=== PATIENT | female | born 1990 | race Caucasian/White ===

== ENCOUNTER 2020-06-21 16:45 | Outpatient (REF) | payer OTHER, SELFPAY ==
[2020-06-22 09:09] LABS: CT PCR NOT DETECTED (Not Detect.); NG PCR NOT DETECTED (Not Detect.)
[2020-06-22 10:30] LABS: BV Int Neg Control Negative (Negative); BV Int Pos Control Positive (Positive)
== END 2020-06-21 16:46 | disposition home or self-care (01) ==
LOC: HO.LNP 16:45
PROVIDERS: Visit Provider Nurse Practitioner Family
DX: Z20.2 Contact with and (suspected) exposure to infections with a predominantly sexual mode of transmission (principal)
CPT/HCPCS: 87480; 87491; 87510; 87591; 87660

== ENCOUNTER 2021-05-06 19:49 | Emergency (ER) | payer OTHER, SELFPAY ==
--- NOTE | ~2021-05-06 | CT_ITS ---
EXAMINATION: CT ABDOMEN AND PELVIS WITHOUT CONTRAST CLINICAL INFORMATION: Right-sided pain COMPARISON: None TECHNIQUE: Multidetector volumetric imaging was performed from the superior aspect of the liver through the pubic symphysis. Sagittal and coronal reformatted images were obtained on the technologist's workstation. This CT examination was performed using dose optimization techniques as appropriate, variously including the following: *Automated exposure control *Adjustment of mA and/or kV according to patient size (this includes techniques or standardized protocols for targeted exams where dose is matched to indication/reason for exam; i.e. extremities or head) *Use of iterative reconstruction technique DLP: 941 mGy-cm FINDINGS: LUNG BASES: The visualized lung bases are unremarkable. LIVER, GALLBLADDER, AND BILIARY TREE: The liver is normal in size, shape, and attenuation. No focal hepatic lesion or biliary ductal dilatation is present. Punctate calcification present in the gallbladder may represent a calculus (4:227) The gallbladder is otherwise unremarkable with no evidence of additional radiopaque gallstones, gallbladder wall thickening, or obvious pericholecystic inflammatory changes. PANCREAS: Unremarkable. SPLEEN: Unremarkable. ADRENAL GLANDS: Unremarkable. KIDNEYS AND URETERS: Right: There is fullness in the right renal collecting system and dilatation of the proximal right ureter with surrounding stranding. However, no stone or obstructing lesion is seen within the right ureter. No right renal masses are seen. Perhaps findings could be due to a recently passed calculus which is no longer in the bladder. Left: The left kidney and ureter appear normal. BLADDER: Unremarkable. GASTROINTESTINAL TRACT: The small and large bowel are unremarkable. The appendix is unremarkable. ABDOMINAL WALL: No significant hernia is appreciated. LYMPH NODES: Normal. VASCULAR: Unremarkable. PELVIC VISCERA: Unremarkable. OSSEOUS STRUCTURES: Unremarkable. CT/CT abdomen pelvis wo con IMPRESSION: 1. There is fullness in the right renal collecting system with some mild stranding around the ureter. No stones are seen. Perhaps the patient had a recently passed tiny stone. 2. Cholelithiasis without cholecystitis
[2021-05-06 20:15] VITALS: BP 180/110; PULSE 102; RESP 18; TEMP 36.7; O2SAT 99; BMI 38.9
--- NOTE | 2021-05-06 21:21 | ED_ITS ---
HPI - Abdominal Pain General Chief Complaint: Abdominal Pain Stated Complaint: Abd pain Time Seen by Provider: 05/06/21 21:21 Source: patient Mode of arrival: ambulatory Limitations: no limitations History of Present Illness HPI narrative: Patient history of hypertension no significant abdominal problems in the past comes here for sudden onset of pain in the right upper side started yesterday at 15:00 sharp in onset off and on getting the pain no nausea no vomiting no relation with food appetite normal no urinary complaints patient never had similar pain in the past. No family history of kidney stone no incre ase in pain on ambulation Related Data Home Medications Medication Instructions Recorded Confirmed levonorgestrel 0.15 mg-ethinyl tab PO 06/21/20 04/14/21 estradiol 0.03 mg tablet Previous Rx's Medication Instructions Recorded amlodipine 5 mg tablet 5 mg PO DAILY #90 tab 06/08/20 hydrochlorothiazide 25 mg tablet 25 mg PO DAILY #90 tab 07/05/20 ciprofloxacin HCl 500 mg tablet 500 mg PO BID #20 tab 05/06/21 (Cipro) Allergies Allergy/AdvReac Type Severity Reaction Status Date / Time No Known Allergies Allergy Verified 04/14/21 13:55 [No Known Allergies*] Review of Systems Review of Systems Yes all other systems are reviewed and are negative Physical Exam Vital Signs: Vital Signs: Last Vital Signs Temp 98.5 F 05/06/21 23:20 Pulse 84 05/06/21 23:20 Resp 15 05/06/21 23:20 BP 117/79 05/06/21 23:20 Pulse Ox 99 05/06/21 23:20 Body Mass Index 38.9 Appearance: Alert. Oriented X3. No acute distress. Eyes: No pallor or icterus ENT: Pharynx normal. Oral Mucosa moist Neck: Normal inspection. Neck supple. CVS: Normal heart rate and rhythm. Pulses normal. Respiratory: No respiratory distress. Equal air entry bilateral, no wheezing/rales/rhonchi Abdomen: Soft and mild tenderness right mid abdomen, Prater sign negative, no significant tenderness right lower quadrant Bowel sounds are present, no mass palpable, slight right CVA tenderness Skin: Skin warm and dry. Normal skin color. Normal skin turgor. Extremities: No lower extremity edema. No calf tenderness Neuro: Oriented X 3. MDM - Abdominal Pain MDM Narrative Medical decision making narrative: Patient's CT scan showed gallstones without any inflammatory changes fullness of the right pelvic kidney pelvis likely patient passed on lab workup shows WBC in the urine patient was given IV Rocephin discharge patient home on [facility] Lab Data Attestation: I reviewed the patient's lab results. Result diagrams: 05/06/21 21:13 05/06/21 21:13 Labs: Lab Results 05/06/21 05/06/21 05/06/21 Range/Units 21:13 21:13 21:13 WBC 15.0 H (4.8-10.8) X10*3/uL RBC 4.90 (4.20-5.50) X10*6/uL Hgb 14.7 (12.0-16.0) g/dl Hct 42.1 (37-47) % MCV 85.9 (80-98) fL MCH 30.0 (27.0-33.0) pg MCHC 34.9 (31.0-35.0) g/dl RDW 11.6 (11.0-16.0) % Plt Count 440 H (160-400) X10*3/uL MPV 8.6 L (9.4-12.3) fL Immature Gran % (Auto) 0.3 (0.0-0.4) % Neut % (Auto) 59.6 (45-73) % Lymph % (Auto) 32.1 (20-40) % [place] % (Auto) 5.5 (2-11) % Eos % (Auto) 2.1 (0-4) % Baso % (Auto) 0.4 (0-2) % Lymph # (Auto) 4.8 (1.2-4.9) X10*3/uL [place] # (Auto) 0.8 (0.1-1.2) X10*3/uL Eos # (Auto) 0.3 (0.0-0.4) X10*3/uL Baso # (Auto) 0.1 (0.0-0.2) X10*3/uL Abs Immat Gran (auto) 0.05 H (0.00-0.03) X10*3/uL Absolute Neuts (auto) 8.9 H (2.0-8.3) X10*3/uL Absolute Nucleated RBC 0.000 (0.0-0.012) X10*3/uL Nucleated RBC % (auto) 0.0 (0.0-0.2) /100WBC Sodium 139 (135-145) mmol/L Potassium 3.9 (3.3-5.1) mmol/L Chloride 103 (96-108) mmol/L Carbon Dioxide 24 (22-29) mmol/L Anion Gap 16 (12-20) BUN 17 H (9-16) mg/dL Creatinine 1.03 (0.5-1.4) mg/dL Estim Creat Clear Calc 88.3 Estimated GFR > 60 Random Glucose 94 (60-115) mg/dL Calcium 9.5 (8.4-10.2) mg/dL Total Bilirubin 0.3 (0.0-1.0) mg/dL AST 19 (5-31) U/L ALT 21 (0-31) U/L Alkaline Phosphatase 64 (39-117) U/L Total Protein 7.2 (6.5-8.0) g/dL Albumin 4.1 (3.5-5.0) g/dL Urine Color YELLOW Urine Appearance CLOUDY Urine pH 6.0 (5.0-8.0) Ur Specific [place] >= 1.030 H (1.005-1.025) Urine Protein 2+ H (NEG-TRACE) MG/DL Urine Glucose (UA) NEG (NEG) MG/DL Urine Ketones NEG (NEG) MG/DL Urine Blood 3+ H (NEG) Urine Nitrite POS H (NEG) Ur Leukocyte Esterase 1+ H (NEG) Urine RBC 10-14 H (0) /HPF Urine WBC TNTC H (0-4) /HPF Urine WBC Clumps NOTED Ur Squamous Epith Cells TRACE /LPF Urine Bacteria 2+ /LPF Urine Mucus TRACE /LPF Urine Test (NEGATIVE) 05/06/21 Range/Units 21:13 WBC (4.8-10.8) X10*3/uL RBC (4.20-5.50) X10*6/uL Hgb (12.0-16.0) g/dl Hct (37-47) % MCV (80-98) fL MCH (27.0-33.0) pg MCHC (31.0-35.0) g/dl RDW (11.0-16.0) % Plt Count (160-400) X10*3/uL MPV (9.4-12.3) fL Immature Gran % (Auto) (0.0-0.4) % Neut % (Auto) (45-73) % Lymph % (Auto) (20-40) % [place] % (Auto) (2-11) % Eos % (Auto) (0-4) % Baso % (Auto) (0-2) % Lymph # (Auto) (1.2-4.9) X10*3/uL [place] # (Auto) (0.1-1.2) X10*3/uL Eos # (Auto) (0.0-0.4) X10*3/uL Baso # (Auto) (0.0-0.2) X10*3/uL Abs Immat Gran (auto) (0.00-0.03) X10*3/uL Absolute Neuts (auto) (2.0-8.3) X10*3/uL Absolute Nucleated RBC (0.0-0.012) X10*3/uL Nucleated RBC % (auto) (0.0-0.2) /100WBC Sodium (135-145) mmol/L Potassium (3.3-5.1) mmol/L Chloride (96-108) mmol/L Carbon Dioxide (22-29) mmol/L Anion Gap (12-20) BUN (9-16) mg/dL Creatinine (0.5-1.4) mg/dL Estim Creat Clear Calc Estimated GFR Random Glucose (60-115) mg/dL Calcium (8.4-10.2) mg/dL Total Bilirubin (0.0-1.0) mg/dL AST (5-31) U/L ALT (0-31) U/L Alkaline Phosphatase (39-117) U/L Total Protein (6.5-8.0) g/dL Albumin (3.5-5.0) g/dL Urine Color Urine Appearance Urine pH (5.0-8.0) Ur Specific [place] (1.005-1.025) Urine Protein (NEG-TRACE) MG/DL Urine Glucose (UA) (NEG) MG/DL Urine Ketones (NEG) MG/DL Urine Blood (NEG) Urine Nitrite (NEG) Ur Leukocyte Esterase (NEG) Urine RBC (0) /HPF Urine WBC (0-4) /HPF Urine WBC Clumps Ur Squamous Epith Cells /LPF Urine Bacteria /LPF Urine Mucus /LPF Urine Test NEGATIVE (NEGATIVE) Discharge Plan Discharge Clinical Impression: UTI (urinary tract infection) Qualifiers: Urinary tract infection type: acute cystitis Hematuria presence: without hematuria Qualified Code(s): N30.00 - Acute cystitis without hematuria Patient Disposition: Home, Self-Care Instructions: Urinary Tract Infection in Women (ED) Additional Instructions: Drink plenty of fluids Take antibiotic as prescribed Report to the ER if increased pain/fever/vomiting Prescriptions: New ciprofloxacin HCl [Cipro] 500 mg tablet 500 mg PO BID Qty: 20 RF: 0 No Action amlodipine 5 mg tablet 5 mg PO DAILY Qty: 90 RF: 8 hydrochlorothiazide 25 mg tablet 25 mg PO DAILY Qty: 90 RF: 8 levonorgestrel-ethinyl estrad 0.15-0.03 mg tablet PO RF: 0 PMFSH Past Medical History Medical History Depression HTN (hypertension) Surgical History No pertinent past surgical history Family History Family History Mother Mental health disorder Father No problems noted. Social History Social History Housing: Apartment Patient Tobacco Use Status: Current everyday Tobacco user Tobacco use type: Cigarette Cigarettes Per Day: 6 e-Cigarette/Vaping Use: Never Used Second Hand Smoke Exposure: No Advance Directives: No Patient : No service: No Current occupational status: employed
[2021-05-06 21:22] LABS: MANUAL DIFF FLAG NO
[2021-05-06 21:23] LABS: Basophils Absolute Auto 0.1 X10*3/uL (0.0-0.2); Basophils Percent Auto 0.4 % (0-2); Eosinophils Absolute Auto 0.3 X10*3/uL (0.0-0.4); Eosinophils Percent Auto 2.1 % (0-4); Hematocrit 42.1 % (37-47); Hemoglobin 14.7 g/dl (12.0-16.0); Imm Gran Abs Auto 0.05 X10*3/uL (0.00-0.03); Imm Gran Pct Auto 0.3 % (0.0-0.4); Lymphocytes Absolute Auto 4.8 X10*3/uL (1.2-4.9); Lymphocytes Percent Auto 32.1 % (20-40); Mean Corpuscular HGB Conc 34.9 g/dl (31.0-35.0); Mean Corpuscular Volume 85.9 fL (80-98); Mean Platelet Volume 8.6 fL (9.4-12.3); Monocytes Absolute Auto 0.8 X10*3/uL (0.1-1.2); Monocytes Percent Auto 5.5 % (2-11); Neutrophils Absolute Auto 8.9 X10*3/uL (2.0-8.3); Neutrophils Percent Auto 59.6 % (45-73); Platelet Count 440 X10*3/uL (160-400); Red Cell Distribution Width 11.6 % (11.0-16.0)
[2021-05-06 21:32] LABS: Appearance Urine CLOUDY; Color Urine YELLOW; Glucose Urine UA NEG (NEG); Leukocyte Esterase Urine 1+ (NEG); Nitrite Urine POS (NEG); Specific Gravity - Urine >= 1.030 (1.005-1.025); UACC Culture Trigger YES; Urine Blood 3+ (NEG); Urine Ketones NEG (NEG); Urine Protein 2+ MG/DL (NEG-TRACE)
[2021-05-06] MEDS: Morphine Sulfate 4 MG/ML CARTRIDGE IVPUSH (21:34)
[2021-05-06] MEDS: 0.9 % Sodium Chloride 1,000 ML 999 ML IVCONT (21:34)
[2021-05-06] MEDS: ondansetron HCL 4 MG/2 ML VIAL IVPUSH (21:34)
[2021-05-06 21:38] LABS: Alanine Aminotransferase 21 U/L (0-31); Albumin Level 4.1 g/dL (3.5-5.0); Alkaline Phosphatase 64 U/L (39-117); Anion Gap 16 (12-20); Aspartate Amino Transferase 19 U/L (5-31); Bilirubin Total 0.3 mg/dL (0.0-1.0); Blood Urea Nitrogen 17 mg/dL (9-16); Calcium 9.5 mg/dL (8.4-10.2); Carbon Dioxide 24 mmol/L (22-29); Chloride 103 mmol/L (96-108); Creatinine Clr Calc Pharmacy 88.3; Estimated Glomerular Filt Rate > 60; Glucose Random 94 mg/dL (60-115); Potassium 3.9 mmol/L (3.3-5.1); Sodium 139 mmol/L (135-145); Total Protein 7.2 g/dL (6.5-8.0)
[2021-05-06 21:43] LABS: UPreg QC Valid YES; Urine Pregnancy NEGATIVE (NEGATIVE)
[2021-05-06 21:54] LABS: WBC Clumps Urine NOTED; WBC Urine TNTC /HPF (0-4)
[2021-05-06 21:56] LABS: Bacteria Urine 2+ /LPF; Mucus Urine TRACE /LPF; Squamous Epithelial Cell Urine TRACE /LPF
[2021-05-06 23:20] VITALS: BP 117/79; PULSE 84; RESP 15; TEMP 36.9; O2SAT 99
[2021-05-06] MEDS: cefTRIAXone sodium 1 GM in 0.9 % Sodium Chloride 50 ML IV (23:24)
== END 2021-05-07 00:20 | disposition home or self-care (01) ==
PROVIDERS: Emergency Provider Internal Medicine; PCP Internal Medicine
DX: N30.00 Acute cystitis without hematuria (principal); R10.11 Right upper quadrant pain; F17.210 Nicotine dependence, cigarettes, uncomplicated; I10 Essential (primary) hypertension; Z79.899 Other long term (current) drug therapy; Z71.6 Tobacco abuse counseling
CPT/HCPCS: 36415; 74176; 80053; 81001; 81025; 85025; 87086; 87088; 87186; 96361; 96365; 96375; 99284; J0696; J2270; J2405

== ENCOUNTER 2021-07-07 07:03 | Emergency (ER) | payer OTHER, SELFPAY ==
[2021-07-07 07:25] VITALS: BP 140/91; PULSE 123; RESP 18; TEMP 36.6; O2SAT 98; BMI 40.2
--- NOTE | 2021-07-07 08:11 | ED.SKABFB ---
HPI - Skin/Abscess/Foreign Bdy General Chief complaint: Skin/Abscess/Foreign Body Stated complaint: boil r leg Time Seen by Provider: 07/07/21 07:52 Source: patient Mode of arrival: ambulatory Limitations: no limitations History of Present Illness HPI narrative: 30-year-old female who presents emergency department for evaluation of skin infection to the right thigh. Patient states that approximately 2 weeks prior she had infection to her right knee, she states that it started out as a pimple and then she popped the pimple. She states that she squeezed pus out of the knee abscess for several days and eventually this healed. She states that on Sunday, 5 days prior to evaluation she noticed redness and pain to her right inner thigh. She states that the redness and pain got worse and so she called her doctor on Sunday (2 days prior to evaluation) and was started on cephalexin 250 mg 4 times a day. She states she has also been applying heat to the area using a heating pad. She has been taking ibuprofen for pain as well. Despite this treatment, she states that the redness has not gotten better and the pain has gotten worse. She states the pain is a constant, burning sensation which is severe. The patient denied fever, chills, nausea, vomiting, weakness or fatigue. Related Data Home Medications Medication Instructions Recorded Confirmed levonorgestrel 0.15 mg-ethinyl tab PO 06/21/20 07/05/21 estradiol 0.03 mg tablet Previous Rx's Medication Instructions Recorded amlodipine 5 mg tablet 5 mg PO DAILY #90 tab 06/08/20 hydrochlorothiazide 25 mg tablet 25 mg PO DAILY #90 tab 07/05/20 cephalexin 250 mg capsule 250 mg PO Q6H #20 cap 07/05/21 cephalexin 250 mg capsule 250 mg PO QID 7 Days #28 cap 07/07/21 doxycycline hyclate 100 mg tablet 100 mg PO Q12H 7 Days #14 tab 07/07/21 morphine 15 mg immediate release 15 mg PO Q4-6H PRN #10 tab 07/07/21 tablet Allergies Allergy/AdvReac Type Severity Reaction Status Date / Time No Known Allergies Allergy Verified 07/05/21 13:29 [No Known Allergies*] Review of Systems Review of Systems: Yes all other systems are reviewed and are negative [facility] Past Medical History [facility] Narrative: Social history: She does smoke cigarettes, she occasionally drinks alcohol, she denies drug use. Medical History Depression HTN (hypertension) Morbid obesity Surgical History No pertinent past surgical history Family History Family History Mother Mental health disorder Father No problems noted. Social History Social History Housing: Apartment Patient Tobacco Use Status: Current everyday Tobacco user Tobacco use type: Cigarette Cigarettes Per Day: 6 e-Cigarette/Vaping Use: Never Used Second Hand Smoke Exposure: No Advance Directives: No Advance Directives Information Provided: No service: No Current occupational status: employed Physical Exam Vital Signs: Vital Signs: Last Vital Signs Temp 97.8 F 07/07/21 07:25 Pulse 123 H 07/07/21 07:25 Resp 18 07/07/21 07:25 BP 140/91 H 07/07/21 07:25 Pulse Ox 98 07/07/21 07:25 Body Mass Index 40.2 Const: General: cooperative, healthy appearing and no acute distress Orientation/consciousness: oriented to person and oriented to place Limitations: no limitations HENMT: Head: Yes normocephalic and Yes atraumatic Eyes: General: appearance normal, both eyes and all related structures Resp: Effort & Inspection: normal respiratory effort Skin: Other: 6 x 4 cm oval shaped erythema to the right medial thigh, the erythema is warm to the touch and does not ekaterina, the skin is indurated with no areas of flocculence, the erythema is tender to palpation Neuro: General: oriented to person and oriented to place Cognition (Neuro): normal cognition Extrem: Other: Extremities neurovascular intact, erythema to the right medial thighs discussed above Psych: Appearance: grossly normal Mental Status: mental status grossly normal Speech and movement: Normal speech and movement present Affect: normal affect Attitude: cooperative Course Course Course Narrative: 30-year-old female who presents emergency department for evaluation of 5 days of painful erythema to the right medial thigh, on cephalexin 250 mg 4 times a day for 2 days with no improvement of her erythema. Vital signs revealed an elevated blood pressure of 140/91 and elevated pulse of 123 otherwise were unremarkable. Physical examination did reveal a 6 x 4 cm oval area of erythema to the right medial thigh, the erythema is warm to the touch and is tender to palpation. The erythema is indurated but there was no clear flocculent area on my examination. Patient's presentation is consistent with a cellulitis versus early abscess. I will increase the patient's cephalexin to 500 mg 4 times a day for 1 week and also start the patient on doxycycline 100 mg twice a day for 7 days to give her MRSA coverage. The patient is having severe pain which is not relieved by ibuprofen or Tylenol therefore I will give her a limited prescription for morphine 15 mg every 4 hours as needed for pain (dispense 10). The patient was given verbal and printed instructions and discharged home. Discharge Plan Discharge Clinical Impression: Cellulitis Qualifiers: Site of cellulitis: extremity Site of cellulitis of extremity: lower extremity Laterality: right Qualified Code(s): L03.115 - Cellulitis of right lower limb Patient Disposition: Home, Self-Care Instructions: Cellulitis (ED) Additional Instructions: Early abscess verses indurated cellulitis Discharge Instructions Your exam is consistent with an infection of your skin (cellulitis). On my examination your skin is hard (indurated) and not soft and squishy (flocculent). Usually an abscess that needs to be drained is soft and squishy. I do not think that you have a drainable abscess at this time therefore I want to continue to treat you with antibiotics and heat. I am increasing your dose of Keflex (cephalexin). Take Keflex (cephalexin) 250 mg, pills, 2 pill 4 times a day for 7 days. This is an antibiotic that will help fight the non MRSA type infection. Also take doxycycline 100 mg pills, 1 pill twice a day for 7 days. This is an antibiotic that will fight MRSA type infections Take ibuprofen 200mg pills, 3 pills every 6 hours as needed for pain, Also take Tylenol(acetaminophen) 500 mg pills, 2 pills every 6 hours as needed for pain. For pain not relieved by ibuprofen or Tylenol take morphine 15 mg pills, 1 pill every 4 hours as needed for pain. Do not drive or work while taking this medication since they can cause sleepiness. Oxycodone is a narcotic medication that can be addicting. If you are concerned about addiction you can ask the pharmacist for less pills or do not get this prescription filled. Apply warm compresses or a heating pad on low for 15 minutes 4-6 times a day. This increases the blood flow to the area and helps the healing process. Stay off your feet and keep your leg elevated this will also help the healing process. Watch for signs of worsening infection or abscess formation which include fever, increased pain, increased redness or increased swelling, red lines traveling away from the cellulitis or if the red area turned soft and squishy. IF you think the infection is getting worse or if you develop any new symptoms that are concerning you, then return to the Emergency Department or follow up with your doctor for a recheck. Please follow up with your doctor in 2 days for a recheck. Please see the work note Prescriptions: New cephalexin 250 mg capsule 250 mg PO QID 7 Days Qty: 28 RF: 0 doxycycline hyclate 100 mg tablet 100 mg PO Q12H 7 Days Qty: 14 RF: 0 morphine 15 mg tablet 15 mg PO Q4-6H PRN (Reason: pain) Qty: 10 RF: 0 No Action amlodipine 5 mg tablet 5 mg PO DAILY Qty: 90 RF: 8 hydrochlorothiazide 25 mg tablet 25 mg PO DAILY Qty: 90 RF: 8 levonorgestrel-ethinyl estrad 0.15-0.03 mg tablet PO RF: 0 cephalexin 250 mg capsule 250 mg PO Q6H Qty: 20 RF: 0 Stand Alone Forms: Work/School Release
== END 2021-07-07 08:36 | disposition home or self-care (01) ==
PROVIDERS: Emergency Provider Emergency Medicine Emergency Medical Services; PCP Internal Medicine
DX: L03.115 Cellulitis of right lower limb (principal); M79.651 Pain in right thigh; I10 Essential (primary) hypertension; E66.01 Morbid (severe) obesity due to excess calories
CPT/HCPCS: 99282; 99283

== ENCOUNTER 2021-07-09 11:16 | Emergency (ER) | payer OTHER, SELFPAY ==
--- NOTE | ~2021-07-09 | US_ITS ---
EXAMINATION: US VENOUS WITH DOPPLER LOWER EXTREMITY, RIGHT CLINICAL INFORMATION: Right lower extremity swelling. COMPARISON: None TECHNIQUE: Ultrasound of the deep veins is performed from the hip to the calf with compression sonography and color and pulse Doppler assessment. Spectral analysis with color-flow imaging is performed. FINDINGS: There is normal venous compression and respiratory variation and augmented flow. The visualized common femoral vein, femoral vein, profunda femoral vein, popliteal vein, and the trifurcation region shows no evidence of deep venous thrombosis. There is no significant popliteal fossa cyst. It was difficult to compress the mid segment of the femoral vein due to pain; however, normal color flow is noted in this segment. If the patient's symptoms persist, followup ultrasound in 5 days 7 days might be of value to exclude proximal propagation from a non-visualized calf vein. In the area of redness and hard lump in the right mid thigh, there is evidence of subcutaneous soft tissue edema noted in the mid right thigh with an ill-defined hypoechoic area with increased peripheral vascularity measuring 2.2 x 1.8 x 2.4 cm. US/US venous duplex LE RT IMPRESSION: Compressibility in the mid segment of the right femoral vein could not be assessed due to pain; however, normal color flow is noted on color Doppler images. No DVT demonstrated in the right lower extremity. Soft tissue edema in the right mid thigh in the region of reddish skin discoloration and hard lump; ill-defined hypoechoic area in the region may represent focal fluid/abscess collection. Recommend clinical correlation. As clinically deemed necessary consider further evaluation with contrast-enhanced CT or MRI.
--- NOTE | ~2021-07-09 | CT_ITS ---
EXAMINATION: CT FEMUR WITH CONTRAST, RIGHT CLINICAL INFORMATION: Right inner thigh edema, induration, pain COMPARISON: None TECHNIQUE: Axial imaging. Sagittal and coronal reconstructions. 85 mL Omnipaque [address] examination was performed using dose optimization techniques as appropriate, variously including the following: *Automated exposure control *Adjustment of mA and/or kV according to patient size (this includes techniques or standardized protocols for targeted exams where dose is matched to indication/reason for exam; i.e. extremities or head) *Use of iterative reconstruction technique DLP: 297 mGy-cm FINDINGS: There were opacities in the medial subcutaneous tissues of the upper/mid thigh. The more prominent confluent changes extend a distance approximately 7 cm craniocaudal. No peripherally enhancing organized fluid collections identified by CT . The findings extend to the underlying fascial plane. There is skin thickening along the medial aspect of the thigh as well. Differential consideration include infectious, inflammatory etiologies.. No evidence of significant inflammatory changes or fluid deep to the fascial plane, the muscles or intramuscular fascial planes.. Subcentimeter right groin lymph nodes. No evidence of acute osseous abnormality. Articulation at the right hip joint is maintained. Mild right hip arthritis. CT/CT femur RT w con IMPRESSION: Findings in the medial subcutaneous tissues of the upper/mid thigh, including an area of more confluent changes. No peripherally enhancing organized fluid collection identified by CT . Differential consideration include infectious, inflammatory etiologies. Recommend clinical correlation, management and follow-up. Follow-up ultrasound or cross-sectional imaging could be considered if there is clinical concern for a worsening symptoms/developing abscess.
[2021-07-09 11:39] VITALS: BP 137/100; PULSE 102; RESP 18; TEMP 36.6; O2SAT 98; BMI 40.2
--- NOTE | 2021-07-09 12:06 | ED.GENADULT ---
HPI - General Adult General Chief complaint: General Medical <VITALIY Wan - Last Filed: 07/09/21 16:32> Stated complaint: ?rt leg cellulitis <VITALIY Wan - Last Filed: 07/09/21 16:32> Time Seen by Provider: 07/09/21 11:50 <VITALIY Wan - Last Filed: 07/09/21 16:32> Source: patient <VITALIY Wan - Last Filed: 07/09/21 16:32> Mode of arrival: ambulatory <VITALIY Wan Last Filed: 07/09/21 16:32> Limitations: no limitations <VITALIY Wan Last Filed: 07/09/21 16:32> History of Present Illness HPI narrative: 31-year-old female with no known medical history presents to the emergency department with concerns of right inner thigh pain, fevers and chills X6 days progressively worsening. Patient states she was seen here three days ago and was told she had right inner thigh cellulitis. Patient states she is on two different antibiotics. Which were prescribed to her three days ago, she states that the redness has not improved and the area has become tense, hard and much more painful. Patient has been applying heat to the area with little to no relief. She was prescribed morphine, however, she states the pain is so severe it isn't helping so she hasn't been taking it. She also reports subjective fevers and chills over the past few days. Denies SOB, nausea, vomiting, abdominal pain, headache, chest pain, weakness. <VITALIY Wan - Last Filed: 07/09/21 16:32> Onset (ago): day(s) (6) <VITALIY Wan Last Filed: 07/09/21 16:32> Location: right (right inner thigh ) <VITALIY Wan Last Filed: 07/09/21 16:32> Radiation: non-radiation <VITALIY Wan Last Filed: 07/09/21 16:32> Severity: severe <VITALIY Wan Last Filed: 07/09/21 16:32> Severity scale (1-10): 10 <VITALIY Wan - Last Filed: 07/09/21 16:32> Quality: burning and constant <VITALIY Wan - Last Filed: 07/09/21 16:32> Pain Consistency: constant <VITALIY Wan Last Filed: 07/09/21 16:32> Relieving factors: none <VITALIY Wan - Last Filed: 07/09/21 16:32> Exacerbating factors: none <VITALIY Wan - Last Filed: 07/09/21 16:32> Associated symptoms: fever/chills <VITALIY Wan - Last Filed: 07/09/21 16:32> Treatments prior to arrival: NSAID <VITALIY Wan Last Filed: 07/09/21 16:32> Related Data Home medications: Home Medications Medication Instructions Recorded Confirmed levonorgestrel 0.15 mg-ethinyl tab PO 06/21/20 07/05/21 estradiol 0.03 mg tablet Previous Rx's Medication Instructions Recorded hydrochlorothiazide 25 mg tablet 25 mg PO DAILY #90 tab 07/05/20 cephalexin 250 mg capsule 250 mg PO Q6H #20 cap 07/05/21 amlodipine 5 mg tablet 5 mg PO DAILY #90 tab 07/07/21 cephalexin 250 mg capsule 250 mg PO QID 7 Days #28 cap 07/07/21 doxycycline hyclate 100 mg tablet 100 mg PO Q12H 7 Days #14 tab 07/07/21 morphine 15 mg immediate release 15 mg PO Q4-6H PRN #10 tab 07/07/21 tablet oxycodone 5 mg tablet 5 mg PO BID PRN #6 tab 07/09/21 <VITALIY Wan - Last Filed: 07/09/21 16:32> Allergies/adverse reactions: Allergies Allergy/AdvReac Type Severity Reaction Status Date / Time No Known Allergies Allergy Verified 07/05/21 13:29 [No Known Allergies*] <VITALIY Wan Last Filed: 07/09/21 16:32> Review of Systems Review of Systems: Constitutional : No Weight loss, No Fever, No Chills, No Fatigue, No Malaise Eyes: No Eye Pain, No Swelling, No Redness Cardiovascular : No Chest Pain, No SOB, No Dyspnea on Exertion, No Orthopnea, No Edema, No Palpitations Respiratory : No Cough, No Sputum, No Wheezing Gastrointestinal : No Nausea, No Vomiting, No Diarrhea, No Constipation, No abdominal Pain, No Hematochezia, No Melena Genitourinary : No Dysuria, No Urinary Frequency, No Hematuria, Musculoskeletal : No joint pain, No Myalgias, No Joint Swelling Skin : No Skin Lesions, No rash, +cellulitis Neuro : No Weakness, No Numbness, No Dizziness, No Headache All other systems reviewed and are negative <VITALIY Wan - Last Filed: 07/09/21 16:32> [facility] Past Medical History Attestation statement: The following information was validated with the patient. <VITALIY Wan - Last Filed: 07/09/21 16:32> Source: old records reviewed and nursing notes reviewed <VITALIY Wan - Last Filed: 07/09/21 16:32> Medical History: Medical History Depression HTN (hypertension) Morbid obesity <VITALIY Wan - Last Filed: 07/09/21 16:32> Surgical History: Surgical History No pertinent past surgical history <VITALIY Wan - Last Filed: 07/09/21 16:32> Family History Family History: Family History Mother Mental health disorder Father No problems noted. <VITALIY Wan - Last Filed: 07/09/21 16:32> Social History Social History: Social History Housing: Apartment Patient Tobacco Use Status: Current everyday Tobacco user Tobacco use type: Cigarette Cigarettes Per Day: 6 e-Cigarette/Vaping Use: Never Used Second Hand Smoke Exposure: No Advance Directives: No Patient : No service: No Current occupational status: employed <VITALIY Wan - Last Filed: 07/09/21 16:32> Physical Exam Vital Signs: Vital Signs: Last Vital Signs Temp 98.1 F 07/09/21 14:39 Pulse 80 07/09/21 14:39 Resp 18 07/09/21 14:39 BP 98/60 07/09/21 14:39 Pulse Ox 99 07/09/21 14:39 Body Mass Index 40.2 <VITALIY Wan - Last Filed: 07/09/21 16:32> Vital Signs: Last Vital Signs Temp 98.1 F 07/09/21 14:39 Pulse 80 07/09/21 14:39 Resp 18 07/09/21 14:39 BP 98/60 07/09/21 14:39 Pulse Ox 99 07/09/21 14:39 Body Mass Index 40.2 <VITALIY Corcoran - Last Filed: 07/09/21 21:05> Appearance: Alert.? Oriented X3.? No acute distress.? Head: Normocephalic, atraumatic, no step-offs or deformities Eyes: Pupils equal, round and reactive to light.? ENT: Pharynx normal.? Neck: Normal inspection.? Neck supple.? CVS: Normal heart rate and rhythm.? Pulses normal.? Respiratory: No respiratory distress.? Breath sounds normal.? Abdomen: Soft and nontender.? Skin: Skin warm and dry.? Normal skin color.? Normal skin turgor.?+ area of erythema to right medial thigh with induration and pain to palpation. Extremities: No lower extremity edema.? No calf ttp. Negative sivakumar 5/5 strength to bilateral upper and lower extremities Back: No midline tenderness, no C-spine tenderness, full range of motion, no CVA tenderness bilaterally Neuro: Oriented X 3.? No motor deficit.? No sensory deficit. <VITALIY Wan - Last Filed: 07/09/21 16:32> Course Course Course Narrative: patient seen and examined agree with assessment and plan <VITALIY Corcoran Last Filed: 07/09/21 21:05> Reevaluation(s) Reevaluation #1: Patient is extremely nervous, and she is a tough stick. I was able to put in an 18 gauge IV in the left AC. She will be given 0.5 of Ativan. And Motrin for pain. <VITALIY Wan - Last Filed: 07/09/21 16:32> Time: 13:10 <VITALIY Wan - Last Filed: 07/09/21 16:32> Reevaluation #2: US- No DVT in the RLE. Soft tissue edema is noted in the right mid thigh. Ill defined hypoechoic area was noted that could represent focal fluid/abscess collection will do a CT with contrast to further evaluate this finding. <VITALIY Wan - Last Filed: 07/09/21 16:32> Time: 13:31 <VITALIY Wan - Last Filed: 07/09/21 16:32> Reevaluation #3: Slight leukocytosis noted, platelets are noted to be elevated, however it appears this is not new, she had elevated platelets on 05/06/21. Lactic 0.6. CK normal. No electrolyte abnormalities. CT of right lower extremity pending. The patient's vital signs have been repeated, patient's vital signs are now within normal limits, I suspect that patient's vitals were initially elevated secondary to anxiety, and severe pain. <VITALIY Wan - Last Filed: 07/09/21 16:32> Time: 14:57 <VITALIY Wan - Last Filed: 07/09/21 16:32> Additional Reevaluation(s): 1538 CT shows findings in subcutaneous tissues of the upper/mid thigh,including an area of more confluent changes. No peripherally enhancing organized fluid collection identified by CT. Patient will finish doses of IV antibiotics here and should continue her home PO antibiotics. I have advised her to continue applying heat to the area. This is likley an abcess forming, she should follow up with her PCP and may require a f/u ultrasound. I will also provide her with general surgeons information incase she would like a second opinion, this is not something that can be drained at the bedside here today. Patient has been given strict return precautions and has been told to return with fevers, chills, nausea, vomiting, abdominal pain, weakness, headache, chest pain, shortness of breath and/or worsening symptoms. <VITALIY Wan - Last Filed: 07/09/21 16:32> Medical Decision Making [facility] Narrative Medical decision making narrative: 1204 31-year-old female past medical history significant for depression, HTN presents to the emergency department with concerns of pain and swelling to the right inner thigh X 6 days and subjective fevers and chills X2 days progressively worsening. Patient states that she was seen here in the emergency department 3 days ago where she was told she had cellulitis, she was put on Keflex and doxycycline. She mentions that before the emergency department put her on medication her primary care provider had also put her on an antibiotic with no relief. She has been applying heat to the area. Upon physical examination patient appears uncomfortable but in no acute distress. Lungs are clear to auscultation bilaterally. S1 and S2 are appreciated free of murmurs. Abdomen is soft nontender nondistended. There is an area of erythema to right medial thigh with induration and pain to palpation. Area of induration measures around 12cm X 7 cm. Negative homans sign. No calf tenderness to palpation b/l. No focal neuro deficits. Patient is noted to be hypertensive and tachycardic. Patient reports severe pain at this time which could be contributing to these abnormal vital signs, and she has a history of hypertension, vitals will be checked again when patient appear s more comfortable. A sepsis focus exam was done. At this time infection is suspected (1204) basic labs will be obtained, blood cultures, lactic, CK, covid, mag, and venous duplex right lower exremitiy and extremity US. Will also give fluids, vanco and zosyn Will rule out abcess, DVT, cellulitis <VITALIY Wan - Last Filed: 07/09/21 16:32> Lab Data Result diagrams: : 07/09/21 13:06 07/09/21 13:05 <VITALIY Wan - Last Filed: 07/09/21 16:32> Labs: Lab Results 07/09/21 07/09/21 07/09/21 Range/Units 13:04 13:05 13:06 WBC 11.7 H (4.8-10.8) X10*3/uL RBC 4.65 (4.20-5.50) X10*6/uL Hgb 13.9 (12.0-16.0) g/dl Hct 40.9 (37.0-47.0) % MCV 88.0 (80.0-98.0) fL MCH 29.9 (27.0-33.0) pg MCHC 34.0 (31.0-35.0) g/dl RDW 11.6 (11.0-16.0) % Plt Count 416 H (160-400) X10*3/uL MPV 8.5 L (9.4-12.3) fL Immature Gran % (Auto) 0.3 (0.0-0.4) % Neut % (Auto) 63.4 (45-73) % Lymph % (Auto) 28.3 (20-40) % Smyth % (Auto) 5.6 (2-11) % Eos % (Auto) 2.1 (0-4) % Baso % (Auto) 0.3 (0-2) % Lymph # (Auto) 3.3 (1.2-4.9) X10*3/uL Smyth # (Auto) 0.7 (0.1-1.2) X10*3/uL Eos # (Auto) 0.2 (0.0-0.4) X10*3/uL Baso # (Auto) 0.0 (0.0-0.2) X10*3/uL Abs Immat Gran (auto) 0.03 (0.00-0.03) X10*3/uL Absolute Neuts (auto) 7.4 (2.0-8.3) x10*3/uL Absolute Nucleated RBC 0.000 (0.0-0.012) X10*3/uL Nucleated RBC % (auto) 0.0 (0.0-0.2) /100WBC Sodium 138 (135-145) mmol/L Potassium 4.2 (3.3-5.1) mmol/L Chloride 104 (96-108) mmol/L Carbon Dioxide 25 (22-29) mmol/L Anion Gap 13 (12-20) BUN 10 (9-16) mg/dL Creatinine 0.84 (0.5-1.4) mg/dL Estim Creat Clear Calc 105.2 Estimated GFR > 60 Random Glucose 91 (60-115) mg/dL Lactic Acid 0.6 (0.5-2.0) mmol/L Calcium 9.1 (8.4-10.2) mg/dL Magnesium 1.9 (1.6-2.6) mg/dL Total Bilirubin 0.4 (0.0-1.0) mg/dL AST 13 (5-31) U/L ALT 14 (0-31) U/L Alkaline Phosphatase 64 (39-117) U/L Total Creatine Kinase 84 (26-140) U/L Total Protein 6.8 (6.5-8.0) g/dL Albumin 3.8 (3.5-5.0) g/dL Urine Test (NEGATIVE) COVID-19 (SP) (Negative) COVID-19 Clin Com 07/09/21 07/09/21 Range/Units 13:07 13:51 WBC (4.8-10.8) X10*3/uL RBC (4.20-5.50) X10*6/uL Hgb (12.0-16.0) g/dl Hct (37.0-47.0) % MCV (80.0-98.0) fL MCH (27.0-33.0) pg MCHC (31.0-35.0) g/dl RDW (11.0-16.0) % Plt Count (160-400) X10*3/uL MPV (9.4-12.3) fL Immature Gran % (Auto) (0.0-0.4) % Neut % (Auto) (45-73) % Lymph % (Auto) (20-40) % Smyth % (Auto) (2-11) % Eos % (Auto) (0-4) % Baso % (Auto) (0-2) % Lymph # (Auto) (1.2-4.9) X10*3/uL Smyth # (Auto) (0.1-1.2) X10*3/uL Eos # (Auto) (0.0-0.4) X10*3/uL Baso # (Auto) (0.0-0.2) X10*3/uL Abs Immat Gran (auto) (0.00-0.03) X10*3/uL Absolute Neuts (auto) (2.0-8.3) x10*3/uL Absolute Nucleated RBC (0.0-0.012) X10*3/uL Nucleated RBC % (auto) (0.0-0.2) /100WBC Sodium (135-145) mmol/L Potassium (3.3-5.1) mmol/L Chloride (96-108) mmol/L Carbon Dioxide (22-29) mmol/L Anion Gap (12-20) BUN (9-16) mg/dL Creatinine (0.5-1.4) mg/dL Estim Creat Clear Calc Estimated GFR Random Glucose (60-115) mg/dL Lactic Acid (0.5-2.0) mmol/L Calcium (8.4-10.2) mg/dL Magnesium (1.6-2.6) mg/dL Total Bilirubin (0.0-1.0) mg/dL AST (5-31) U/L ALT (0-31) U/L Alkaline Phosphatase (39-117) U/L Total Creatine Kinase (26-140) U/L Total Protein (6.5-8.0) g/dL Albumin (3.5-5.0) g/dL Urine Test NEGATIVE (NEGATIVE) COVID-19 (SP) Negative (Negative) COVID-19 Clin Com See Note <VITALIY Wan - Last Filed: 07/09/21 16:32> Lab Results 07/09/21 07/09/21 07/09/21 Range/Units 13:04 13:05 13:06 WBC 11.7 H (4.8-10.8) X10*3/uL RBC 4.65 (4.20-5.50) X10*6/uL Hgb 13.9 (12.0-16.0) g/dl Hct 40.9 (37.0-47.0) % MCV 88.0 (80.0-98.0) fL MCH 29.9 (27.0-33.0) pg MCHC 34.0 (31.0-35.0) g/dl RDW 11.6 (11.0-16.0) % Plt Count 416 H (160-400) X10*3/uL MPV 8.5 L (9.4-12.3) fL Immature Gran % (Auto) 0.3 (0.0-0.4) % Neut % (Auto) 63.4 (45-73) % Lymph % (Auto) 28.3 (20-40) % Smyth % (Auto) 5.6 (2-11) % Eos % (Auto) 2.1 (0-4) % Baso % (Auto) 0.3 (0-2) % Lymph # (Auto) 3.3 (1.2-4.9) X10*3/uL Smyth # (Auto) 0.7 (0.1-1.2) X10*3/uL Eos # (Auto) 0.2 (0.0-0.4) X10*3/uL Baso # (Auto) 0.0 (0.0-0.2) X10*3/uL Abs Immat Gran (auto) 0.03 (0.00-0.03) X10*3/uL Absolute Neuts (auto) 7.4 (2.0-8.3) x10*3/uL Absolute Nucleated RBC 0.000 (0.0-0.012) X10*3/uL Nucleated RBC % (auto) 0.0 (0.0-0.2) /100WBC Sodium 138 (135-145) mmol/L Potassium 4.2 (3.3-5.1) mmol/L Chloride 104 (96-108) mmol/L Carbon Dioxide 25 (22-29) mmol/L Anion Gap 13 (12-20) BUN 10 (9-16) mg/dL Creatinine 0.84 (0.5-1.4) mg/dL Estim Creat Clear Calc 105.2 Estimated GFR > 60 Random Glucose 91 (60-115) mg/dL Lactic Acid 0.6 (0.5-2.0) mmol/L Calcium 9.1 (8.4-10.2) mg/dL Magnesium 1.9 (1.6-2.6) mg/dL Total Bilirubin 0.4 (0.0-1.0) mg/dL AST 13 (5-31) U/L ALT 14 (0-31) U/L Alkaline Phosphatase 64 (39-117) U/L Total Creatine Kinase 84 (26-140) U/L Total Protein 6.8 (6.5-8.0) g/dL Albumin 3.8 (3.5-5.0) g/dL Urine Test (NEGATIVE) COVID-19 (SP) (Negative) COVID-19 [facility] 07/09/21 07/09/21 Range/Units 13:07 13:51 WBC (4.8-10.8) X10*3/uL RBC (4.20-5.50) X10*6/uL Hgb (12.0-16.0) g/dl Hct (37.0-47.0) % MCV (80.0-98.0) fL MCH (27.0-33.0) pg MCHC (31.0-35.0) g/dl RDW (11.0-16.0) % Plt Count (160-400) X10*3/uL MPV (9.4-12.3) fL Immature Gran % (Auto) (0.0-0.4) % Neut % (Auto) (45-73) % Lymph % (Auto) (20-40) % Smyth % (Auto) (2-11) % Eos % (Auto) (0-4) % Baso % (Auto) (0-2) % Lymph # (Auto) (1.2-4.9) X10*3/uL Smyth # (Auto) (0.1-1.2) X10*3/uL Eos # (Auto) (0.0-0.4) X10*3/uL Baso # (Auto) (0.0-0.2) X10*3/uL Abs Immat Gran (auto) (0.00-0.03) X10*3/uL Absolute Neuts (auto) (2.0-8.3) x10*3/uL Absolute Nucleated RBC (0.0-0.012) X10*3/uL Nucleated RBC % (auto) (0.0-0.2) /100WBC Sodium (135-145) mmol/L Potassium (3.3-5.1) mmol/L Chloride (96-108) mmol/L Carbon Dioxide (22-29) mmol/L Anion Gap (12-20) BUN (9-16) mg/dL Creatinine (0.5-1.4) mg/dL Estim Creat Clear Calc Estimated GFR Random Glucose (60-115) mg/dL Lactic Acid (0.5-2.0) mmol/L Calcium (8.4-10.2) mg/dL Magnesium (1.6-2.6) mg/dL Total Bilirubin (0.0-1.0) mg/dL AST (5-31) U/L ALT (0-31) U/L Alkaline Phosphatase (39-117) U/L Total Creatine Kinase (26-140) U/L Total Protein (6.5-8.0) g/dL Albumin (3.5-5.0) g/dL Urine Test NEGATIVE (NEGATIVE) COVID-19 (SP) Negative (Negative) COVID-19 Clin Com See Note <VITALIY Corcoran - Last Filed: 07/09/21 21:05> Imaging Data Ultrasound right lower extremity: Attestation: I personally reviewed and interpreted this imaging study as follows: <VITALIY Wan - Last Filed: 07/09/21 16:32> Radiologist's impression: FINDINGS: There is normal venous compression and respiratory variation and augmented flow. The visualized common femoral vein, femoral vein, profunda femoral vein, popliteal vein, and the trifurcation region shows no evidence of deep venous thrombosis. There is no significant popliteal fossa cyst. It was difficult to compress the mid segment of the femoral vein due to pain; however, normal color flow is noted in this segment. If the patient's symptoms persist, followup ultrasound in 5 days 7 days might be of value to exclude proximal propagation from a non-visualized calf vein. In the area of redness and hard lump in the right mid thigh, there is evidence of subcutaneous soft tissue edema noted in the mid right thigh with an ill-defined hypoechoic area with increased peripheral vascularity measuring 2.2 x 1.8 x 2.4 cm. US/US venous duplex LE RT IMPRESSION: Compressibility in the mid segment of the right femoral vein could not be assessed due to pain; however, normal color flow is noted on color Doppler images. No DVT demonstrated in the right lower extremity. Soft tissue edema in the right mid thigh in the region of reddish skin discoloration and hard lump; ill-defined hypoechoic area in the region may represent focal fluid/abscess collection. Recommend clinical correlation. As clinically deemed necessary consider further evaluation with contrast-enhanced CT or MRI. <VITALIY Wan - Last Filed: 07/09/21 16:32> CT RLE: Attestation: I personally reviewed and interpreted this imaging study as follows: <VITALIY Wan - Last Filed: 07/09/21 16:32> Radiologist's impression: CT/CT femur RT w con IMPRESSION: Findings in the medial subcutaneous tissues of the upper/mid thigh, including an area of more confluent changes. No peripherally enhancing organized fluid collection identified by CT . Differential consideration include infectious, inflammatory etiologies. Recommend clinical correlation, management and follow-up. Follow-up ultrasound or cross-sectional imaging could be considered if there is clinical concern for a worsening symptoms/developing abscess. <VITALIY Wan Last Filed: 07/09/21 16:32> Discharge Plan Discharge Clinical Impression: Abscess, Cellulitis <VITALIY Wan - Last Filed: 07/09/21 16:32> Patient Disposition: Home, Self-Care <VITALIY Wan Last Filed: 07/09/21 16:32> Instructions: Abscess (ED), Abscess Follow-up (ED) <VITALIY Wan - Last Filed: 07/09/21 16:32> Additional Instructions: Take your medications as prescribed. Finish your antibiotics that were prescribed to you. Apply moist heat to the area, or apply a heating pack to the area for up to 15 minutes. Do this a few times a day. Follow-up with your primary care provider this week. I have given you general surgerys contact info, only contact them if no improvement in 2 weeks. Return to the emergency department with new or worsening symptoms. In case of emergency call 911 I attest that I have reviewed patients [employer], and at the time prescribing the patient a controlled substance is appropriate based off of patients diagnosis and treatment plan. <VITALIY Wan Last Filed: 07/09/21 16:32> Prescriptions: New oxycodone 5 mg tablet 5 mg PO BID PRN (Reason: pain) Qty: 6 RF: 0 No Action hydrochlorothiazide 25 mg tablet 25 mg PO DAILY Qty: 90 RF: 8 amlodipine 5 mg tablet 5 mg PO DAILY Qty: 90 RF: 8 cephalexin 250 mg capsule 250 mg PO QID 7 Days Qty: 28 RF: 0 doxycycline hyclate 100 mg tablet 100 mg PO Q12H 7 Days Qty: 14 RF: 0 morphine 15 mg tablet 15 mg PO Q4-6H PRN (Reason: pain) Qty: 10 RF: 0 levonorgestrel-ethinyl estrad 0.15-0.03 mg tablet PO RF: 0 cephalexin 250 mg capsule 250 mg PO Q6H Qty: 20 RF: 0 <VITALIY Wan - Last Filed: 07/09/21 16:32> Referrals: Patrick Mckeon MD [Primary Care Provider] - 2 days Rojelio Marroquin MD [Physician] - 2 weeks <VITALIY Wan - Last Filed: 07/09/21 16:32> Stand Alone Forms: Work/School Release <VITALIY Wan - Last Filed: 07/09/21 16:32> Interventions: ED Discharge Assessment Last Done: 07/09/21 17:08 <VITALIY Wan - Last Filed: 07/09/21 16:32> Discharge Date/Time: 07/09/21 17:09 <VITALIY Wan - Last Filed: 07/09/21 16:32>
[2021-07-09 13:16] LABS: MANUAL DIFF FLAG NO
[2021-07-09 13:20] LABS: Basophils Percent Auto 0.3 % (0-2); Eosinophils Absolute Auto 0.2 X10*3/uL (0.0-0.4); Eosinophils Percent Auto 2.1 % (0-4); Hematocrit 40.9 % (37.0-47.0); Hemoglobin 13.9 g/dl (12.0-16.0); Imm Gran Abs Auto 0.03 X10*3/uL (0.00-0.03); Imm Gran Pct Auto 0.3 % (0.0-0.4); Lymphocytes Absolute Auto 3.3 X10*3/uL (1.2-4.9); Lymphocytes Percent Auto 28.3 % (20-40); Mean Corpuscular Hemoglobin 29.9 pg (27.0-33.0); Mean Platelet Volume 8.5 fL (9.4-12.3); Monocytes Absolute Auto 0.7 X10*3/uL (0.1-1.2); Monocytes Percent Auto 5.6 % (2-11); Neutrophils Absolute Auto 7.4 x10*3/uL (2.0-8.3); Neutrophils Percent Auto 63.4 % (45-73); Platelet Count 416 X10*3/uL (160-400); Red Blood Count 4.65 X10*6/uL (4.20-5.50); Red Cell Distribution Width 11.6 % (11.0-16.0); White Blood Count 11.7 X10*3/uL (4.8-10.8)
[2021-07-09] MEDS: Ibuprofen 600 MG TABLET PO (13:35)
[2021-07-09] MEDS: LORazepam 2 MG/ML VIAL 0.5 MG IVPUSH (13:35)
[2021-07-09 13:39] LABS: COVID-19 Test Negative (Negative); IDNOW Serial# 9DD0AD1C
[2021-07-09] MEDS: Piperacillin Sodium/Tazobactam 3.375 GM in 0.9 % Sodium Chloride 50 ML IV (13:40)
[2021-07-09 13:41] LABS: Lactic Acid 0.6 mmol/L (0.5-2.0)
[2021-07-09] MEDS: 0.9 % Sodium Chloride 1,000 ML 999 ML IV (13:41)
[2021-07-09 13:49] LABS: Alanine Aminotransferase 14 U/L (0-31); Albumin Level 3.8 g/dL (3.5-5.0); Alkaline Phosphatase 64 U/L (39-117); Anion Gap 13 (12-20); Aspartate Amino Transferase 13 U/L (5-31); Bilirubin Total 0.4 mg/dL (0.0-1.0); Blood Urea Nitrogen 10 mg/dL (9-16); Calcium 9.1 mg/dL (8.4-10.2); Carbon Dioxide 25 mmol/L (22-29); Chloride 104 mmol/L (96-108); Creatinine Clr Calc Pharmacy 105.2; Estimated Glomerular Filt Rate > 60; Glucose Random 91 mg/dL (60-115); Magnesium 1.9 mg/dL (1.6-2.6); Potassium 4.2 mmol/L (3.3-5.1); Sodium 138 mmol/L (135-145); Total Protein 6.8 g/dL (6.5-8.0)
[2021-07-09 14:01] LABS: UPreg QC Valid YES; Urine Pregnancy NEGATIVE (NEGATIVE)
[2021-07-09] MEDS: vancomycin HCL 1,250 MG in 0.9 % Sodium Chloride 250 ML 166.67 MG IV (14:17)
[2021-07-09 14:39] VITALS: BP 98/60; PULSE 80; RESP 18; TEMP 36.7; O2SAT 99
[2021-07-09] MEDS: iohexoL 350 MG/ML 100 ML INFUS..BTL 85 ML IV (15:07)
== END 2021-07-09 17:09 | disposition home or self-care (01) ==
PROVIDERS: Physician Assistant; Emergency Provider Emergency Medicine Emergency Medical Services; PCP Internal Medicine
DX: L02.415 Cutaneous abscess of right lower limb (principal); L03.115 Cellulitis of right lower limb; M79.651 Pain in right thigh; Z20.822 Contact with and (suspected) exposure to COVID-19; R68.83 Chills (without fever); I10 Essential (primary) hypertension; E66.01 Morbid (severe) obesity due to excess calories; F17.200 Nicotine dependence, unspecified, uncomplicated
CPT/HCPCS: 36415; 73701; 80053; 81025; 82550; 83605; 83735; 85025; 87040; 87635; 93971; 96365; 96367; 96375; 99284; J2060; J2543; J3370; Q9967

== ENCOUNTER → 2021-07-12 15:47 | Outpatient (BNVA) | payer OTHER, SELFPAY | PROVIDERS: PCP Internal Medicine; Referring Provider Internal Medicine; Visit Provider Surgery | DX: L02.415 Cutaneous abscess of right lower limb (principal) | CPT/HCPCS: 10060; 99202 ==

== ENCOUNTER 2021-07-13 08:21 | Day surgery (SDC) | payer OTHER, SELFPAY ==
--- NOTE | 2021-07-13 08:37 | P.CONAN_ITS ---
[facility] Active Problems Active Problems: All Active Problems (Updated 07/12/21 @ 16:21 by Mike engel MD) Abscess of right thigh (Acute) Morbid obesity (Acute) Abscess of skin (Acute) STD exposure (Acute) Depression (Acute) Past Medical History Medical History (Updated 07/12/21 @ 16:21 by Mike Wolf MD) Abscess of right thigh Depression HTN (hypertension) Morbid obesity Family History Family History Mother Mental health disorder Father No problems noted. Family history of problems with anesthesia: No Surgical History Surgical History No pertinent past surgical history History of Problems with Anesthesia: No Social History Social History Housing: Apartment Patient Tobacco Use Status: Current everyday Tobacco user Tobacco use type: Cigarette Cigarettes Per Day: 6 e-Cigarette/Vaping Use: Never Used Second Hand Smoke Exposure: No Advance Directives: No Advance Directives Information Provided: Yes service: No Current occupational status: employed Meds Allergies Allergy/AdvReac Type Severity Reaction Status Date / Time No Known Allergies Allergy Verified 07/13/21 08:36 [No Known Allergies*] Active Medications: Current Medications Cefazolin Sodium/Dextrose (Ancef) 2 gm in 50 mls @ 100 mls/hr IV PREOP ONE Stop: 07/13/21 08:54 Lactated Ringer's (Lr) 1,000 mls @ 50 mls/hr IVCONT .Q20H MARC Home Medications Medication Instructions Recorded Confirmed Last Taken Type levonorgestrel 0.15 mg-ethinyl tab PO 06/21/20 07/12/21 Unknown History estradiol 0.03 mg tablet Exam Exam Date and Time: July 13, 2021 0837 Airway Mallampati Class: II TM Dist: >3cm Neck ROM: Full Heart: rrr Lungs: cta Assessment and Plan Assessment Anesthesia Assessment: Anesthesia Plan Discussed and Chart Reviewed Final Anesthetic Review Family History of Problems with Anesthesia: No History of Problems with Anesthesia: No NPO: Yes ASA Class: II Final Preanesthetic Review: No Changes in Pt Med Stat, Meds/Allgs Chart Reviewed and Consent Obtained/Reviewed Patient Risk: Intermediate Procedure Risk: Intermediate Anesthetic Plan Anesthetic Plan: MAC: Disposition: Standard PACU
[2021-07-13 08:43] LABS: UPreg QC Valid YES; Urine Pregnancy NEGATIVE (NEGATIVE)
[2021-07-13 08:49] VITALS: BMI 40.2
[2021-07-13 08:51] VITALS: BP 113/82; PULSE 99; RESP 16; TEMP 36.8; O2SAT 97
[2021-07-13] MEDS: Lactated Ringers 1,000 ML 50 ML IVCONT (09:23)
--- NOTE | 2021-07-13 11:07 | W.PM.OPN ---
Operative Note Operative Note Date of Service: 07/13/21 Narrative: Preop diagnosis: Right thigh abscess Postop diagnosis: Right abscess, deep subcutaneous in location Procedure: Incision and drainage of a deep subcutaneous right thigh abscess under anesthesia Surgeon: Mike Wolf MD Software Administrator: VITALIY Gonzalez Patient is the 31-year-old female who had seen last night in the office because of a one-week history of pain, swelling tenderness on right type this appeared to be consistent with an abscess. There was note of a wide induration, about almost 9 cm in size. She had been on oral antibiotics From the ER without any significant improvement. I attempted to do an I and D under local anesthesia yesterday in the office but she was unable to tolerate pain med I therefore scheduled her for I and D under anesthesia today. She was brought to the operating room. She was placed supine position with the right thigh abducted to expose the medial aspect of the thigh with where the abscess was. A surgical time-out was done. The right thigh was prepped and draped in the usual sterile fashion. The patient had received cefazolin 2 g IV prophylactically . I infiltrated the area of the thigh surrounding the induration using lidocaine 1% generously. There was already a small cruciate incision from yesterday. I extended this with the blade 15. I then proceeded to incise through the subcutaneous tissue. I did blunt dissection using fine hemostats through the incision to the deep subcutaneous layer until was able to enter a large abscess cavity. Large amounts of thick yellowish pus was drained. Cultures of this was taken. I probed the abscess cavity with the finger to break down any possible loculations. I irrigated the abscess cavity. Again this was noted to be deep in the subcutaneous layer . I then used 1 corner of a gauze awake through the incision into the cavity. I covered the entire incision with 4 x 4 gauze pads as dressings. I infiltrated the area Marcaine 0.5% for postop for postop analgesia. The procedure was then completed . The patient tolerated the procedure well. Estimated blood loss about 10 cc. Initial and final counts of sponges and instruments were correct. There were no postop complications. The patient was then transferred to the recovery room with stable vital signs.
[2021-07-13 11:10] VITALS: BP 97/58; PULSE 89; RESP 16; TEMP 36.1; O2SAT 99
[2021-07-13 11:15] VITALS: BP 113/66; PULSE 89; RESP 16; O2SAT 94
[2021-07-13 11:30] VITALS: BP 118/72; PULSE 81; RESP 16; O2SAT 96
[2021-07-13 11:45] VITALS: BP 117/74; PULSE 80; RESP 16; O2SAT 96
[2021-07-13 12:00] VITALS: BP 121/73; PULSE 81; RESP 16; TEMP 36.1; O2SAT 97
[2021-07-13] MEDS: oxyCODONE HCl Immed Release 5 MG TABLET PO (12:09)
== END 2021-07-13 12:33 | disposition home or self-care (01) ==
PROVIDERS: PCP Internal Medicine; Visit Provider Surgery
PROC: (CPT 27301; principal; 2021-07-13 09:50)
DX: L02.415 Cutaneous abscess of right lower limb (principal); F32.9 Major depressive disorder, single episode, unspecified; I10 Essential (primary) hypertension; E66.01 Morbid (severe) obesity due to excess calories; Z68.41 Body mass index [BMI] 40.0-44.9, adult; F17.210 Nicotine dependence, cigarettes, uncomplicated
CPT/HCPCS: 27301; 81025; 87071; 87077; 87186; 87205; J0690; J1170; J1885; J2250; J3010

== ENCOUNTER → 2021-07-21 14:34 | Outpatient (BNVA) | payer OTHER, SELFPAY | PROVIDERS: PCP Internal Medicine; Referring Provider Internal Medicine; Visit Provider Surgery | DX: Z48.817 Encounter for surgical aftercare following surgery on the skin and subcutaneous tissue (principal); Z87.2 Personal history of diseases of the skin and subcutaneous tissue | CPT/HCPCS: 99212 ==

== ENCOUNTER 2021-11-01 08:18 | Outpatient (REF) | payer OTHER, SELFPAY ==
[2021-11-01 09:38] LABS: Cholesterol 188 mg/dL; HDL Cholesterol 69 mg/dL; LDL Cholesterol Calculated 97 mg/dl; Triglycerides 111 mg/dL
[2021-11-01 09:59] LABS: TSH reflex Free T4 1.87 uIU/mL (0.32-4.0)
== END 2021-11-01 08:19 | disposition home or self-care (01) ==
LOC: HO.LAB 08:18
PROVIDERS: PCP Nurse Practitioner Family; Visit Provider Nurse Practitioner Family
DX: E78.00 Pure hypercholesterolemia, unspecified (principal); F32.9 Major depressive disorder, single episode, unspecified; Z76.89 Persons encountering health services in other specified circumstances
CPT/HCPCS: 36415; 80061; 84443

== ENCOUNTER 2021-11-24 12:15 | Outpatient (REF) | payer OTHER, SELFPAY ==
[2021-11-25 08:13] LABS: HIV AB/AG Nonreactive (Nonreactive); HIV Num 1 0.06 S/CO (0.00-0.99)
[2021-11-25 08:33] LABS: ~HepC Num1 0.18 S/CO (0.00-0.79); ~Hepatitis C Antibody Nonreactive (Nonreactive)
== END 2021-11-24 12:16 | disposition home or self-care (01) ==
LOC: HO.LAB 12:15
PROVIDERS: PCP Nurse Practitioner Family; Visit Provider Nurse Practitioner Family
DX: Z11.4 Encounter for screening for human immunodeficiency virus [HIV] (principal); Z11.3 Encounter for screening for infections with a predominantly sexual mode of transmission
CPT/HCPCS: 36415; 86803; 87389

== ENCOUNTER 2021-12-05 13:39 | Outpatient (REF) | payer OTHER, SELFPAY ==
[2021-12-05 16:28] LABS: CT PCR NOT DETECTED (Not Detect.); NG PCR NOT DETECTED (Not Detect.)
== END 2021-12-05 13:40 | disposition home or self-care (01) ==
LOC: HO.LAB 13:39
PROVIDERS: PCP Nurse Practitioner Family; Visit Provider Nurse Practitioner Family
DX: Z11.3 Encounter for screening for infections with a predominantly sexual mode of transmission (principal)
CPT/HCPCS: 87491; 87591

== ENCOUNTER 2022-01-09 14:05 | Outpatient (REF) | payer OTHER, SELFPAY ==
[2022-01-10 07:18] LABS: CT PCR NOT DETECTED (Not Detect.); NG PCR NOT DETECTED (Not Detect.)
[2022-01-12 08:21] LABS: HPV mRNA E6/E7 rflx Not Detected (Not Detected)
== END 2022-01-09 14:06 | disposition home or self-care (01) ==
LOC: HO.LAB 14:05
PROVIDERS: Visit Provider Advanced Practice Midwife
DX: Z01.411 Encounter for gynecological examination (general) (routine) with abnormal findings (principal); Z11.51 Encounter for screening for human papillomavirus (HPV); Z20.2 Contact with and (suspected) exposure to infections with a predominantly sexual mode of transmission
CPT/HCPCS: 87491; 87591; 87624; 88142

== ENCOUNTER 2022-04-03 14:17 | Outpatient (REF) | payer OTHER, SELFPAY ==
--- NOTE | ~2022-04-03 | US_ITS ---
EXAMINATION: US SOFT TISSUE HEAD/NECK CLINICAL INFORMATION: Localized swelling, mass and lump, head. COMPARISON: None TECHNIQUE: Linear transducer grayscale and color Doppler examination of the frontal area of scalp. FINDINGS: Curvilinear solid well-defined hypoechoic nodule with no evidence of vascularity in the region of palpable lump measuring 1.8 x 0.2 x 1.7 cm. Nonspecific though may represent a lipoma. US/US soft tiss head and/or neck IMPRESSION: Curvilinear solid well-defined hypoechoic nodule with no evidence of vascularity in the region of palpable lump measuring 1.8 x 0.2 x 1.7 cm. Nonspecific though may represent a lipoma. If clinically warranted can consider further evaluation with MRI.
== END 2022-04-03 14:18 | disposition home or self-care (01) ==
LOC: HO.US 14:17
PROVIDERS: Visit Provider Nurse Practitioner Family
DX: R22.0 Localized swelling, mass and lump, head (principal)
CPT/HCPCS: 76536

== ENCOUNTER → 2022-04-11 14:14 | Outpatient (BNVA) | payer OTHER, SELFPAY | PROVIDERS: PCP Nurse Practitioner Family; Visit Provider Advanced Practice Midwife | DX: Z30.41 Encounter for surveillance of contraceptive pills (principal) | CPT/HCPCS: 99212 ==

== ENCOUNTER 2022-04-12 14:00 | Outpatient (RCR) | payer OTHER, SELFPAY | END 2022-04-17 18:18 | disposition home or self-care (01) | LOC: HO.PT 14:00 | PROVIDERS: Visit Provider Nurse Practitioner Family | DX: M79.18 Myalgia, other site (principal) | CPT/HCPCS: 97110; 97140; 97161 ==

== ENCOUNTER 2022-05-23 14:55 | Outpatient (REF) | payer OTHER, SELFPAY ==
[2022-05-24 07:19] LABS: Syphilis Screen Nonreactive (Nonreactive)
[2022-05-24 08:06] LABS: HBS Num1 171.18 mIU/mL (0-7.99); HBc Num1 0.06 S/CO (0.00-0.79); HBsAGNum1 0.19 S/CO (0.00-0.99); HIV AB/AG Nonreactive (Nonreactive); HIV Num 1 0.12 S/CO (0.00-0.99); Hepatitis B Core Antibody Nonreactive (Nonreactive); Hepatitis B Surface Antigen Negative (Negative); ~HepC Num1 0.23 S/CO (0.00-0.79); ~Hepatitis B Surface Antibody REACTIVE (Nonreactive); ~Hepatitis C Antibody Nonreactive (Nonreactive)
== END 2022-05-23 14:56 | disposition home or self-care (01) ==
LOC: HO.LAB 14:55
PROVIDERS: PCP Nurse Practitioner Family; Visit Provider Nurse Practitioner Family
DX: Z11.3 Encounter for screening for infections with a predominantly sexual mode of transmission (principal)
CPT/HCPCS: 36415; 86704; 86706; 86780; 86803; 87340; 87389

== ENCOUNTER 2022-05-26 14:06 | Outpatient (REF) | payer OTHER, SELFPAY ==
[2022-05-26 17:18] LABS: CT PCR NOT DETECTED (Not Detect.); NG PCR NOT DETECTED (Not Detect.)
[2022-05-29 17:12] LABS: Herpes Simplex Type 1 IgG <0.90 index
[2022-06-02 21:28] LABS: HSV 1 IgM IFA Negative (Negative); HSV 2 IgM IFA Negative (Negative)
== END 2022-05-26 14:07 | disposition home or self-care (01) ==
LOC: HO.LAB 14:06
PROVIDERS: PCP Nurse Practitioner Family; Visit Provider Nurse Practitioner Family
DX: Z11.4 Encounter for screening for human immunodeficiency virus [HIV] (principal); Z11.3 Encounter for screening for infections with a predominantly sexual mode of transmission
CPT/HCPCS: 86695; 86696; 87491; 87591

== ENCOUNTER 2022-08-03 12:00 | Outpatient (RCR) | payer OTHER, SELFPAY ==
--- NOTE | 2022-07-20 12:57 | MHC.PT.EP ---
[facility] [place] Office [place] Office [place] Office [address] Hakeem Bryson [address] [phone] F: [phone] F: [phone] F: [phone] F: [phone] Physical Therapy Plan of Care Date of Evaluation: Date of Surgery: N/A Diagnosis: R shoulder pain (RC) Assessment: pt is a 32 y/o male presenting to physical therapy w/ referring diagnosis of pain in R shoulder. pt's signs and symptoms consistent w/ rotator cuff strain/spasm. Impairments include pain, decreased range of motion, decreased strength, impaired functional mobility, impaired postural awareness, and altered ambulation mechanics. pt is a good candidate for skilled PT due to age, potential remediation of impairments, typical disease/condition progression and prognosis, comorbidities, and motivation. pt would benefit from skilled PT intervention to provide a tailored strengthening and stretching exercise program, functional training, gait training, postural re-training, neuromuscular re-education, modalities as needed for pain, equipment safety demonstration. Frequency and Duration: The patient will be seen 1x/wk for 3 wks Short Term Goals: pt will be I w/ HEP to promote self-management of condition. pt will report <1/10 R shoulder blade pain w/ carrying 15# object in R hand to promote full return to work. Retirement Goals: Treatment Plan: Modalities to reduce pain, spasms and effusion. Manual therapy to restore motion and function. Therapeutic exercise to improve strength and flexibility. Neuromuscular re-education for posture and balance. Therapeutic activities to return to functional activities of daily living. Electronically signed by: Toshai Herman PT, DPT Please sign and return to therapist. Thank you for your referral.
--- NOTE | 2022-08-29 10:49 | MHC.PT.DC ---
[facility] [place] Office [place] Office [place] Office [address] Hakeem Bryson [address] [phone] F: [phone] F: [phone] F: [phone] F: [phone] Physical Therapy Discharge Report Diagnosis: R shoulder pain (RC) Date of Surgery: N/A Date of Evaluation: 07/20/22 Date of Discharge: 08/29/22 Treatments to Date: 2 Cancellations to Date: 2 No Shows to Date: 0 Discharge Status: Visit Non-compliance Discharge Summary: The patient cancelled her last two appointments and has not called to reschedule them in the past two weeks. She is being discharged from this plan of care at this time. She presents with pain similar to the previous PT plan of care she attended back in March 2022. When she is compliant with her home exercise program her pain is minimal to none. If her pain should return the recommendation is to try her home exercise program first and if the pain is not improving a referral to PT may be made should she choose to do so. She is discharged from this PT plan of care at this time. Electronically signed by: Toshia Herman PT, DPT Please sign and return to therapist. Thank you for your referral.
== END 2022-08-29 10:49 | disposition home or self-care (01) ==
LOC: HO.PT 12:00
PROVIDERS: Visit Provider Nurse Practitioner Family
DX: M25.511 Pain in right shoulder (principal)
CPT/HCPCS: 97110; 97140; 97161

== ENCOUNTER 2022-11-07 06:01 | Outpatient (REF) | payer OTHER, SELFPAY ==
[2022-11-07 06:09] LABS: MANUAL DIFF FLAG NO
[2022-11-07 07:36] LABS: Basophils Absolute Auto 0.1 X10*3/uL (0.0-0.2); Basophils Percent Auto 0.8 % (0-2); Eosinophils Absolute Auto 0.6 X10*3/uL (0.0-0.4); Eosinophils Percent Auto 5.2 % (0-4); Hematocrit 47.2 % (37.0-47.0); Hemoglobin 15.9 g/dl (12.0-16.0); Imm Gran Abs Auto 0.02 X10*3/uL (0.00-0.03); Imm Gran Pct Auto 0.2 % (0.0-0.4); Lymphocytes Absolute Auto 4.2 X10*3/uL (1.2-4.9); Lymphocytes Percent Auto 39.1 % (20-40); Mean Corpuscular HGB Conc 33.7 g/dl (31.0-35.0); Mean Corpuscular Hemoglobin 29.9 pg (27.0-33.0); Mean Corpuscular Volume 88.7 fL (80.0-98.0); Mean Platelet Volume 8.8 fL (9.4-12.3); Monocytes Absolute Auto 0.7 X10*3/uL (0.1-1.2); Monocytes Percent Auto 6.3 % (2-11); Neutrophils Absolute Auto 5.1 x10*3/uL (2.0-8.3); Neutrophils Percent Auto 48.4 % (45-73); Platelet Count 464 X10*3/uL (160-400); Red Blood Count 5.32 X10*6/uL (4.20-5.50); White Blood Count 10.6 X10*3/uL (4.8-10.8)
[2022-11-07 08:14] LABS: Alanine Aminotransferase 23 U/L (0-31); Albumin Level 4.2 g/dL (3.5-5.0); Alkaline Phosphatase 94 U/L (39-117); Anion Gap 15 (12-20); Aspartate Amino Transferase 19 U/L (5-31); Bilirubin Total 0.5 mg/dL (0.0-1.0); Blood Urea Nitrogen 23 mg/dL (9-16); Calcium 9.2 mg/dL (8.4-10.2); Carbon Dioxide 26 mmol/L (22-29); Chloride 105 mmol/L (96-108); Cholesterol 152 mg/dL; Estimated Glomerular Filt Rate > 60; Glucose Fasting 95 mg/dL (60-99); HDL Cholesterol 53 mg/dL; LDL Cholesterol Calculated 84 mg/dl; Potassium 3.9 mmol/L (3.3-5.1); Sodium 142 mmol/L (135-145); Total Protein 6.9 g/dL (6.5-8.0); Triglycerides 79 mg/dL
[2022-11-07 08:33] LABS: TSH reflex Free T4 2.07 uIU/mL (0.32-4.0); Vitamin D 25-OH Total 22.4 ng/mL (>30)
== END 2022-11-07 06:02 | disposition home or self-care (01) ==
LOC: HO.LAB 06:01
PROVIDERS: PCP Nurse Practitioner Family; Visit Provider Nurse Practitioner Family
DX: F32.A Depression, unspecified (principal); I10 Essential (primary) hypertension
CPT/HCPCS: 36415; 80053; 80061; 82306; 84443; 85025

== ENCOUNTER → 2022-12-11 14:37 | Outpatient (BNVA) | payer OTHER, SELFPAY | PROVIDERS: PCP Nurse Practitioner Family; Referring Provider Nurse Practitioner Family; Visit Provider Surgery | DX: D17.0 Benign lipomatous neoplasm of skin and subcutaneous tissue of head, face and neck (principal) | CPT/HCPCS: 99212 ==

== ENCOUNTER 2023-01-03 12:52 | Outpatient (REF) | payer OTHER, SELFPAY ==
[2023-01-03 12:55] VITALS: BMI 40.7
[2023-01-03 12:56] VITALS: BP 175/108; PULSE 89; RESP 16; TEMP 36.8
[2023-01-03 13:10] VITALS: BP 100/58; PULSE 58; RESP 12; O2SAT 92
[2023-01-03 13:26] VITALS: BP 138/85; PULSE 86; RESP 16; O2SAT 100
--- NOTE | 2023-01-04 13:09 | P.OP_ITS ---
Operative Note Operative Note Date of Service: 01/03/23 Narrative: Preop diagnosis: Scalp lipoma, frontal area Postop diagnosis: Scalp lipoma , frontal area Procedure: Excision of scalp lipoma under local anesthesia Surgeon: Mike Wolf MD The patient is a 32-year-old female with note of a small, well-defined, lipomatous mass on the frontal area of the scalp measuring about 8 mm in diameter. She understood the technique of excision under local anesthesia. She was aware of the risks, benefits, and alternatives. She was brought to the minor procedure room placed in reclining position. The area of the lipomas prepped and draped. Lidocaine 1% was used for local an esthesia. I made a short incision on the scalp overlying this lipoma using blade 15. This was carried down with sharp dissection through the full-thickness of the skin and subcutaneous layer until the lipomatous tissue was visualized. I sharply dissected the lipomatous tissue off of the rest of the surrounding layers until this was delivered. This was sent as a specimen. I irrigated the area of excision. I closed the incision with full-thickness nylon 3-0 interrupted sutures. Bacitracin was applied. The procedure was completed The patient tolerated procedure well. There were no immediate complications. Estimated blood loss was about less than 10 cc. She was given wound care instructions.
== END 2023-01-03 12:53 | disposition home or self-care (01) ==
LOC: HO.SSS 12:52
PROVIDERS: PCP Nurse Practitioner Family; Visit Provider Surgery
PROC: (CPT 11422; principal; 2023-01-03 13:00)
DX: D17.0 Benign lipomatous neoplasm of skin and subcutaneous tissue of head, face and neck (principal)
CPT/HCPCS: 11422; 88304

== ENCOUNTER → 2023-01-17 14:48 | Outpatient (BNVA) | payer OTHER, SELFPAY | PROVIDERS: PCP Nurse Practitioner Family; Visit Provider Surgery | DX: Z09 Encounter for follow-up examination after completed treatment for conditions other than malignant neoplasm (principal); Z86.018 Personal history of other benign neoplasm | CPT/HCPCS: 99212 ==

== ENCOUNTER 2023-02-06 12:37 | Outpatient (REF) | payer OTHER, SELFPAY ==
[2023-02-06 14:31] LABS: Hematocrit 45.5 % (37.0-47.0); Hemoglobin 15.5 g/dl (12.0-16.0); Mean Corpuscular HGB Conc 34.1 g/dl (31.0-35.0); Mean Platelet Volume 8.9 fL (9.4-12.3); Platelet Count 461 X10*3/uL (160-400); Red Blood Count 5.17 X10*6/uL (4.20-5.50); Red Cell Distribution Width 11.9 % (11.0-16.0); White Blood Count 12.8 X10*3/uL (4.8-10.8)
[2023-02-06 15:47] LABS: Vitamin D 25-OH Total 55.2 ng/mL (>30)
== END 2023-02-06 12:38 | disposition home or self-care (01) ==
LOC: HO.LAB 12:37
PROVIDERS: PCP Nurse Practitioner Family; Visit Provider Nurse Practitioner Family
DX: R79.89 Other specified abnormal findings of blood chemistry (principal)
CPT/HCPCS: 36415; 82306; 85027

== ENCOUNTER 2023-02-07 18:33 | Emergency (ER) | payer OTHER, SELFPAY ==
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
[2023-02-07 18:34] VITALS: BP 170/90; PULSE 60; RESP 18; TEMP 36.3; O2SAT 98; BMI 44.3
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
[2023-02-07 20:16] VITALS: BP 136/96; PULSE 98; RESP 16; O2SAT 96
== END 2023-02-07 20:18 | disposition home or self-care (01) ==
PROVIDERS: Emergency Provider Emergency Medicine Emergency Medical Services; PCP Nurse Practitioner Family
DX: Z04.1 Encounter for examination and observation following transport accident (principal); M25.512 Pain in left shoulder; I10 Essential (primary) hypertension; F17.210 Nicotine dependence, cigarettes, uncomplicated
CPT/HCPCS: 73030; 99283

== ENCOUNTER 2023-03-01 13:14 | Outpatient (REF) | payer OTHER, SELFPAY ==
--- NOTE | ~2023-03-01 | XR_ITS ---
EXAMINATION: XR SCAPULA, RIGHT CLINICAL INFORMATION: Right scapular pain. COMPARISON: None available. TECHNIQUE: AP and scapular Y views of the right scapula. FINDINGS: The bones and soft tissues are normal. No scapular fracture. Glenohumeral and acromioclavicular alignment is normal. The visualized chest and ribs are unremarkable. XR/XR scapula RT IMPRESSION: Normal right scapula.
== END 2023-03-01 13:15 | disposition home or self-care (01) ==
LOC: HO.XRAY 13:14
PROVIDERS: PCP Nurse Practitioner Family; Visit Provider Nurse Practitioner Family
DX: M25.511 Pain in right shoulder (principal)
CPT/HCPCS: 73010

== ENCOUNTER → 2023-03-14 14:52 | Outpatient (BNV) | payer OTHER, SELFPAY | PROVIDERS: PCP Nurse Practitioner Family; Referring Provider Nurse Practitioner Family; Visit Provider Internal Medicine | DX: D72.829 Elevated white blood cell count, unspecified (principal) | CPT/HCPCS: 99203; 99213 ==

== ENCOUNTER 2023-03-21 08:08 | Outpatient (AMB) | payer OTHER, SELFPAY ==
--- NOTE | 2023-03-21 08:09 | MHC.OFFVIS ---
Intake Vital Signs 03/21/23 08:10 Height 5 ft 3 in Weight 252 lb BMI 44.6 BP 132/100 H Intake Visit Reasons: Annual Intake Note: The patient agreed to use of a medical microbiologist during this encounter. Scribed for MICHAEL Kelley by Maggie Anderson medical microbiologist, on 03/21/2023 at 8:33 am EST. Director Of Religious Activities: Director Of Religious Activities Present (Emily) Allergies No Known Allergies [No Known Allergies*] Allergy (Verified 03/21/23 08:10) Is last menstrual period known: Yes Last menstrual period: 02/24/23 HPI HPI Comments History of Present Illness Details She is a premenopausal woman presenting for annual exam with complaints of weight gain. Consulted with PCP regarding weight gain and referred to with utilization management manager. She admits to eating healthy and tries to stay active with exercise. Currently sexually active. Uses Chiquita for control and is doing well, other than occasional cycle bleeding being off. She has done home tests and denies missing her pills. She is not interested in future pregnancies. Denies vaginal itching and irritation. STD screening offered; she accepts. STD blood work offered, she declines. Denies family hx of breast and ovarian cancer. Last pap smear 01/09/22. She denies any contraindications to control such as: migraines with aura, history of DVT or pulmonary emboli, liver disease, thrombolic disorders, Lupus, or +PAO. Admits HTN and to smoking; not ready to quit. Reviewed use, side effects and warnings including ACHES. [facility] Medical History Abscess of right thigh Anxiety and depression Body mass index (BMI) of 39.0-39.9 in adult Depression Elevated platelet count HTN (hypertension) Lipoma of scalp Morbid obesity Surgical History History of incision and drainage (~06/2021) Status post excision of lipoma (~01/04/23) Family History Mother Mental health disorder Hypertension Father Hypertension Paternal Grandfather Colon cancer, Onset Age: 64 Social History Household Members: None Housing: Apartment Alcohol intake: current Alcohol intake frequency: a few times a month Alcohol type: wine and hard liquor Patient Tobacco Use Status: Current everyday Tobacco user Tobacco use type: Cigarette Years Smoked: 15 e-Cigarette/Vaping Use: Never Used Second Hand Smoke Exposure: Yes service: No Current occupational status: employed 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/[employer] Current occupational exposures/hazards: No Sexual orientation: Straight/Heterosexual Gender identity: Female Cognitive needs: No Hearing needs: No Vision needs: Yes (Contact lenses.) Female Reproductive History Menstrual Age of Menarche: 10 Duration of menses: 3-5 days Date of last menstrual period: 02/24/23 control method: pills Total pregnancies: 1 Number of Living Children: 0 Ab induced: 1 Date of last pap smear: 01/09/22 (neg pap and hpv) Physical Exam Vital Signs: Last Vital Signs BP 132/100 H 03/21/23 08:10 BMI result Body Mass Index 44.6 Const General: cooperative, healthy appearing, no acute distress, well developed and alert Orientation/consciousness: patient oriented x3 HEENT Head: Yes normal to inspection Eyes General: appearance normal, both eyes and all related structures Neck Neck: Yes normal visual inspection Thyroid: Thyroid normal Chest Chest palpation & inspection: normal inspection of the chest Breast/axilla inspection: normal inspection of the breasts (no puckering, dimpling, peau de orange, retraction, discharge, masses) Breast/axilla palpation: normal palpation of the breasts Resp Effort & Inspection: normal respiratory effort GI Inspection: Yes normal to inspection Palpation (GI): Soft to palpation (to palpation) Rectal Exam - Female: deferred General: Yes bladder normal to inspection External Female Exam: normal external appearance and normal appearance of the urethra Speculum Exam - Vagina: normal appearance of the vagina, normal palpation and normal vaginal discharge Speculum Exam - Cervix: normal appearance of the cervix and normal palpation Bimanual exam- vagina & uterus: normal palpation and normal palpation Bimanual Exam- Adnexa, other: normal adnexae and no masses Skin General skin exam: no rashes or lesions noted Neuro General: patient oriented x3 Cognition (Neuro): normal cognition Extrem General: Yes normal to inspection Psych Attitude: cooperative Thought process: Normal thought process present Assessment & Plan Assessment & Plan (1) Encounter for well woman exam: Code(s): Z01.419 - Encounter for gynecological examination (general) (routine) without abnormal findings Plan: Discussed: Current recommendations for pap smears per ASCCP guidelines Breast awareness and periodic self breast exams. Maintaining a healthy lifestyle including a well balanced diet and routine exercise. Reviewed use, side effects and warnings of different BC options incl: Kyleena and Mirena-she declines a booklet and opts to research online. She opts to continue Chiquita. Monitor her bleeding and contact the office with any concerns. She was instructed to go to ER if she develops loss of vision, severe headache that does not resolve, chest pain, difficulty breathing, abdominal pain, or severe pain or tenderness in extremity. She will call the office with any concerns. She was also counseled on smoking and risks with OCP?s. Rx for Chiquita sent to pharmacy. GC/CT panel done today. Await results and treat accordingly. Encourage to lower tobacco intake, then quit. Follow up with PCP for HTN. All of her questions and concerns were addressed to the best of my ability. RTO in one year for AG. (2) control counseling: Code(s): Z30.09 - Encounter for other general counseling and advice on contraception (3) HTN (hypertension): Code(s): I10 - Essential (primary) hypertension (4) Surveillance for control, oral contraceptives: Code(s): Z30.41 - Encounter for surveillance of contraceptive pills (5) Potential exposure to STD: Code(s): Z20.2 - Contact with and (suspected) exposure to infections with a predominantly sexual mode of transmission Orders: Orders CT NG by PCR Today Z20.2 - Contact with and (suspected) exposure to infections with a predominantly sexual mode of transmission Medications: New norethindrone (contraceptive) (Chiquita) 0.35 mg PO DAILY 90 days 90 tabs 4RF Discontinued norethindrone (contraceptive) (Chiquita) Discontinued Reason: Duplicate 0.35 mg PO DAILY PRN 28 tabs 3RF OCP Coding Level of Care Code Est Pt Prev Care 18-39y(54199) Diagnoses Encounter for well woman exam Z01.419 control counseling Z30.09 HTN (hypertension) I10 Surveillance for control, oral contraceptives Z30.41 Potential exposure to STD Z20.2
[2023-03-21 08:10] VITALS: BP 132/100; BMI 44.6
== END 2023-03-21 09:06 | disposition home or self-care (01) ==
PROVIDERS: PCP Nurse Practitioner Family; Visit Provider Advanced Practice Midwife
DX: Z01.419 Encounter for gynecological examination (general) (routine) without abnormal findings (principal); Z20.2 Contact with and (suspected) exposure to infections with a predominantly sexual mode of transmission
CPT/HCPCS: 99395

== ENCOUNTER 2023-03-21 08:08 | Outpatient (REF) | payer OTHER, SELFPAY ==
[2023-03-22 14:21] LABS: CT PCR NOT DETECTED (Not Detect.); NG PCR NOT DETECTED (Not Detect.)
== END 2023-03-21 08:09 | disposition home or self-care (01) ==
LOC: HO.LNP 08:08
PROVIDERS: PCP Nurse Practitioner Family; Visit Provider Advanced Practice Midwife
DX: Z20.2 Contact with and (suspected) exposure to infections with a predominantly sexual mode of transmission (principal)
CPT/HCPCS: 0353U

== ENCOUNTER 2023-03-22 13:27 | Outpatient (AMB) | payer OTHER, SELFPAY ==
--- NOTE | 2023-03-22 13:37 | A.OFFVIS_ITS ---
Intake Vital Signs 03/22/23 13:39 Height 5 ft 3 in Weight 249 lb 6 oz BMI 44.2 BP 140/100 H Blood Pressure Location Lt brachial Position Sitting Respiration 18 Pulse 95 Pulse Source Pulse Oximeter Pulse Oximetry (%) 97 Oxygen Delivery Method Room Air Intake Visit Reasons: LOW BACK PAIN AND RT SHOULDER PAIN Allergies No Known Allergies [No Known Allergies*] Allergy (Verified 03/22/23 13:32) HPI HPI Comments History of Present Illness Details Tori is a very pleasant 32 year old female who presents to the office today for evaluation and management of her right posterior shoulder pain. She reports waking up one day with the pain. Pain is just medial to her right scapula and is tender to palpation. She does report some radiation of the pain upwards. Pain is unchanged with movement and she is not able to reproduce the pain with any specific movement. 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 Pain today is reported as 7/10 but can get to 10/10. Physical therapy was completed several months ago without effect. She is currently taking cyclobenzaprine with minimal effect, she has tried NSAIDs without relief. She has not tried acupuncture, massage, chiropractor or injections. In terms of muscle damage condition is described as throbbing, aching, flashing, shooting, tingling, stinging, pinching, cramping, dull, sore, hurting, aching, heavy and tiring. Patient reports pain is negatively impacting her sleep. Patient denies implantable devices, pacemaker, defibrillator. [facility] Medical History Abscess of right thigh Anxiety and depression Body mass index (BMI) of 39.0-39.9 in adult Depression Elevated platelet count HTN (hypertension) Lipoma of scalp Morbid obesity Surgical History History of incision and drainage (~06/2021) Status post excision of lipoma (~01/04/23) Family History Mother Mental health disorder Hypertension Father Hypertension Paternal Grandfather Colon cancer, Onset Age: 64 Social History Household Members: None Housing: Apartment Alcohol intake: current Alcohol intake frequency: a few times a month Alcohol type: wine and hard liquor Patient Tobacco Use Status: Current everyday Tobacco user Tobacco use type: Cigarette Years Smoked: 15 e-Cigarette/Vaping Use: Never Used Second Hand Smoke Exposure: Yes service: No Current occupational status: employed 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/[employer] Current occupational exposures/hazards: No Sexual orientation: Straight/Heterosexual Gender identity: Female Cognitive needs: No Hearing needs: No Vision needs: Yes (Contact lenses.) Female Reproductive History Menstrual Age of Menarche: 10 Review of Systems Const All systems reviewed & are unremarkable except as noted in HPI and below Physical Exam Vital Signs: Last Vital Signs Pulse 95 03/22/23 13:39 Resp 18 03/22/23 13:39 BP 140/100 H 03/22/23 13:39 Pulse Ox 97 03/22/23 13:39 Oxygen Delivery Method Room Air 03/22/23 13:39 BMI result Body Mass Index 44.2 General: awake, alert, oriented. Answers questions appropriately. Fully engaged in examination. Skin: warm, dry, intact without visible rashes or lesions. HEENT: Normocephalic. Conjuntivae clear without exudate. Sclera non-icteric. Hearing intact. Cardiac: External chest normal in appearance. Respiratory: No signs of trauma. No signs of respiratory distress. No cough, audible wheezing or stridor. Abdomen: without gross distension. MS: Trigger point tenderness right middle trapezius with palpable taught band medially to scapula. Full active and passive ROM RUE without pain. Full cervical ROM Neurological: Oriented to person, place, time and situation. Thought process intact. No gait abnormalities appreciated. Psychiatric: Appropriate mood and affect. Good judgment and insight. Results Reviewed Results Reviewed: 03/06/2023 EXAMINATION: XR SCAPULA, RIGHT FINDINGS: The bones and soft tissues are normal. No scapular fracture. Glenohumeral and acromioclavicular alignment is normal. The visualized chest and ribs are unremarkable. IMPRESSION: Normal right scapula. Assessment & Plan Assessment & Plan (1) Trapezius muscle strain: Code(s): S46.819A - Strain of other muscles, fascia and tendons at shoulder and upper arm level, unspecified arm, initial encounter Plan History, physical exam and provocative testing consistent with right middle trapezius muscle strain with palpable trigger point tenderness. Patient with limited benefit from cyclobenzaprine, will trial Tizanidine 2mg po bid as needed for muscle spasm. Lidocaine patches ordered, apply to most painful area as needed for pain. on for 12 hours, off for 12 hours. Zynex tens ordered, patient provided instructions for use. Patient will follow up here in 1 month, if pain unchanged with Tens, lidocaine pathces and Tizanidine will plan for in office Right Trapezius Trigger Point Injections. All questions and concerns have been answered and patient agrees with the plan. 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
[2023-03-22 13:39] VITALS: BP 140/100; PULSE 95; RESP 18; O2SAT 97; BMI 44.2
== END 2023-03-22 13:59 | disposition home or self-care (01) ==
PROVIDERS: PCP Nurse Practitioner Family; Visit Provider Registered Nurse Emergency
DX: S46.819A Strain of other muscles, fascia and tendons at shoulder and upper arm level, unspecified arm, initial encounter (principal)
CPT/HCPCS: 99204

== ENCOUNTER → 2023-03-22 13:27 | Outpatient (BNVA) | payer OTHER, SELFPAY | PROVIDERS: PCP Nurse Practitioner Family; Visit Provider Registered Nurse Emergency ==

== ENCOUNTER 2023-04-11 19:20 | Emergency (ER) | payer OTHER, SELFPAY ==
[2023-04-11 19:48] VITALS: BP 119/75; PULSE 95; RESP 16; TEMP 36.6; O2SAT 98; BMI 45.7
[2023-04-11 20:42] LABS: Hematocrit 43.2 % (37.0-47.0); Hemoglobin 14.8 g/dl (12.0-16.0); Mean Corpuscular HGB Conc 34.3 g/dl (31.0-35.0); Mean Corpuscular Volume 87.4 fL (80.0-98.0); Mean Platelet Volume 8.6 fL (9.4-12.3); Platelet Count 383 X10*3/uL (160-400); Red Blood Count 4.94 X10*6/uL (4.20-5.50); Red Cell Distribution Width 11.9 % (11.0-16.0); White Blood Count 13.2 X10*3/uL (4.8-10.8)
[2023-04-11 20:47] LABS: Alanine Aminotransferase 17 U/L (0-31); Alkaline Phosphatase 91 U/L (39-117); Anion Gap 12 (12-20); Aspartate Amino Transferase 20 U/L (5-31); Bilirubin Total 0.2 mg/dL (0.0-1.0); Blood Urea Nitrogen 26 mg/dL (9-16); Calcium 9.1 mg/dL (8.4-10.2); Carbon Dioxide 25 mmol/L (22-29); Chloride 106 mmol/L (96-108); Creatinine Clr Calc Pharmacy 102.5; Estimated Glomerular Filt Rate > 60; Glucose Random 93 mg/dL (60-115); Sodium 139 mmol/L (135-145); Total Protein 7.1 g/dL (6.5-8.0)
--- NOTE | 2023-04-11 21:29 | ED.BACK ---
HPI - Back Pain/Injury General Chief Complaint: Back Pain/Injury Stated Complaint: Lower left side hip/spine pain Time Seen by Provider: 04/11/23 21:26 Source: patient Mode of arrival: ambulatory Limitations: no limitations Related Data Home Medications Medication Instructions Recorded Confirmed d-mannose 500 mg capsule 2,000 mg PO DAILY 03/14/23 03/14/23 Previous Rx's Medication Instructions Recorded amlodipine 5 mg tablet 5 mg PO DAILY #90 tabs 09/11/22 sertraline 100 mg tablet 100 mg PO DAILY #90 tabs 10/13/22 meloxicam 15 mg tablet 15 mg PO DAILY #14 tabs 10/24/22 hydrochlorothiazide 25 mg tablet 25 mg PO DAILY #90 tabs 10/29/22 nicotine 14 mg/24 hr daily 1 patch transdermal DAILY #28 ea 11/14/22 transdermal patch cyclobenzaprine 5 mg tablet 5 mg PO BEDTIME PRN muscle spasm 03/20/23 #30 tabs ibuprofen 600 mg tablet 600 mg PO Q8H PRN pain #30 tabs 03/20/23 norethindrone (contraceptive) 0.35 0.35 mg PO DAILY 90 days #90 tabs 03/21/23 mg tablet (Chiquita) lidocaine 5 % topical patch 1 patch topical DAILY #30 ea 03/22/23 tizanidine 2 mg tablet 2 mg PO BID PRN muscle spasticity 03/22/23 #60 tabs hydroxyzine HCl 25 mg tablet 25 mg PO BEDTIME PRN insomnia #30 03/28/23 tabs Allergies Allergy/AdvReac Type Severity Reaction Status Date / Time No Known Allergies Allergy Verified 03/22/23 13:32 [No Known Allergies*] [facility] Past Medical History Medical History Abscess of right thigh Anxiety and depression Body mass index (BMI) of 39.0-39.9 in adult Depression Elevated platelet count HTN (hypertension) Lipoma of scalp Morbid obesity Surgical History History of incision and drainage (~06/2021) Status post excision of lipoma (~01/04/23) Family History Family History Mother Mental health disorder Hypertension Father Hypertension Paternal Grandfather Colon cancer, Onset Age: 64 Social History Social History Household Members: None Housing: Apartment Alcohol intake: current Alcohol intake frequency: a few times a month Alcohol type: wine and hard liquor Patient Tobacco Use Status: Current everyday Tobacco user Tobacco use type: Cigarette Years Smoked: 15 e-Cigarette/Vaping Use: Never Used Second Hand Smoke Exposure: Yes service: No Current occupational status: employed 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94 (4.20-5.50) X10*6/uL Hgb 14.8 (12.0-16.0) g/dl Hct 43.2 (37.0-47.0) % MCV 87.4 (80.0-98.0) fL MCH 30.0 (27.0-33.0) pg MCHC 34.3 (31.0-35.0) g/dl RDW 11.9 (11.0-16.0) % Plt Count 383 (160-400) X10*3/uL MPV 8.6 L (9.4-12.3) fL Absolute Nucleated RBC 0.000 (0.0-0.012) X10*3/uL Nucleated RBC % (auto) 0.0 (0.0-0.2) /100WBC Sodium 139 (135-145) mmol/L Potassium 4.0 (3.3-5.1) mmol/L Chloride 106 (96-108) mmol/L Carbon Dioxide 25 (22-29) mmol/L Anion Gap 12 (12-20) BUN 26 H (9-16) mg/dL Creatinine 0.92 (0.5-1.4) mg/dL Estim Creat Clear Calc 102.5 Estimated GFR > 60 Random Glucose 93 (60-115) mg/dL Calcium 9.1 (8.4-10.2) mg/dL Total Bilirubin 0.2 (0.0-1.0) mg/dL AST 20 (5-31) U/L ALT 17 (0-31) U/L Alkaline Phosphatase 91 (39-117) U/L Total Protein 7.1 (6.5-8.0) g/dL Albumin 4.0 (3.5-5.0) g/dL Discharge Plan Discharge Prescriptions: No Action amlodipine 5 mg tablet 5 mg PO DAILY Qty: 90 8RF sertraline 100 mg tablet 100 mg PO DAILY Qty: 90 1RF hydrochlorothiazide 25 mg tablet 25 mg PO DAILY Qty: 90 8RF ibuprofen 600 mg tablet 600 mg PO Q8H PRN (Reason: pain) Qty: 30 0RF cyclobenzaprine 5 mg tablet 5 mg PO BEDTIME PRN (Reason: muscle spasm) Qty: 30 0RF hydroxyzine HCl 25 mg tablet 25 mg PO BEDTIME PRN (Reason: insomnia) Qty: 30 0RF d-mannose 500 mg Capsule 2,000 mg PO DAILY nicotine 14 mg/24 hr patch 24 hour 1 patch transdermal DAILY Qty: 28 0RF meloxicam 15 mg tablet 15 mg PO DAILY Qty: 14 0RF norethindrone (contraceptive) [Chiquita] 0.35 mg tablet 0.35 mg PO DAILY 90 Days Qty: 90 4RF tizanidine 2 mg tablet 2 mg PO BID PRN (Reason: muscle spasticity) Qty: 60 0RF Rx Instructions: do 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
== END 2023-04-11 21:44 | disposition left against medical advice (07) ==
PROVIDERS: Internal Medicine; Emergency Provider Emergency Medicine; PCP Nurse Practitioner Family
DX: M25.552 Pain in left hip (principal); Z79.899 Other long term (current) drug therapy
CPT/HCPCS: 36415; 80053; 85027; 99281; 99283

== ENCOUNTER 2023-04-13 14:38 | Outpatient (REF) | payer OTHER, SELFPAY ==
--- NOTE | ~2023-04-13 | XR_ITS ---
EXAMINATION: XR LUMBOSACRAL SPINE WITH OBLIQUES CLINICAL INFORMATION: Low back pain COMPARISON: CT 05/06/2021 TECHNIQUE: AP, both oblique, and lateral views of the lumbar spine. Lateral view of the lumbosacral junction. FINDINGS: The vertebral bodies and posterior elements are normal. The disc spaces are preserved and the vertebral alignment is normal. The paraspinal soft tissues are normal. XR/XR lumbar spine 4V min IMPRESSION: Unremarkable examination.
== END 2023-04-13 14:39 | disposition home or self-care (01) ==
LOC: HO.XRAY 14:38
PROVIDERS: Visit Provider Nurse Practitioner Family
DX: M54.50 Low back pain, unspecified (principal)
CPT/HCPCS: 72110

== ENCOUNTER 2023-05-15 14:21 | Outpatient (AMB) | payer OTHER, SELFPAY ==
[2023-05-15 14:24] VITALS: BP 150/98; PULSE 100; O2SAT 97; BMI 47.4
--- NOTE | 2023-05-15 14:24 | A.OFFPC_ITS ---
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 Allergies No Known Allergies [No Known Allergies*] Allergy (Verified 05/15/23 14:41) Medication List - Last Reconciled 05/15/23 by ROBYN Yang amlodipine 5 mg PO DAILY cyclobenzaprine 5 mg PO BEDTIME PRN d-mannose 2,000 mg PO DAILY hydrochlorothiazide 25 mg PO DAILY hydroxyzine HCl 25 mg PO BEDTIME PRN ibuprofen 600 mg PO Q8H PRN lidocaine 5% 1 patch topical DAILY meloxicam 15 mg PO DAILY nicotine 1 patch transdermal DAILY norethindrone (contraceptive) (Chiquita) 0.35 mg PO DAILY 90 days sertraline 100 mg PO DAILY tizanidine 2 mg PO BID PRN Tobacco use date assessed: 05/15/23 Dental Screening Dental Screen Date: 05/15/23 Did you have a dental visit in the last 12 months?: Yes Did you have a dental problem in the last 6 months where you did not have access to dental care?: No Was dental information given to patient?: Patient has dentist HPI F/U on HTN, depression HPI Details Patient is a 32-year-old female presents today for a routine follow- up.? Medical history significant for right shoulder pain-follows by pain management, insomnia, anxiety, depression, current smoker and hypertension among others.? Patient reports that she is compliant with medications and denies side effects. Patient reports that she had cold 2 weeks ago and she improving now. She denies shortness of breath or chest pain. [facility] Medical History Lipoma of scalp Elevated platelet count Anxiety and depression Body mass index (BMI) of 39.0-39.9 in adult Abscess of right thigh Morbid obesity HTN (hypertension) Depression Surgical History Status post excision of lipoma (~01/04/23) History of incision and drainage (~06/2021) Family History Mother Mental health disorder Hypertension Father Hypertension Paternal Grandfather Colon cancer, Onset Age: 64 Social History Household Members: None Housing: Apartment Alcohol intake: current Alcohol intake frequency: a few times a month Alcohol type: wine and hard liquor Patient Tobacco Use Status: Current everyday Tobacco user Tobacco use type: Cigarette Years Smoked: 15 e-Cigarette/Vaping Use: Never Used Second Hand Smoke Exposure: Yes service: No Current occupational status: employed 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 1. Little interest or pleasure in doing things: not at all 2. Feeling down, depressed, or hopeless: not at all (once a month.) 3. Trouble falling or staying asleep, or sleeping too much: not at all 4. Feeling tired or having little energy: not at all 5. Poor appetite or overeating: not at all 6. Feeling bad about yourself - or that you are a failure or have let yourself or your family down: not at all 7. Trouble concentrating on things, such as reading the newspaper or watching television: not at all 8. Moving or speaking so slowly that other people could have noticed. Or the opposite - being so fidgety or restless that you have been moving around a lot more than usual: not at all 9. Thoughts that you would be better off or of hurting yourself in some way: not at all Total score: 0 Depression Screening Interpretation: Negative 06697 - PHQ-9 Billing: Yes Source: Developed by Drs. Samuel Dasilva, Noni Espinoza, Sal Bunch and colleagues, with an educational sarah from [employer]. Thrive Questionnaire Date Thrive assessed: 11/14/22 AUDIT C Alcohol Use Questionnaire (AUDIT-C) 1. How often do you have a drink containing alcohol?: 2-4 times a month 2. How many drinks containing alcohol do you have on a typical day when you are drinking?: 1 or 2 Total Score: 2 Score Reviewed/Action Taken: No DONALDO-7 AMB Questionnaire DONALDO-7 Date DONALDO - 7 assessed: 05/15/23 Feeling nervous, anxious, or on edge: 0 = Not at all Not being able to stop or control worryin = Not at all Worrying too much about different things: 0 = Not at all Trouble relaxin = Not at all Being so restless that it is hard to sit still: 0 = Not at all Becoming easily annoyed or irritable: 0 = Not at all Feeling afraid as if something awful might happen: 0 = Not at all Total DONALDO-7 score (0-4 normal; 5-9 mild; 10-14 moderate; 15-21 severe): 0 Source: Developed by Drs. Samuel Dasilva, Noni Espinoza, Sal Bunch and colleagues, with an educational sarah from [employer]. DONALDO-7 Assessment Billing DONALDO-7 Assessment Tool: DONALDO-7 Assessment 92796 Review of Systems Const Denies body aches, Denies chills, Denies fever(s) and Denies headache(s) Eyes Denies change in vision ENT Denies dizziness, Denies otalgia, Denies headache(s), Denies nasal discharge, Denies sinus pain and Denies sore throat Card Denies chest pain, Denies edema, Denies lightheadedness and Denies dyspnea Resp Denies chest congestion, Denies cough and Denies dyspnea GI Denies constipation, Denies diarrhea, Denies nausea and Denies vomiting Denies dysuria Musc Denies myalgias Skin/Breast Denies rash Neuro Denies dizziness and Denies headache(s) Physical exam (Primary Care) Vital Signs: Last Vital Signs Pulse 100 05/15/23 14:24 BP 132/84 05/15/23 14:46 Pulse Ox 97 05/15/23 14:24 Oxygen Delivery Method Room Air 05/15/23 14:24 BMI result Body Mass Index 47.4 Tobacco/Smoking Status: Tobacco use Status Tobacco use date assessed 05/15/23 05/15/23 14:26 Patient Tobacco Use Status Current everyday Tobacco 05/15/23 14:26 Tobacco use type Cigarette 05/15/23 14:26 e-Cigarette/Vaping Use Never Used 05/15/23 14:26 PHQ-9: PHQ-9 Score PHQ-9: Total score 0 05/15/23 14:42 Depression Screening Interpretation: Negative Thrive Assessment: Date of Thrive Assessment Date Thrive assessed 11/14/22 05/15/23 14:26 Const General: cooperative and no acute distress Orientation/consciousness: patient oriented x3 HENMT Head: Yes normocephalic and Yes atraumatic Face and sinus: Yes sinuses nontender Mouth: oropharynx normal and moist mucous membranes Throat: Yes posterior oropharynx normal Eyes General: appearance normal, both eyes and all related structures Pupils: Equal, round and reactive pupils present EOM: EOMs intact bilaterally Neck Neck: Yes normal visual inspection, Yes full ROM and Yes no lymphadenopathy Resp Effort & Inspection: normal respiratory effort and able to speak in complete sentences Auscultation: clear to auscultation bilaterally, no crackles, no rales, no rhonchi and no wheezes Cardio Rate: regular rate Rhythm: regular rhythm Heart sounds: S1 normal heart sound present, S2 normal heart sound present and no murmurs GI Auscultation: normal bowel sounds Skin General skin exam: no rashes or lesions noted Neuro General: patient oriented x3 Cranial nerves: Yes Equal, round and reactive pupils present Gait exam (Neuro): Normal gait present Extrem General: Yes full ROM and No edema Assessment and Plan Assessment & Plan (1) Anxiety and depression: Code(s): F41.9 - Anxiety disorder, unspecified; F32.A - Depression, unspecified Plan: Continue to follow-up with therapist at [facility] Continue sertraline 100 mg daily (2) HTN (hypertension): Code(s): I10 - Essential (primary) hypertension Plan: Continue hydrochlorothiazide 25 mg daily and amlodipine 5 mg daily Low-sodium diet and weight loss BP goal equal or less than 140/90 (3) Morbid obesity with BMI of 45.0-49.9, adult: Code(s): E66.01 - Morbid (severe) obesity due to excess calories; Z68.42 - Body mass index [BMI] 45.0-49.9, adult Plan: Encouraged healthy food choices and exercise as tolerated Will follow-up on weight management referral Coding Level of Care Code Est Pt Level 4 (33577) Diagnoses Anxiety and depression F41.9; F32.A HTN (hypertension) I10 Morbid obesity with BMI of 45.0-49.9, adult E66.01; Z68.42 Additional Codes DONALDO-7 Assessment Billing - DONALDO-7 Assessment Tool: DONALDO-7 Assessment 33893 ([id number])
[2023-05-15 14:46] VITALS: BP 132/84
== END 2023-05-15 14:50 | disposition home or self-care (01) ==
PROVIDERS: PCP Nurse Practitioner Family; Visit Provider Nurse Practitioner Family
DX: I10 Essential (primary) hypertension (principal); F41.9 Anxiety disorder, unspecified; E66.01 Morbid (severe) obesity due to excess calories; Z68.42 Body mass index [BMI] 45.0-49.9, adult
CPT/HCPCS: 99214

== ENCOUNTER 2023-05-25 09:30 | Outpatient (AMB) | payer OTHER, SELFPAY ==
--- NOTE | 2023-05-25 10:00 | MHC.OFFVIS ---
Intake Intake Visit Reasons: RIGHT TRAPEZIUS TRIGGER POINT INJECTIONS Allergies No Known Allergies [No Known Allergies*] Allergy (Verified 05/25/23 10:04) HPI RIGHT TRAPEZIUS TRIGGER POINT INJECTIONS HPI Details 32-year-old female who presents today to the office for a right trapezius trigger point injection Denies any recent cough, cold, infection, fever, or other significant changes in medical history since the last office visit. She has been experiencing pain and spasms around the neck and right shoulder blade region that started about a year ago. She has completed four sessions of physical therapy. [facility] Medical History Lipoma of scalp Elevated platelet count Anxiety and depression Body mass index (BMI) of 39.0-39.9 in adult Abscess of right thigh Morbid obesity HTN (hypertension) Depression Surgical History Status post excision of lipoma (~01/04/23) History of incision and drainage (~06/2021) Family History Mother Mental health disorder Hypertension Father Hypertension Paternal Grandfather Colon cancer, Onset Age: 64 Social History Household Members: None Housing: Apartment Alcohol intake: current Alcohol intake frequency: a few times a month Alcohol type: wine and hard liquor Patient Tobacco Use Status: Current everyday Tobacco user Tobacco use type: Cigarette Years Smoked: 15 e-Cigarette/Vaping Use: Never Used Second Hand Smoke Exposure: Yes service: No Current occupational status: employed 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 Alert and oriented. Mood and affect appropriate. Follows and participates in conversation appropriately. Respiratory effort is unlabored. Able to transition from sit to stand unassisted. Ambulates with bilaterally normal heel strike and toe off. Office Procedures Injection-Therapetic Trigger Single Point: 18094-Josdodb point injection, 1 or 2 Left trapezius trigger point injection Pre-procedure diagnosis: Myofascial pain Post-procedure diagnosis: Myofascial pain Site and number of trigger points: Left Trapezius Solution: Total volume administered 3 ml (lidocaine 1% + bupivacaine 0.25%). The procedure, its benefits, and its risks were explained to the patient and all questions were answered. A pulse oximeter monitor was attached and the patient was monitored throughout the procedure. Prior to the start of the procedure, a ?time out? was performed to confirm correct patient, procedure, and laterality. Trigger points were identified by manual palpation and marked. The skin was cleaned with Chloraprep. A 1.5 inch 25 G needle was used. Each of the trigger points were approximated and elevated in the direction away from the body. Dry needling then took place for five seconds. Approximately 0.5 ml to 1 ml of injectate was delivered to the trigger point followed by dry needling for five seconds. This process was repeated at each trigger point site. The patient tolerated the procedure well. Post-procedure, breath sounds were equal at both sides of the chest. The patient tolerated the procedure well, without complication. The patient denied any numbness, paresthesias, or weakness. Post-procedure vitals were recorded as part of the nursing discharge note in electronic medical record. Following a period of observation, the patient was discharged in stable condition with written discharge instructions. Results Reviewed Results Reviewed: No imaging is available for review. Assessment & Plan Assessment & Plan (1) Trapezius muscle strain: Code(s): S46.819A - Strain of other muscles, fascia and tendons at shoulder and upper arm level, unspecified arm, initial encounter Qualifiers: Encounter type: subsequent encounter (2) Myofascial pain: Code(s): M79.18 - Myalgia, other site (3) Cervical radicular pain: Code(s): M54.12 - Radiculopathy, cervical region Plan Patient is status post left sided trigger point injection. Patient tolerated procedure well and was discharged home in stable condition with discharge instructions. All questions were answered. A referral was provided to physical therapy for neck pain. The patient will receive a call to schedule an appointment. I also encouraged the patient to perform gentle exercises at home. If pain continues to persist despite PT/HEP, we will order an MRI scan of the neck for further evaluation. Scribed for Dr. Moeller by Levon Amaya, medical care evaluation specialist, on 05/25/2023. I, Dr. Moeller, have personally reviewed and agree with the information entered by the scribe. Orders: Orders PT Evaluation and Treatment 05/25/23 M54.12 - Radiculopathy, cervical region Coding Level of Care Code Est Pt Level 3 (66265) Diagnoses Trapezius muscle strain S46.819A Encounter type: subsequent encounter Myofascial pain M79.18 Cervical radicular pain M54.12 CPT Codes Details - Trigger Single Point: 72202-Iptmvoi point injection, 1 or 2 ([id number])
== END 2023-05-25 10:14 | disposition home or self-care (01) ==
PROVIDERS: PCP Nurse Practitioner Family; Visit Provider Internal Medicine
DX: M79.18 Myalgia, other site (principal)
CPT/HCPCS: 20552

== ENCOUNTER → 2023-05-25 09:30 | Outpatient (BNVA) | payer OTHER, SELFPAY | PROVIDERS: PCP Nurse Practitioner Family; Visit Provider Internal Medicine | DX: M79.18 Myalgia, other site (principal); S46.819A Strain of other muscles, fascia and tendons at shoulder and upper arm level, unspecified arm, initial encounter; M54.12 Radiculopathy, cervical region | CPT/HCPCS: 20552 ==

== ENCOUNTER → 2023-05-31 12:50 | Outpatient (BNVA) | payer OTHER, SELFPAY | PROVIDERS: PCP Nurse Practitioner Family; Visit Provider Physician Assistant Surgical ==

== ENCOUNTER 2023-06-28 12:52 | Outpatient (AMB) | payer OTHER, SELFPAY ==
--- NOTE | 2023-06-28 12:54 | A.OFFVIS_ITS ---
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 Her goal is to feel good about herself. She reports first being concerned about her weight all of her life She has tried multiple methods of weight loss including restrictive diets without permanent results. Present weight is highest weight ever. She lives with alone. 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 Sees a therapist regularly. She wakes at: 6am, bed at 8-9 pm. Breakfast: coffee 1 cup with half and half and 5 sweet n lo 7-9 am - Premier shake, started one giancarlo h ago Lunch: 12 pm - 6 egg whites and gr. water or coffee. Dinner: 6pm -salad with parmesean cheese and lite dressing OR tuna wrap. water After dinner: vegetable chips or more fruit Other snacks: fruit in am, 3 fruit snacks in afternoon Liquids: No soda, rare fruit juice. Alcohol intake: once per week, 3 hard seltzer, tobacco: 5 cigs /day - started nicotine patch earlier this week, marijuana: rarely Exercise: none, has gym membership. Has some equipment at home Last mammogram: too young Last pap smear: up to date control method: progestin only contraceptive pill SANTA:0 ESS:16 GERD:0 QOL:64 PFSH Medical History (Updated 06/28/23 @ 13:57 by Britt Coto PA-C) Lipoma of scalp Elevated platelet count Anxiety and depression Body mass index (BMI) of 39.0-39.9 in adult Abscess of right thigh Morbid obesity HTN (hypertension) Depression Surgical History Hx of wisdom tooth extraction Status post excision of lipoma (~01/04/23) History of incision and drainage (~06/2021) Family History Mother Mental health disorder Hypertension Father Hypertension Paternal Grandfather Colon cancer, Onset Age: 64 Social History Household Members: None Housing: Apartment Alcohol intake: current Alcohol intake frequency: a few times a month Alcohol type: wine and hard liquor Patient Tobacco Use Status: Current everyday Tobacco user Tobacco use type: Cigarette Cigarettes Per Day: 5 Years Smoked: 15 e-Cigarette/Vaping Use: Never Used Second Hand Smoke Exposure: Yes service: No Current occupational status: employed 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/[employer] Current occupational exposures/hazards: No Sexual orientation: Straight/Heterosexual Gender identity: Female Cognitive needs: No Hearing needs: No Vision needs: Yes (Contact lenses.) Female Reproductive History Menstrual Age of Menarche: 10 Physical Exam Const General: cooperative, no acute distress and well developed Nutritional Appearance: obese Orientation/consciousness: patient oriented x3 HEENT Head: Yes normal to inspection Neck Neck: Yes normal visual inspection Thyroid: Thyroid normal Resp Effort & Inspection: normal respiratory effort Auscultation: clear to auscultation bilaterally Cardio Rate: regular rate Rhythm: regular rhythm Heart sounds: S1 normal heart sound present, S2 normal heart sound present and no murmurs GI Inspection: No distended and Yes obesity Palpation (GI): Soft to palpation, nontender and no guarding Skin General skin exam: no rashes or lesions noted and other (warm and dry) Wounds: no wounds Hair: normal Neuro General: patient oriented x3 Extrem General: Yes no pedal edema and Yes no calf tenderness Psych Attitude: cooperative Thought process: Normal thought process present Thought content: Normal thought content present Insight: Good insight present (Psych) Judgement: Good judgement present (Psych) Assessment & Plan Assessment & Plan (1) Morbid obesity with BMI of 40.0-44.9, adult: Code(s): E66.01 - Morbid (severe) obesity due to excess calories; Z68.41 - Body mass index [BMI] 40.0-44.9, adult Plan: This is a 32 yo woman with morbid obesity who will start SWL program to prepare for bariatric surgery. Blood work, h pylori , CXR, ECG, Abd ULS and UGI have been ordered. She is being scheduled for RD and BH initial consultations. She will start SWL classes and watch at 3 classes before her next appt with Felisha. She will continue nicotine lozeengers for smoking cessation. Home SS has been ordered 1. Adequate sleep of 7-8 hours per night discussed 2. Healthy meal plan - stop snacking All meals/MR's need to take 20 minutes to complete coffee with UAM 8am - protein shake with water or UAM 12pm - bar 3 pm - protein shake with water or UAM 6 pm- dinner of 12 forks lean protein, 12 forks vegetable, 1 serving fruit Exercise - Cardio 4 -5 d week = treadmill at speed 3.0, incline 1-7 - to burn 300 calories 3 d/ wk - circuit room 15/15/30 lbs The importance of avoiding and breast feeding for at least 18 months after bariatric surgery was discussed in the information session and was reinforced today. Pt will purchase body composition analyzer (recommended list given to patient) and weight herself weekly. Next appt with me in 3 weeks. Text me with any questions and weekly weights. Patient is morbidly obese and is not considered stable at this time.?I spent a total of 60 minutes reviewing/updating records, examining the patient and counseling the patient on weight management as detailed above. (2) HTN (hypertension): Code(s): I10 - Essential (primary) hypertension (3) Depression: Code(s): F32.9 - Major depressive disorder, single episode, unspecified (4) Morbid obesity with BMI of 45.0-49.9, adult: Code(s): E66.01 - Morbid (severe) obesity due to excess calories; Z68.42 - Body mass index [BMI] 45.0-49.9, adult (5) Anxiety and depression: Code(s): F41.9 - Anxiety disorder, unspecified; F32.A - Depression, unspecified (6) Insomnia: Code(s): G47.00 - Insomnia, unspecified (7) Current smoker: Code(s): F17.200 - Nicotine dependence, unspecified, uncomplicated (8) Daytime somnolence: Code(s): R40.0 - Somnolence Orders: Orders Lipid Panel Today E66.01 - Morbid (severe) obesity due to excess calories, F32.A - Depression, unspecified, F41.9 - Anxiety disorder, unspecified, R40.0 - Somnolence, Z68.41 - Body mass index [BMI] 40.0-44.9, adult, Z68.42 - Body mass index [BMI] 45.0-49.9, adult IRON PROFILE Today E66.01 - Morbid (severe) obesity due to excess calories, F32.A - Depression, unspecified, F41.9 - Anxiety disorder, unspecified, R40.0 - Somnolence, Z68.41 - Body mass index [BMI] 40.0-44.9, adult, Z68.42 - Body mass index [BMI] 45.0-49.9, adult Vitamin B12 and Folate Today E66.01 - Morbid (severe) obesity due to excess calories, F32.A - Depression, unspecified, F41.9 - Anxiety disorder, unspecified, R40.0 - Somnolence, Z68.41 - Body mass index [BMI] 40.0-44.9, adult, Z68.42 - Body mass index [BMI] 45.0-49.9, adult Zinc Today E66.01 - Morbid (severe) obesity due to excess calories, F32.A - Depression, unspecified, F41.9 - Anxiety disorder, unspecified, R40.0 - Somnolence, Z68.41 - Body mass index [BMI] 40.0-44.9, adult, Z68.42 - Body mass index [BMI] 45.0-49.9, adult Comprehensive Met. Panel Today E66.01 - Morbid (severe) obesity due to excess calories, F32.A - Depression, unspecified, F41.9 - Anxiety disorder, unspecified, R40.0 - Somnolence, Z68.41 - Body mass index [BMI] 40.0-44.9, adult, Z68.42 - Body mass index [BMI] 45.0-49.9, adult Vitamin B1 Today E66.01 - Morbid (severe) obesity due to excess calories, F32.A - Depression, unspecified, F41.9 - Anxiety disorder, unspecified, R40.0 - Somnolence, Z68.41 - Body mass index [BMI] 40.0-44.9, adult, Z68.42 - Body mass index [BMI] 45.0-49.9, adult TSH reflex Free T4 Today E66.01 - Morbid (severe) obesity due to excess calories, F32.A - Depression, unspecified, F41.9 - Anxiety disorder, unspecified, R40.0 - Somnolence, Z68.41 - Body mass index [BMI] 40.0-44.9, adult, Z68.42 - Body mass index [BMI] 45.0-49.9, adult H Pylori Breath Test Today E66.01 - Morbid (severe) obesity due to excess calories, F32.A - Depression, unspecified, F41.9 - Anxiety disorder, unspecified, R40.0 - Somnolence, Z68.41 - Body mass index [BMI] 40.0-44.9, adult, Z68.42 - Body mass index [BMI] 45.0-49.9, adult Vitamin D 25-OH Total Today E66.01 - Morbid (severe) obesity due to excess calories, F32.A - Depression, unspecified, F41.9 - Anxiety disorder, unspecified, R40.0 - Somnolence, Z68.41 - Body mass index [BMI] 40.0-44.9, adult, Z68.42 - Body mass index [BMI] 45.0-49.9, adult US abdomen comp w elastography Today E66.01 - Morbid (severe) obesity due to excess calories, F32.A - Depression, unspecified, F41.9 - Anxiety disorder, unspecified, R40.0 - Somnolence, Z68.41 - Body mass index [BMI] 40.0-44.9, adult, Z68.42 - Body mass index [BMI] 45.0-49.9, adult ECG 12 lead EKG Today E66.01 - Morbid (severe) obesity due to excess calories, F32.A - Depression, unspecified, F41.9 - Anxiety disorder, unspecified, R40.0 - Somnolence, Z68.41 - Body mass index [BMI] 40.0-44.9, adult, Z68.42 - Body mass index [BMI] 45.0-49.9, adult Insulin Today E66.01 - Morbid (severe) obesity due to excess calories, F32.A - Depression, unspecified, F41.9 - Anxiety disorder, unspecified, R40.0 - Somnolen ce, Z68.41 - Body mass index [BMI] 40.0-44.9, adult, Z68.42 - Body mass index [BMI] 45.0-49.9, adult Complete Blood Count Auto Diff Today E66.01 - Morbid (severe) obesity due to excess calories, F32.A - Depression, unspecified, F41.9 - Anxiety disorder, unspecified, R40.0 - Somnolence, Z68.41 - Body mass index [BMI] 40.0-44.9, adult, Z68.42 - Body mass index [BMI] 45.0-49.9, adult Vitamin A Today E66.01 - Morbid (severe) obesity due to excess calories, F32.A - Depression, unspecified, F41.9 - Anxiety disorder, unspecified, R40.0 - Somnolence, Z68.41 - Body mass index [BMI] 40.0-44.9, adult, Z68.42 - Body mass index [BMI] 45.0-49.9, adult C Reactive Protein Today E66.01 - Morbid (severe) obesity due to excess c alories, F32.A - Depression, unspecified, F41.9 - Anxiety disorder, unspecified, R40.0 - Somnolence, Z68.41 - Body mass index [BMI] 40.0-44.9, adult, Z68.42 - Body mass index [BMI] 45.0-49.9, adult Ferritin Today E66.01 - Morbid (severe) obesity due to excess calories, F32.A - Depression, unspecified, F41.9 - Anxiety disorder, unspecified, R40.0 - Somnolence, Z68.41 - Body mass index [BMI] 40.0-44.9, adult, Z68.42 - Body mass index [BMI] 45.0-49.9, adult PTHI Today E66.01 - Morbid (severe) obesity due to excess calories, F32.A - Depression, unspecified, F41.9 - Anxiety disorder, unspecified, R40.0 - Somnolence, Z68.41 - Body mass index [BMI] 40.0-44.9, adult, Z68.42 - Body mass index [BMI] 45.0-49.9, adult Hemoglobin A1c Today E66.01 - Morbid (severe) obesity due to excess calories, F32.A - Depression, unspecified, F41.9 - Anxiety disorder, unspecified, R40.0 - Somnolence, Z68.41 - Body mass index [BMI] 40.0-44.9, adult, Z68.42 - Body mass index [BMI] 45.0-49.9, adult XR chest 2V Today E66.01 - Morbid (severe) obesity due to excess calories, F32.A - Depression, unspecified, F41.9 - Anxiety disorder, unspecified, R40.0 - Somnolence, Z68.41 - Body mass index [BMI] 40.0-44.9, adult, Z68.42 - Body mass index [BMI] 45.0-49.9, adult FL upper GI w air Today E66.01 - Morbid (severe) obesity due to excess calories, F32.A - Depression, unspecified, F41.9 - Anxiety disorder, unspecified, R40.0 - Somnolence, Z68.41 - Body mass index [BMI] 40.0-44.9, adult, Z68.42 - Body mass index [BMI] 45.0-49.9, adult RT home sleep study Today E66.01 - Morbid (severe) obesity due to excess calories, R40.0 - Somnolence Referrals Behavioral Health Referral E66.01 - Morbid (severe) obesity due to excess calories, F32.A - Depression, unspecified, F41.9 - Anxiety disorder, unspecifie d, R40.0 - Somnolence, Z68.41 - Body mass index [BMI] 40.0-44.9, adult, Z68.42 - Body mass index [BMI] 45.0-49.9, adult Nutrition/Dietitian Referral E66.01 - Morbid (severe) obesity due to excess calories, F32.A - Depression, unspecified, F41.9 - Anxiety disorder, unspecified, R40.0 - Somnolence, Z68.41 - Body mass index [BMI] 40.0-44.9, adult, Z68.42 - Body mass index [BMI] 45.0-49.9, adult Coding Level of Care Code New Pt Level 5 (79645) Diagnoses Morbid obesity with BMI of 40.0-44.9, adult E66.01; Z68.41 HTN (hypertension) I10 Depression F32.9 Morbid obesity with BMI of 45.0-49.9, adult E66.01; Z68.42 Anxiety and depression F41.9; F32.A Insomnia G47.00 Current smoker F17.200 Daytime somnolence R40.0
[2023-06-28 13:06] VITALS: BP 129/83; PULSE 96; TEMP 36.2; O2SAT 97; BMI 43.9
== END 2023-06-28 14:00 | disposition home or self-care (01) ==
PROVIDERS: PCP Nurse Practitioner Family; Visit Provider Physician Assistant
DX: E66.01 Morbid (severe) obesity due to excess calories (principal); Z68.43 Body mass index [BMI] 50.0-59.9, adult; I10 Essential (primary) hypertension
CPT/HCPCS: 99205

== ENCOUNTER → 2023-06-28 12:52 | Outpatient (BNVA) | payer OTHER, SELFPAY | PROVIDERS: PCP Nurse Practitioner Family; Visit Provider Physician Assistant | DX: Z11.0 Encounter for screening for intestinal infectious diseases (principal); E66.01 Morbid (severe) obesity due to excess calories; I10 Essential (primary) hypertension; F32.9 Major depressive disorder, single episode, unspecified; F41.9 Anxiety disorder, unspecified; F32.A Depression, unspecified; G47.00 Insomnia, unspecified; R40.0 Somnolence; F17.210 Nicotine dependence, cigarettes, uncomplicated; Z68.41 Body mass index [BMI] 40.0-44.9, adult | CPT/HCPCS: 99202; 99211 ==

== ENCOUNTER 2023-06-28 15:24 | Outpatient (REF) | payer OTHER, SELFPAY ==
[2023-06-29 14:37] LABS: H Pylori Breath Test Negative (Negative)
== END 2023-06-28 15:25 | disposition home or self-care (01) ==
LOC: HO.LNP 15:24
PROVIDERS: Visit Provider Physician Assistant
DX: E66.01 Morbid (severe) obesity due to excess calories (principal); Z68.42 Body mass index [BMI] 45.0-49.9, adult; F41.9 Anxiety disorder, unspecified; F32.A Depression, unspecified; R40.0 Somnolence
CPT/HCPCS: 83013

== ENCOUNTER 2023-09-19 08:17 | Outpatient (AMB) | payer OTHER, SELFPAY ==
--- NOTE | 2023-09-19 08:45 | A.OFFPC_ITS ---
Vital Signs 09/19/23 08:46 Height 5 ft 3 in Weight 247 lb 4 oz BMI 43.8 BP 120/74 Blood Pressure Location Lt brachial Position Standing Pulse 94 Pulse Source Pulse Oximeter Pulse Oximetry (%) 97 Oxygen Delivery Method Room Air Intake Visit Reasons: 4 month follow up Intake Note: Patient is here today to follow up on HTN and transfer of care. [facility]eguard Specialist Required: No Supervisor Personnel Clerks: Not Required per policy Accompanied by: Self / Same As Patient Allergies No Known Allergies [No Known Allergies*] Allergy (Verified 09/19/23 09:20) Medication List - Last Reconciled 09/19/23 by Chris Bolaños MD amlodipine 5 mg PO DAILY hydrochlorothiazide 25 mg PO DAILY hydroxyzine HCl 25 mg PO BEDTIME PRN nicotine 1 patch transdermal DAILY norethindrone (contraceptive) (Chiquita) 0.35 mg PO DAILY 90 days sertraline 100 mg PO DAILY Tobacco use date assessed: 05/15/23 Dental Screening Dental Screen Date: 09/19/23 Did you have a dental visit in the last 12 months?: Yes Did you have a dental problem in the last 6 months where you did not have access to dental care?: No Was dental information given to patient?: Patient has dentist HPI 4 month follow up HPI Details 33-year-old female presents to the offic e to discuss her medical condition. Patient is transferring care as her provider has left the practice. She is given up on bariatric surgery as a way to reduce weight. She no longer sees them. She is declined all the investigations and blood work ordered by them. Patient now is working on going to the gym and eating a healthy diet. Her weight has reduced from 259-247 lb. Patient is wondering about her smoking habits. She uses a patch which has not been very helpful. Smokes 10 cigarettes a day. She lives in a condo and has to smoke outside the house. She smokes in the car. Patient continues to have right shoulder pain for the past 2 years. Has seen physical therapy and pain management without much help. Sharp pain in the right shoulder at times. She is also complaining of pain in the right hip. Able to walk and do all activities of daily living. [facility] Medical History (Updated 09/19/23 @ 09:30 by Chris Bolaños MD) Osteoarthritis of right hip Tobacco use disorder Lipoma of scalp Elevated platelet count Anxiety and depression Body mass index (BMI) of 39.0-39.9 in adult Abscess of right thigh Morbid obesity HTN (hypertension) Depression Surgical History Hx of wisdom tooth extraction Status post excision of lipoma (~01/04/23) History of incision and drainage (~06/2021) Family History Mother Mental health disorder Hypertension Father Hypertension Paternal Grandfather Colon cancer, Onset Age: 64 Social History Household Members: None Housing: Apartment Alcohol intake: current Alcohol intake frequency: a few times a month Alcohol type: wine and hard liquor Patient Tobacco Use Status: Current everyday Tobacco user Tobacco use type: Cigarette Cigarettes Per Day: 10 Years Smoked: 15 e-Cigarette/Vaping Use: Never Used Second Hand Smoke Exposure: Yes service: No Current occupational status: employed 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 1. Little interest or pleasure in doing things: not at all 2. Feeling down, depressed, or hopeless: not at all 3. Trouble falling or staying asleep, or sleeping too much: not at all 4. Feeling tired or having little energy: not at all 5. Poor appetite or overeating: not at all 6. Feeling bad about yourself - or that you are a failure or have let yourself or your family down: not at all 7. Trouble concentrating on things, such as reading the newspaper or watching television: not at all 8. Moving or speaking so slowly that other people could have noticed. Or the opposite - being so fidgety or restless that you have been moving around a lot more than usual: not at all 9. Thoughts that you would be better off or of hurting yourself in some way: not at all Total score: 0 Depression Screening Interpretation: Negative Depression Screening Done: Yes Source: Developed by Drs. Samuel Dasilva, Noni Espinoza, Sal Bunch and colleagues, with an educational sarah from [employer]. Thrive Questionnaire Date Thrive assessed: 11/14/22 Currently or been in a relationship where the following occur: no concerns reported THRIVE Score: 0 DONALDO-7 AMB Questionnaire DONALDO-7 Date DONALDO - 7 assessed: 05/15/23 Source: Developed by Drs. Samuel Dasilva, Sal Theodore and colleagues, with an educational sarah from [employer]. Physical exam (Primary Care) Vital Signs: Last Vital Signs Pulse 94 09/19/23 08:46 BP 120/74 09/19/23 08:46 Pulse Ox 97 09/19/23 08:46 Oxygen Delivery Method Room Air 09/19/23 08:46 Care Plan Goal for BP management: Blood pressure is in range. Continue current medications. BMI result Body Mass Index 43.8 BMI Assessment/Plan discussion: High (1 lb per week weight loss suggested.) BMI High, discussed plan: lifestyle, weight reduction and dietary Tobacco/Smoking Status: Tobacco use Status Tobacco use date assessed 05/15/23 09/19/23 08:52 Patient Tobacco Use Status Current everyday Tobacco 09/19/23 08:52 Tobacco use type Cigarette 09/19/23 08:52 e-Cigarette/Vaping Use Never Used 09/19/23 08:52 Are you ready to quit: Yes Tobacco cessation counseling provided: Yes Items discussed: Nicotine replacement Relapse Prevention: discussed the importance of a supportive environment, weight gain after smoking is common and discussed dietary, exercise and/or lifestyle changes Number of minutes spent counselin CPT code: 96827 - 4-10 Minutes PHQ-9: PHQ-9 Score PHQ-9: Total score 0 09/19/23 08:52 Depression Screening Interpretation: Negative Thrive Assessment: Date of Thrive Assessment Date Thrive assessed 11/14/22 09/19/23 08:52 Currently or been in a relationship where the following occur: no concerns reported Const General: cooperative and healthy appearing Nutritional Appearance: well nourished Orientation/consciousness: patient oriented x3 Limitations: no limitations HENMT Head: Yes normal to inspection Eyes General: appearance normal, both eyes and all related structures Neck Neck: Yes normal visual inspection Chest Chest palpation & inspection: normal palpation of entire chest wall Resp Effort & Inspection: normal respiratory effort Neuro General: patient oriented x3 Assessment and Plan Assessment & Plan (1) Osteoarthritis of right hip: Code(s): M16.11 - Unilateral primary osteoarthritis, right hip Plan: X-ray of the hip ordered. Will call with the results. (2) Right shoulder pain: Code(s): M25.511 - Pain in right shoulder Plan: Orthopedic appointment suggested. She has failed physical therapy and NSAIDs. (3) Morbid obesity with BMI of 45.0-49.9, adult: Code(s): E66.01 - Morbid (severe) obesity due to excess calories; Z68.42 - Body mass index [BMI] 45.0-49.9, adult Plan: Importance of diet and exercise explained to the patient. (4) Cervical radicular pain: Code(s): M54.12 - Radiculopathy, cervical region (5) Tobacco use disorder: Code(s): F17.200 - Nicotine dependence, unspecified, uncomplicated Plan: Counseling to quit smoking done. 20 minutes spent explaining various ways to quit. Orders: Orders XR hip RT w PEL1V Today M16.11 - Unilateral primary osteoarthritis, right hip Basic Metabolic Panel Today D75.839 - Thrombocytosis, unspecified, E66.01 - Morbid (severe) obesity due to excess calories, F32.A - Depression, unspecified, F41.9 - Anxiety disorder, unspecified, Z68.42 - Body mass index [BMI] 45.0- 49.9, adult Complete Blood Count no Diff Today D75.839 - Thrombocytosis, unspecified, E66.01 - Morbid (severe) obesity due to excess calories, F32.A - Depression, unspecified, F41.9 - Anxiety disorder, unspecified, Z68.42 - Body mass index [BMI] 45.0-49.9, adult Lipid Panel Today D75.839 - Thrombocytosis, unspecified, E66.01 - Morbid (severe) obesity due to excess calories, F32.A - Depression, unspecified, F41.9 - Anxiety disorder, unspecified, Z68.42 - Body mass index [BMI] 45.0-49.9, adult UA and rflx microscopic Today D75.839 - Thrombocytosis, unspecified, E66.01 - Morbid (severe) obesity due to excess calories, F32.A - Depression, unspecified, F41.9 - Anxiety disorder, unspecified, Z68.42 - Body mass index [BMI] 45.0- 49.9, adult Liver Panel Today D75.839 - Thrombocytosis, unspecified, E66.01 - Morbid (severe) obesity due to excess calories, F32.A - Depression, unspecified, F41.9 - Anxiety disorder, unspecified, Z68.42 - Body mass index [BMI] 45.0-49.9, adult Thyroid Stimulating Hormone Today D75.839 - Thrombocytosis, unspecified, E66.01 - Morbid (severe) obesity due to excess calories, F32.A - Depression, unspecified, F41.9 - Anxiety disorder, unspecified, Z68.42 - Body mass index [BMI] 45.0-49.9, adult Referrals Orthopedics Referral M25.511 - Pain in right shoulder Coding Level of Care Code Est Pt Level 4 (26141) Diagnoses Osteoarthritis of right hip M16.11 Right shoulder pain M25.511 Morbid obesity with BMI of 45.0-49.9, adult E66.01; Z68.42 Cervical radicular pain M54.12 Tobacco use disorder F17.200 Additional Codes Vital Signs *Quality* - CPT code: 38590 - 4-10 Minutes ([id number])
[2023-09-19 08:46] VITALS: BP 120/74; PULSE 94; O2SAT 97; BMI 43.8
== END 2023-09-19 09:16 | disposition home or self-care (01) ==
PROVIDERS: PCP Internal Medicine; Visit Provider Internal Medicine
DX: M16.11 Unilateral primary osteoarthritis, right hip (principal); E66.01 Morbid (severe) obesity due to excess calories; Z68.42 Body mass index [BMI] 45.0-49.9, adult; F17.210 Nicotine dependence, cigarettes, uncomplicated; M25.511 Pain in right shoulder; M54.12 Radiculopathy, cervical region
CPT/HCPCS: 99214; 99406

== ENCOUNTER 2023-09-20 11:44 | Outpatient (REF) | payer OTHER, SELFPAY ==
--- NOTE | ~2023-09-20 | XR_ITS ---
EXAMINATION: XR SHOULDER, RIGHT CLINICAL INFORMATION: Pain. COMPARISON: Radiograph left shoulder 02/07/2023. TECHNIQUE: Three views of the right shoulder. FINDINGS: The bones and soft tissues are normal. No fracture. Glenohumeral and acromioclavicular alignment is anatomic with normal joint space. No abnormal soft tissue calcifications. XR/XR shoulder RT min 2V IMPRESSION: Normal right shoulder.
== END 2023-09-20 11:45 | disposition home or self-care (01) ==
LOC: HO.HOSX 11:44
PROVIDERS: Visit Provider Orthopaedic Surgery
DX: M24.811 Other specific joint derangements of right shoulder, not elsewhere classified (principal)
CPT/HCPCS: 73030; 99202

== ENCOUNTER 2023-09-20 13:45 | Outpatient (AMB) | payer OTHER, SELFPAY ==
[2023-09-20 13:50] VITALS: BMI 43.7
--- NOTE | 2023-09-20 13:50 | MHC.OFFVIS ---
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 She has previously been seen with pain mgmt who diagnosed her with right trapezius strain and administered trigger point injection on 05/25/2023. Hc of PT which was not helpful. Has occasional numbness and tingling radiating down the arm. 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 18 months of pain. Pain is superior shoulder. Pain is constant. Pain at night. Injections were not helpful and PT has not helped either. 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 [facility] Medical History Osteoarthritis of right hip Tobacco use disorder Lipoma of scalp Elevated platelet count Anxiety and depression Body mass index (BMI) of 39.0-39.9 in adult Abscess of right thigh Morbid obesity HTN (hypertension) Depression Surgical History Hx of wisdom tooth extraction Status post excision of lipoma (~01/04/23) History of incision and drainage (~06/2021) Family History Mother Mental health disorder Hypertension Father Hypertension Paternal Grandfather Colon cancer, Onset Age: 64 Social History Household Members: None Housing: Apartment Alcohol intake: current Alcohol intake frequency: a few times a month Alcohol type: wine and hard liquor Patient Tobacco Use Status: Current everyday Tobacco user Tobacco use type: Cigarette Cigarettes Per Day: 10 Years Smoked: 15 e-Cigarette/Vaping Use: Never Used Second Hand Smoke Exposure: Yes service: No Current occupational status: employed 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/[employer] Current occupational exposures/hazards: No Sexual orientation: Straight/Heterosexual Gender identity: Female Cognitive needs: No Hearing needs: No Vision needs: Yes (Contact lenses.) Female Reproductive History Menstrual Age of Menarche: 10 Review of Systems Const All systems reviewed & are unremarkable except as noted in HPI and below Physical Exam Vital Signs: BMI result Body Mass Index 43.7 Const General: no acute distress, alert and awake Orientation/consciousness: patient oriented x3 HEENT Head: Yes normocephalic and Yes atraumatic Eyes EOM: EOMs intact bilaterally Resp Effort & Inspection: normal respiratory effort and able to speak in complete sentences Cardio Jugular venous distension: no JVD Skin General skin exam: turgor normal Rashes: no rashes Neuro General: patient oriented x3 Extrem Other: TTP over AC joint 45/90/130/L5 Pain with XBA Painful Speed's Neg EC Psych Appearance: grossly normal Affect: normal affect Attitude: cooperative Results Reviewed Results Reviewed: I personally reviewed relevant radiographs. nl right shoulder Assessment & Plan Assessment & Plan (1) Internal derangement of right shoulder: Code(s): M24.811 - Other specific joint derangements of right shoulder, not elsewhere classified Plan: Right shoulder is painful with daily activity. She has not improved with PT or injections. MRI to assess. Plan Prepared for Manjinder Ibanez MD by All Murguia, medical office secretary, on 09/20/23 at 2:05 PM, EST. Orders: Orders XR shoulder RT min 2V 09/20/23 M25.519 - Pain in unspecified shoulder MR shoulder RT wo con 09/20/23 M24.811 - Other specific joint derangements of right shoulder, not elsewhere classified Coding Level of Care Code New Pt Level 4 (37746) Diagnoses Internal derangement of right shoulder M24.811
== END 2023-09-20 14:12 | disposition home or self-care (01) ==
PROVIDERS: PCP Internal Medicine; Visit Provider Orthopaedic Surgery
DX: M24.811 Other specific joint derangements of right shoulder, not elsewhere classified (principal)
CPT/HCPCS: 99203

== ENCOUNTER 2023-10-11 10:35 | Outpatient (REF) | payer OTHER, SELFPAY ==
--- NOTE | ~2023-10-11 | XR_ITS ---
EXAMINATION: XR HIP, RIGHT CLINICAL INFORMATION: Unilateral primary osteoarthritis right hip. COMPARISON: Lumbar spine of 04/13/2023. TECHNIQUE: AP view of the pelvis as well as 2 views of the right hip. FINDINGS: The bilateral sacroiliac joints are symmetric. Mild degenerative changes in the right hip with mild hypertrophic change and joint space narrowing. Alignment preserved. Left hip joint alignment preserved on single AP view. XR/XR hip RT w PEL1V IMPRESSION: Mild degenerative changes in the right hip. CT scan should be obtained if there is clinical concern for fracture or other pathology. This study was presented today October 17, 2023 for interpretation. Prompt priority results supplied at this time to the referring provider as requested by the provider.
== END 2023-10-11 10:36 | disposition home or self-care (01) ==
LOC: HO.XRAY 10:35
PROVIDERS: PCP Internal Medicine; Visit Provider Internal Medicine
DX: M16.11 Unilateral primary osteoarthritis, right hip (principal)
CPT/HCPCS: 73502

== ENCOUNTER 2023-11-08 13:02 | Outpatient (REF) | payer OTHER, SELFPAY | END 2023-11-08 13:03 | disposition home or self-care (01) | LOC: HO.MRI 13:02 | PROVIDERS: PCP Internal Medicine; Visit Provider Orthopaedic Surgery | DX: Z13.89 Encounter for screening for other disorder (principal) ==

== ENCOUNTER 2024-02-06 09:37 | Outpatient (AMB) | payer OTHER, SELFPAY ==
[2024-02-06 09:40] VITALS: BP 118/70; PULSE 106; TEMP 36.2; O2SAT 98; BMI 43.4
--- NOTE | 2024-02-06 09:40 | AM.OFFWIN_ITS ---
Intake Vital Signs 3 02/06/24 09:40 Height 5 ft 3 in Weight 245 lb BMI 43.4 BP 118/70 Blood Pressure Location Lt brachial Position Sitting Pulse 106 H Pulse Source Pulse Oximeter Temp 97.1 F Temp Source Temporal Artery Scan Pulse Oximetry (%) 98 Oxygen Delivery Method Room Air Intake Visit Reasons: EP- Conjunctivitis Right Eye/Rash left neck Intake Note: pt is here today for conjunctivitis rt eye started yesterday Patient Tobacco Use Status: Current everyday Tobacco user Allergies No Known Allergies [No Known Allergies*] Allergy (Verified 02/06/24 09:43) Medication List - Last Reconciled 02/06/24 by Elenita Molina MD amlodipine 5 mg PO DAILY clotrimazole-betamethasone 1-0.05 % 1 appl topical ONCE 30 days hydrochlorothiazide 25 mg PO DAILY hydroxyzine HCl 25 mg PO BEDTIME PRN nicotine 1 patch transdermal DAILY norethindrone (contraceptive) (Chiquita) 0.35 mg PO DAILY 90 days sertraline 100 mg PO DAILY Do you need a note to return to daycare/school/sports/work: No HPI EP- Conjunctivitis Right Eye/Rash left neck 2 HPI0 Details Patient is a 33-year-old female came in to be evaluated for pink eye right side Patient says that she woke up with pink eye There is no blurring of vision there is no irritation there is no pain there is no tearing On examination patient has developed a subconjunctival hemorrhage Explained to her that it can happen sometimes even with sneezing. This is a benign condition and will resolve. Unless she starts having discharge or blurring of vision there is no need to worry, but if she does she is to let us know. She also have a rash on left side of her neck which is not getting better with the use of wwbi-hko-iyabsep cortisone Patient is requesting treatment for that I have sent Lotrisone cream to be used once a day for up to a month until rash resolves. [facility] Medical History Osteoarthritis of right hip Tobacco use disorder Lipoma of scalp Elevated platelet count Anxiety and depression Body mass index (BMI) of 39.0-39.9 in adult Abscess of right thigh Morbid obesity HTN (hypertension) Depression Surgical History Hx of wisdom tooth extraction Status post excision of lipoma (~01/04/23) History of incision and drainage (~06/2021) Family History Mother Mental health disorder Hypertension Father Hypertension Paternal Grandfather Colon cancer, Onset Age: 64 Social History Household Members: None Housing: Apartment Alcohol intake: current Alcohol intake frequency: a few times a month Alcohol type: wine and hard liquor Patient Tobacco Use Status: Current everyday Tobacco user Tobacco use type: Cigarette Cigarettes Per Day: 10 Years Smoked: 15 e-Cigarette/Vaping Use: Never Used Second Hand Smoke Exposure: Yes service: No Current occupational status: employed 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/[employer] Current occupational exposures/hazards: No Sexual orientation: Straight/Heterosexual Gender identity: Female Cognitive needs: No Hearing needs: No Vision needs: Yes (Contact lenses.) Female Reproductive History Menstrual Age of Menarche: 10 Review of Systems Const All systems reviewed & are unremarkable except as noted in HPI and below Physical Exam Vital Signs: Last Vital Signs Temp 97.1 F 02/06/24 09:40 Pulse 106 H 02/06/24 09:40 BP 118/70 02/06/24 09:40 Pulse Ox 98 02/06/24 09:40 Oxygen Delivery Method Room Air 02/06/24 09:40 BMI result Body Mass Index 43.4 Const General: no acute distress Orientation/consciousness: patient oriented x3 HEENT Other: Right eye subconjunctival hemorrhage medial aspect, ADRI, EOMI, no pain with palpation no discharge noticed Resp Effort & Inspection: normal respiratory effort and able to speak in complete sentences Skin Full body images: 2 1. Hensley raised rash with marginal scales size 1 in x 2 in Neuro General: patient oriented x3 Psych Mental Status: mental status grossly normal Assessment & Plan Assessment & Plan (1) Rash: Code(s): R21 - Rash and other nonspecific skin eruption (2) Subconjunctival hemorrhage of right eye: Code(s): H11.31 - Conjunctival hemorrhage, right eye Plan Patient is a 33-year-old female came in to be evaluated for pink eye right side Patient says that she woke up with pink eye There is no blurring of vision there is no irritation there is no pain there is no tearing On examination patient has developed a subconjunctival hemorrhage Explained to her that it can happen sometimes even with sneezing. This is a benign condition and will resolve. Unless she starts having discharge or blurring of vision there is no need to worry, but if she does she is to let us know. She also have a rash on left side of her neck which is not getting better with the use of vppd-yzi-dpidqyt cortisone Patient is requesting treatment for that I have sent Lotrisone cream to be used once a day for up to a month until rash resolves. Medications: New 2 clotrimazole-betamethasone 1-0.05 % 1 appl topical ONCE 45 grams 0RF 30 days Coding Level of Care Code Est Pt Level 4 (83878) Diagnoses Rash R21 Subconjunctival hemorrhage of right eye H11.31
== END 2024-02-06 09:57 | disposition home or self-care (01) ==
PROVIDERS: PCP Internal Medicine; Visit Provider Internal Medicine
DX: R21 Rash and other nonspecific skin eruption (principal); H11.31 Conjunctival hemorrhage, right eye
CPT/HCPCS: 99214

== ENCOUNTER 2024-03-31 06:00 | Outpatient (REF) | payer OTHER, SELFPAY ==
[2024-03-31 06:58] LABS: Hematocrit 43.4 % (37.0-47.0); Mean Corpuscular HGB Conc 34.6 g/dl (31.0-35.0); Mean Corpuscular Hemoglobin 30.4 pg (27.0-33.0); Mean Corpuscular Volume 87.9 fL (80.0-98.0); Mean Platelet Volume 9.3 fL (9.4-12.3); Platelet Count 377 X10*3/uL (160-400); Red Blood Count 4.94 X10*6/uL (4.20-5.50); Red Cell Distribution Width 12.5 % (11.0-16.0); White Blood Count 9.3 X10*3/uL (4.8-10.8)
[2024-03-31 07:19] LABS: Alanine Aminotransferase 16 U/L (0-31); Alkaline Phosphatase 76 U/L (39-117); Anion Gap 15 (12-20); Aspartate Amino Transferase 17 U/L (5-31); Bilirubin Direct 0.1 mg/dL (0.0-0.5); Bilirubin Total 0.3 mg/dL (0.0-1.0); Blood Urea Nitrogen 23 mg/dL (9-16); Calcium 9.8 mg/dL (8.4-10.2); Carbon Dioxide 23 mmol/L (22-29); Chloride 107 mmol/L (96-108); Cholesterol 150 mg/dL (<200); Estimated Glomerular Filt Rate 60; Glucose Random 105 mg/dL (60-115); HDL Cholesterol 44 mg/dL (>40); LDL Cholesterol Calculated 81 mg/dL (<100); Potassium 3.3 mmol/L (3.3-5.1); Sodium 142 mmol/L (135-145); Total Protein 6.9 g/dL (6.5-8.0); Triglycerides 128 mg/dL (<150)
[2024-03-31 07:34] LABS: Thyroid Stimulating Hormone 1.96 uIU/mL (0.32-4.0)
[2024-03-31 08:05] LABS: Appearance Urine Cloudy; Color Urine Yellow; Glucose Urine UA Negative (Negative); Leukocyte Esterase Urine Small (1+) (Negative); Nitrite Urine Negative (Negative); PH 5.5 (5.0-9.0); UMIC TRIGGER UA YES; Urine Blood Negative (Negative); Urine Ketones Negative (Negative); Urine Protein Negative (Neg-Trace)
[2024-03-31 08:39] LABS: Bacteria Urine 2+ (None Seen); Hyaline Casts Urine 0-2 /LPF (0-2); RBC Urine 0-2 /HPF (0-2); WBC Urine 0-5 /HPF (0-5)
== END 2024-03-31 06:01 | disposition home or self-care (01) ==
LOC: HO.LAB 06:00
PROVIDERS: PCP Internal Medicine; Visit Provider Internal Medicine
DX: E66.01 Morbid (severe) obesity due to excess calories (principal); Z68.42 Body mass index [BMI] 45.0-49.9, adult; F41.9 Anxiety disorder, unspecified; F32.A Depression, unspecified; D75.839 Thrombocytosis, unspecified
CPT/HCPCS: 36415; 80048; 80061; 80076; 81001; 81003; 84443; 85027

== ENCOUNTER 2024-04-03 13:19 | Outpatient (AMB) | payer OTHER, SELFPAY ==
[2024-04-03 13:19] VITALS: BP 132/86; PULSE 102; O2SAT 98; BMI 41.3
--- NOTE | 2024-04-03 13:19 | A.OFFPC_ITS ---
Vital Signs 04/03/24 13:19 Height 5 ft 3 in Weight 233 lb 0.5 oz BMI 41.3 BP 132/86 Blood Pressure Location Lt brachial Position Sitting Pulse 102 H Pulse Source Pulse Oximeter Pulse Oximetry (%) 98 Oxygen Delivery Method Room Air Intake Visit Reasons: 6m f/u Beer Cooler Required: No Allergies No Known Allergies [No Known Allergies*] Allergy (Verified 04/03/24 14:08) Medication List - Last Reconciled 04/03/24 by Chris Bolaños MD amlodipine 5 mg PO DAILY clotrimazole-betamethasone 1-0.05 % 1 appl topical ONCE 30 days hydrochlorothiazide 25 mg PO DAILY nicotine 1 patch transdermal DAILY norethindrone (contraceptive) (Chiquita) 0.35 mg PO DAILY 90 days sertraline 100 mg PO DAILY trazodone 100 mg PO BEDTIME PRN 30 days Tobacco use date assessed: 04/03/24 Dental Screening Dental Screen Date: 09/19/23 HPI 6m f/u HPI Details 33-year-old presents to the office to chapin tate her medical condition. Patient is not sleeping well. She is very restless at night. Patient has been taking hydroxyzine for many years. She is wondering if an alternative could be prescribed. She also has a rash on the upper side of the neck. Had a similar rash on the left side of the neck and was treated at the urgent care. Patient would like a similar treatment again. Patient has lost 27 lb since last visit. She reports she has been eating healthy. Continues to have pain in the left hip. Has been trying Advil with minimal relief. Patient is also having intermittent cellulitis and discomfort in the perianal area. She does not want the area to be examined but would like a referral to a surgeon. [facility] Medical History Osteoarthritis of right hip Tobacco use disorder Lipoma of scalp Elevated platelet count Anxiety and depression Body mass index (BMI) of 39.0-39.9 in adult Abscess of right thigh Morbid obesity HTN (hypertension) Depression Surgical History Hx of wisdom tooth extraction Status post excision of lipoma (~01/04/23) History of incision and drainage (~06/2021) Family History Mother Mental health disorder Hypertension Father Hypertension Paternal Grandfather Colon cancer, Onset Age: 64 Social History Household Members: None Housing: Apartment Alcohol intake: current Alcohol intake frequency: a few times a month Alcohol type: wine and hard liquor Patient Tobacco Use Status: Current everyday Tobacco user Tobacco use type: Cigarette Cigarettes Per Day: 10 Years Smoked: 15 e-Cigarette/Vaping Use: Never Used Second Hand Smoke Exposure: Yes service: No Current occupational status: employed 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 1. Little interest or pleasure in doing things: not at all 2. Feeling down, depressed, or hopeless: not at all 3. Trouble falling or staying asleep, or sleeping too much: not at all 4. Feeling tired or having little energy: not at all 5. Poor appetite or overeating: not at all 6. Feeling bad about yourself - or that you are a failure or have let yourself or your family down: not at all 7. Trouble concentrating on things, such as reading the newspaper or watching television: not at all 8. Moving or speaking so slowly that other people could have noticed. Or the opposite - being so fidgety or restless that you have been moving around a lot more than usual: not at all 9. Thoughts that you would be better off or of hurting yourself in some way: not at all Total score: 0 Depression Screening Interpretation: Negative Depression Screening Done: Yes Source: Developed by Drs. Samuel Dasilva, Noni Espinoza, Sal Bunch and colleagues, with an educational sarah from [employer]. Thrive Questionnaire Date Thrive assessed: 11/14/22 AUDIT C Alcohol Use Questionnaire (AUDIT-C) 1. How often do you have a drink containing alcohol?: 2-4 times a month 2. How many drinks containing alcohol do you have on a typical day when you are drinking?: 1 or 2 3. How often do you have six or more drinks on one occasion?: Never Total Score: 2 Score Reviewed/Action Taken: No DONALDO-7 AMB Questionnaire DONALDO-7 Date DONALDO - 7 assessed: 04/03/24 Feeling nervous, anxious, or on edge: 0 = Not at all Not being able to stop or control worryin = Not at all Worrying too much about different things: 0 = Not at all Trouble relaxin = Not at all Being so restless that it is hard to sit still: 0 = Not at all Becoming easily annoyed or irritable: 0 = Not at all Feeling afraid as if something awful might happen: 0 = Not at all Total DONALDO-7 score (0-4 normal; 5-9 mild; 10-14 moderate; 15-21 severe): 0 Source: Developed by Drs. Samuel Dasilva, Noni Espinoza, Sal Bunch and colleagues, with an educational sarah from [employer]. DONALDO-7 Assessment Billing DONALDO-7 Assessment Tool: DONALDO-7 Assessment 32219 Physical exam (Primary Care) Vital Signs: Last Vital Signs Pulse 102 H 04/03/24 13:19 BP 132/86 04/03/24 13:19 Pulse Ox 98 04/03/24 13:19 Oxygen Delivery Method Room Air 04/03/24 13:19 BMI result Body Mass Index 41.3 Tobacco/Smoking Status: Tobacco use Status Tobacco use date assessed 04/03/24 04/03/24 13:26 Patient Tobacco Use Status Current everyday Tobacco 04/03/24 13:26 Tobacco use type Cigarette 04/03/24 13:26 e-Cigarette/Vaping Use Never Used 04/03/24 13:26 PHQ-9: PHQ-9 Score PHQ-9: Total score 0 04/03/24 13:26 Depression Screening Interpretation: Negative Thrive Assessment: Date of Thrive Assessment Date Thrive assessed 11/14/22 04/03/24 13:26 Const General: cooperative and healthy appearing Nutritional Appearance: well nourished Orientation/consciousness: patient oriented x3 Limitations: no limitations HENMT Head: Yes normal to inspection Eyes General: appearance normal, both eyes and all related structures Neck Neck: Yes normal visual inspection Chest Chest palpation & inspection: normal palpation of entire chest wall Resp Effort & Inspection: normal respiratory effort Skin Other: Neck: Erythematous rash near the right clavicle no overlying scales, blisters. Neuro General: patient oriented x3 Assessment and Plan Assessment & Plan (1) Insomnia: Code(s): G47.00 - Insomnia, unspecified Plan: Hydroxyzine has been discontinued. Trazodone added in place. (2) Rash: Code(s): R21 - Rash and other nonspecific skin eruption Plan: Nonspecific irritation in the neck. Hydrocortisone cream prescribed. (3) Morbid obesity: Code(s): E66.01 - Morbid (severe) obesity due to excess calories Plan: Counseling on the importance of diet and exercise done. (4) Osteoarthritis of right hip: Code(s): M16.11 - Unilateral primary osteoarthritis, right hip Plan: Patient was advised to take extra-strength Tylenol. Importance of exercise and stretching explained. (5) Perianal cellulitis: Code(s): K61.0 - Anal abscess Plan: Surgical appointment requested. Orders: Referrals General Surgery Referral K61.0 - Anal abscess Medications: New trazodone 100 mg PO BEDTIME PRN 30 tabs 1RF sleep 30 days Refilled clotrimazole-betamethasone 1-0.05 % 1 appl topical ONCE 45 grams 0RF 30 days Discontinued hydroxyzine HCl Discontinued Reason: Doctor's Order 25 mg PO BEDTIME PRN 30 tabs 2RF in somnia G47.00 - Insomnia, unspecified Coding Level of Care Code Est Pt Level 4 (44000) Complex EM visit Add On G2211 Diagnoses Insomnia G47.00 Rash R21 Morbid obesity E66.01 Osteoarthritis of right hip M16.11 Perianal cellulitis K61.0 Additional Codes DONALDO-7 Assessment Billing - DONALDO-7 Assessment Tool: DONALDO-7 Assessment 94752 ([id number])
== END 2024-04-03 13:50 | disposition home or self-care (01) ==
PROVIDERS: PCP Internal Medicine; Visit Provider Internal Medicine
DX: G47.00 Insomnia, unspecified (principal); R21 Rash and other nonspecific skin eruption; E66.01 Morbid (severe) obesity due to excess calories; Z68.41 Body mass index [BMI] 40.0-44.9, adult; M16.11 Unilateral primary osteoarthritis, right hip; K61.0 Anal abscess
CPT/HCPCS: 99214; G2211

== ENCOUNTER 2024-04-09 09:55 | Outpatient (AMB) | payer OTHER, SELFPAY ==
--- NOTE | 2024-04-09 10:25 | A.OFFVIS_ITS ---
Vital Signs 04/09/24 10:29 Height 5 ft 3 in Weight 233 lb 4 oz BMI 41.3 Intake Visit Reasons: Anal abscess Intake Note: This patient presents for Anal abscess. Pt c/o; reports perianal abscess, reports pain, reports drainage per ? rectum, reports was not prescribed abx. Support Services Manager Required: No Dancing Teacher: Dancing Teacher offered & declined Accompanied by: Self / Same As Patient Allergies No Known Allergies [No Known Allergies*] Allergy (Verified 04/09/24 10:31) Medication List - Last Reconciled 04/09/24 by Mike Wolf MD amlodipine 5 mg PO DAILY clotrimazole-betamethasone 1-0.05 % 1 appl topical ONCE 30 days hydrochlorothiazide 25 mg PO DAILY nicotine 1 patch transdermal DAILY norethindrone (contraceptive) (Hciquita) 0.35 mg PO DAILY 90 days sertraline 100 mg PO DAILY trazodone 100 mg PO BEDTIME PRN 30 days HPI HPI Anal abscess: Details: [age] year old female here because of a recurrent perianal swelling. She says that for the past 10-12 years, she has had this area to the left of her anus that swells up and drains. She says that this seems to be draining more frequently now She says she never told anyone in the past because she was ?embarrassed?. She now says that because this has been bothering her more, she is trying to take care of this. She says that often times when she presses on this area, she would notice drain age coming out through her anus. [facility] Medical History (Updated 04/09/24 @ 11:11 by Mike Wolf MD) Anal fistula Osteoarthritis of right hip Tobacco use disorder Lipoma of scalp Elevated platelet count Anxiety and depression Body mass index (BMI) of 39.0-39.9 in adult Abscess of right thigh Morbid obesity HTN (hypertension) Depression Surgical History Hx of wisdom tooth extraction Status post excision of lipoma (~01/04/23) History of incision and drainage (~06/2021) Family History Mother Mental health disorder Hypertension Father Hypertension Paternal Grandfather Colon cancer, Onset Age: 64 Social History Household Members: None Housing: Apartment Alcohol intake: current Alcohol intake frequency: a few times a month Alcohol type: wine and hard liquor Patient Tobacco Use Status: Current everyday Tobacco user Tobacco use type: Cigarette Cigarettes Per Day: 10 Years Smoked: 15 e-Cigarette/Vaping Use: Never Used Second Hand Smoke Exposure: Yes service: No Current occupational status: employed 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[employer] Current occupational exposures/hazards: No Sexual orientation: Straight/Heterosexual Gender identity: Female Cognitive needs: No Hearing needs: No Vision needs: Yes (Contact lenses.) Female Reproductive History Menstrual Age of Menarche: 10 Review of Systems Const Denies chills and Denies fever(s) Card Denies chest pain, Denies dyspnea and Denies dyspnea on exertion Resp Denies cough, Denies dyspnea and Denies dyspnea on exertion GI Denies hematochezia and Denies change in bowel habits Denies hematuria Musc Denies back pain and Denies limited range of motion Neuro Denies focal weakness and Denies convulsions Psych Denies depression and Denies mood swings Physical Exam Vital Signs: BMI result Body Mass Index 41.3 Const General: comfortable and no acute distress Orientation/consciousness: patient oriented x3 Neck Neck: Yes no lymphadenopathy Resp Auscultation: clear to auscultation bilaterally Cardio Rhythm: regular rhythm GI Other: Rectal exam shows a sinus on the left perianal area, about 3 cm from the verge, with a cord-like induration all the way to the inside of the anus radially Palpation (GI): Soft to palpation, nontender and no guarding Neuro General: patient oriented x3 Assessment & Plan Assessment & Plan (1) Anal fistula: Code(s): K60.3 - Anal fistula Category: Medical Plan: Findings are consistent with an anal fistula. I explained to her that it would be best to proceed with a exam under anesthesia and possible seton placement or fistulotomy. I discussed with the technique of this procedure. I reviewed the risks including but not limited to bleeding, infections, postop pain, as well as the benefits and alternatives. I also explained to her what to expect postoperatively. She says she understands and wants to proceed. Coding Level of Care Code Est Pt Level 3 (20665) Diagnoses Anal fistula K60.3
[2024-04-09 10:29] VITALS: BMI 41.3
== END 2024-04-09 11:09 | disposition home or self-care (01) ==
LOC: HO.HGS 09:55
PROVIDERS: PCP Internal Medicine; Visit Provider Surgery
DX: K60.3 Anal fistula (principal)
CPT/HCPCS: 99214

== ENCOUNTER → 2024-04-09 09:55 | Outpatient (BNVA) | payer OTHER, SELFPAY | PROVIDERS: PCP Internal Medicine; Visit Provider Surgery | DX: K60.3 Anal fistula (principal) | CPT/HCPCS: 99212 ==

== ENCOUNTER 2024-04-29 06:04 | Day surgery (SDC) | payer OTHER, SELFPAY ==
[2024-04-25 13:29] VITALS: BMI 41.3
--- NOTE | 2024-04-28 09:46 | HO.ANESPROP2 ---
Documented by User: Bettina Snyder NP 04/28/24 09:47 HPI - Anesthesia Eval Consult details Narrative: 33yo F for EUA, seton placement, possible fistulotomy PMFSH Active Problems Active Problems: All Active Problems Anal fistula (Acute) Subconjunctival hemorrhage of right eye (Acute) Rash (Acute) Internal derangement of right shoulder (Acute) Osteoarthritis of right hip (Acute) Tobacco use disorder (Acute) Daytime somnolence (Acute) Cervical radicular pain (Acute) Myofascial pain (Acute) Morbid obesity with BMI of 45.0-49.9, adult (Acute) Trapezius muscle strain (Acute) Anxiety and depression (Acute) Elevated platelet count (Acute) Thrombocytosis (Chronic) Lipoma of scalp (Acute) Low vitamin D level (Acute) Low back pain (Acute) Morbid obesity with BMI of 40.0-44.9, adult (Acute) Right shoulder pain (Acute) Routine screening for STI (sexually transmitted infection) (Acute) Insomnia (Acute) Surveillance for control, oral contraceptives (Acute) Scalp lump (Acute) Depression (Acute) Current smoker (Acute) Difficulty concentrating (Acute) Encounter to establish care (Acute ~09/19/21) HTN (hypertension) (Acute) Abscess (Acute) Abscess of right thigh (Acute) Morbid obesity (Acute) Abscess of skin (Acute) STD exposure (Acute) Depression (Acute) Past Medical History Medical History (Updated 04/09/24 @ 11:11 by Mike Wolf MD) Anal fistula Osteoarthritis of right hip Tobacco use disorder Lipoma of scalp Elevated platelet count Anxiety and depression Body mass index (BMI) of 39.0-39.9 in adult Abscess of right thigh Morbid obesity HTN (hypertension) Depression Family History Family History Mother Mental health disorder Hypertension Father Hypertension Paternal Grandfather Colon cancer, Onset Age: 64 Family history of problems with anesthesia: No Surgical History Surgical History Hx of wisdom tooth extraction Status post excision of lipoma (~01/04/23) History of incision and drainage (~06/2021) History of Problems with Anesthesia: No Social History Social History Household Members: None Housing: Apartment Alcohol intake: current Alcohol intake frequency: holidays/special occasions only Alcohol type: wine and hard liquor Patient Tobacco Use Status: Current everyday Tobacco user Tobacco use type: Cigarette Cigarettes Per Day: 10 Years Smoked: 15 e-Cigarette/Vaping Use: Never Used Second Hand Smoke Exposure: Yes service: No Current occupational status: employed 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[employer] Current occupational exposures/hazards: No Sexual orientation: Straight/Heterosexual Gender identity: Female Cognitive needs: No Hearing needs: No Vision needs: Yes (Contact lenses.) Meds Allergies Allergy/AdvReac Type Severity Reaction Status Date / Time No Known Allergies Allergy Verified 04/09/24 10:31 [No Known Allergies*] Exam Height,Weight and Vital Signs: Height 5 ft 3 in Weight 105.687 kg Pertinent Lab Results Pertinent Lab Results: Laboratory Tests 03/31/24 06:08 WBC 9.3 Hgb 15.0 Hct 43.4 Plt Count 377 Sodium 142 Potassium 3.3 Chloride 107 Carbon Dioxide 23 BUN 23 H Creatinine 1.05 Assessment and Plan Assessment Anesthesia Assessment: Chart Reviewed Final Anesthetic Review Family History of Problems with Anesthesia: No History of Problems with Anesthesia: No Documented by User: Brandon Qureshi MD 04/29/24 07:24 [facility] Past Medical History Medical History (Updated 04/09/24 @ 11:11 by Mike Wolf MD) Anal fistula Osteoarthritis of right hip Tobacco use disorder Lipoma of scalp Elevated platelet count Anxiety and depression Body mass index (BMI) of 39.0-39.9 in adult Abscess of right thigh Morbid obesity HTN (hypertension) Depression Patient : No Family History Family History Mother Mental health disorder Hypertension Father Hypertension Paternal Grandfather Colon cancer, Onset Age: 64 Surgical History Surgical History Hx of wisdom tooth extraction Status post excision of lipoma (~01/04/23) History of incision and drainage (~06/2021) Social History Social History Household Members: None Housing: Apartment Alcohol intake: current Alcohol intake frequency: holidays/special occasions only Alcohol type: wine and hard liquor Patient Tobacco Use Status: Current everyday Tobacco user Tobacco use type: Cigarette Cigarettes Per Day: 10 Years Smoked: 15 e-Cigarette/Vaping Use: Never Used Second Hand Smoke Exposure: Yes service: No Current occupational status: employed 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[employer] Current occupational exposures/hazards: No Sexual orientation: Straight/Heterosexual Gender identity: Female Cognitive needs: No Hearing needs: No Vision needs: Yes (Contact lenses.) Meds Allergies Allergy/AdvReac Type Severity Reaction Status Date / Time No Known Allergies Allergy Verified 04/09/24 10:31 [No Known Allergies*] Exam Airway Mallampati Class: I TM Dist: <=3cm Neck ROM: Full Loose/Missing/Broken Teeth: No Heart: ok Lungs: ok Assessment and Plan Assessment Anesthesia Assessment: Anesthesia Plan Discussed Final Anesthetic Review NPO: Yes ASA Class: III Final Preanesthetic Review: No Changes in Pt Med Stat, Meds/Allgs Chart Reviewed and Consent Obtained/Reviewed Patient Risk: Intermediate Procedure Risk: Intermediate Anesthetic Plan Anesthetic Plan: GA, Agree w/ Assess. and Plan and Other Disposition: Standard PACU
[2024-04-29 06:14] VITALS: BP 143/80; PULSE 102; RESP 20; TEMP 36.6; O2SAT 97; BMI 41.6
[2024-04-29 06:25] LABS: UPreg QC Valid YES; Urine Pregnancy NEGATIVE (NEGATIVE)
[2024-04-29] MEDS: Lactated Ringers 1,000 ML 100 ML IVCONT (06:40)
--- NOTE | 2024-04-29 07:16 | MHC.SHP ---
Pre-Procedural Eval Section A - 24 Hr Update-Section A only Date of Service: 04/29/24 The patient is an INPATIENT: No Changes since office visit: No Cold of Flu in the past 2 weeks, No New Medical Problems, No Changes in Medication and No Patient answered all questions The patient has been examined within 24 hours of the surgical procedure. The History & Physical has been completed within 30 days and I have reviewed it.: Yes Section B - Complete if H&P > 30 days Chief Complaint: Anal fistula Allergies: Allergies Allergy/AdvReac Type Severity Reaction Status Date / Time No Known Allergies Allergy Verified 04/09/24 10:31 [No Known Allergies*] Plan I have reviewed the history and physical and performed a pertinent physical examination on my patient. No changes have occurred unless specified. Time Spent With Patient Time: Total time managing care of this patient today ____ minutes.
--- NOTE | 2024-04-29 08:08 | W.PM.OPN ---
Operative Note Operative Note Date of Service: 04/29/24 Narrative: Preop diagnosis: Anal fistula Postop diagnosis: The same Procedure: Exam under anesthesia, placement of seton for an anal fistula, partial fistulotomy Surgeon: Mike Wolf MD Asst: VITALIY Bragg Student The patient is a 33 year old female with a long history of recurrent swelling, and drainage from perianal area on the left side. Examination was consistent with a anal fistula She understood the technique of the planned procedure. She was aware of the risks, benefits, and alternatives. She was brought to the operating room. She was placed in prone jacob-knife position under general anesthesia via laryngeal mask airway. The buttocks were retracted with wide tape laterally. The perianal area was prepped and draped in the usual sterile fashion. A surgical time-out was done. The patient received Cefotan 2 g IV preoperatively. I infiltrated the perianal area with lidocaine 1%. Examination of the perianal area revealed an external sinus on the left anterolateral aspect about 3 cm from the verge. I inserted the Tena Patrick retractor. I examined the anal canal circumferentially. There were no lesions in the anal canal. There was note of the internal sinus that was obvious in the anterior aspect long the dentate line. I was able to easily pass probe from the external sinus to the distal sinus. I passed a yellow vessel loop as a seton he has this probe through the fistulous tract. I looped the seton and tied this with silk 3-0 ties. I shortened the fistulous tract by dividing the overlying skin and subcutaneous tissue overlying the tract towards external sinus. I cauterized the tract. I did not do a complete fistulotomy in view of the presence of sphincter fibers towards the internal sinus opening Hemostasis was observed. I then infiltrated the perianal area with Marcaine 0.5% for postop analgesia The procedure was then completed The patient tolerated the procedure well. There were no immediate complications. Initial and final counts of sponges and instruments were correct. Estimated blood loss was less than 5 cc. The patient was extubated without difficulty and transferred to the recovery room with stable vital signs.
[2024-04-29 08:13] VITALS: BP 122/84; PULSE 81; RESP 16; TEMP 36.4; O2SAT 95
[2024-04-29 08:18] VITALS: BP 103/72; PULSE 77; RESP 16; O2SAT 94
[2024-04-29 08:23] VITALS: BP 104/64; PULSE 66; RESP 16; O2SAT 96
[2024-04-29 08:28] VITALS: BP 102/65; PULSE 70; RESP 16; O2SAT 97
[2024-04-29 08:43] VITALS: BP 100/36; PULSE 72; RESP 16; TEMP 36.4; O2SAT 99
== END 2024-04-29 09:07 | disposition home or self-care (01) ==
PROVIDERS: Nurse Practitioner; PCP Internal Medicine; Visit Provider Surgery
PROC: (CPT 46280; principal; 2024-04-29 07:30)
DX: K60.3 Anal fistula (principal); I10 Essential (primary) hypertension; E66.01 Morbid (severe) obesity due to excess calories; Z68.39 Body mass index [BMI] 39.0-39.9, adult; F41.8 Other specified anxiety disorders; Z79.899 Other long term (current) drug therapy; F17.210 Nicotine dependence, cigarettes, uncomplicated
CPT/HCPCS: 46280; 81025; J2250; J2704; J2795; J3010

== ENCOUNTER → 2024-04-29 06:04 | Outpatient (BNV) | payer OTHER, SELFPAY | PROVIDERS: PCP Internal Medicine; Visit Provider Surgery | DX: K60.3 Anal fistula (principal) | CPT/HCPCS: 46280 ==

== ENCOUNTER 2024-05-12 15:46 | Outpatient (AMB) | payer OTHER, SELFPAY ==
--- NOTE | 2024-05-12 15:47 | A.OFFVIS_ITS ---
Intake Visit Reasons: S/P EUA, seton placement, poss fistulotomy Intake Note: This patient presents for post-op assessment status post Exam under anesthesia, placement of seton for an anal fistula, partial fistulotomy. Pt c/o; reports no complaints. 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 She tolerated procedure well. She currently denies significant complaints. She says she actually feels ?great?. She denies significant pain. [facility] Medical History Anal fistula Osteoarthritis of right hip Tobacco use disorder Lipoma of scalp Elevated platelet count Anxiety and depression Body mass index (BMI) of 39.0-39.9 in adult Abscess of right thigh Morbid obesity HTN (hypertension) Depression Surgical History Hx of surgical procedure (~04/29/24) Hx of wisdom tooth extraction Status post excision of lipoma (~01/04/23) History of incision and drainage (~06/2021) Family History Mother Mental health disorder Hypertension Father Hypertension Paternal Grandfather Colon cancer, Onset Age: 64 Social History Household Members: None Housing: Apartment Alcohol intake: current Alcohol intake frequency: holidays/special occasions only Alcohol type: wine and hard liquor Comment: counts correct Patient Tobacco Use Status: Current everyday Tobacco user Tobacco use type: Cigarette Cigarettes Per Day: 10 Years Smoked: 15 e-Cigarette/Vaping Use: Never Used Second Hand Smoke Exposure: Yes service: No Current occupational status: employed 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[employer] Current occupational exposures/hazards: No Sexual orientation: Straight/Heterosexual Gender identity: Female Cognitive needs: No Hearing needs: No Vision needs: Yes (Contact lenses.) Female Reproductive History Menstrual Age of Menarche: 10 Review of Systems Const Denies body aches, Denies chills and Denies fever(s) Card Denies chest pain Resp Denies cough Details: Blood on wiping after BMs Physical Exam Const General: comfortable and no acute distress Resp Effort & Inspection: normal respiratory effort GI Other: Rectal exam shows the seton to be in place on the left, no new induration or sinuses Assessment & Plan Assessment & Plan (1) Anal fistula: Code(s): K60.3 - Anal fistula Category: Medical Plan: Status post seton placement. She is doing well postoperatively. Her seton is in place. There were no new areas of induration I did not tighten the seton today but I will see her in the office in about 1 month and plan on tightening this She understands the plan well. Coding Level of Care Code Global (01950) Diagnoses Anal fistula K60.3
== END 2024-05-12 15:58 | disposition home or self-care (01) ==
PROVIDERS: PCP Internal Medicine; Visit Provider Surgery
DX: K60.3 Anal fistula (principal)
CPT/HCPCS: 99024

== ENCOUNTER → 2024-05-12 15:46 | Outpatient (BNVA) | payer OTHER, SELFPAY | PROVIDERS: PCP Internal Medicine; Visit Provider Surgery | DX: K60.3 Anal fistula (principal) | CPT/HCPCS: 99212 ==

== ENCOUNTER 2024-06-05 13:41 | Outpatient (AMB) | payer OTHER, SELFPAY ==
--- NOTE | 2024-06-05 13:41 | A.OFFVIS_ITS ---
Vital Signs 06/05/24 13:44 Height 5 ft 2 in Intake Visit Reasons: i month follow up s/p EUA seton Intake Note: This patient presents for one month follow-up for seton. Pt c/o; reports drainage. 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 She denies any complaints at this time [facility] Medical History Anal fistula Osteoarthritis of right hip Tobacco use disorder Lipoma of scalp Elevated platelet count Anxiety and depression Body mass index (BMI) of 39.0-39.9 in adult Abscess of right thigh Morbid obesity HTN (hypertension) Depression Surgical History Hx of surgical procedure (~04/29/24) Hx of wisdom tooth extraction Status post excision of lipoma (~01/04/23) History of incision and drainage (~06/2021) Family History Mother Mental health disorder Hypertension Father Hypertension Paternal Grandfather Colon cancer, Onset Age: 64 Social History Household Members: None Housing: Apartment Alcohol intake: current Alcohol intake frequency: holidays/special occasions only Alcohol type: wine and hard liquor Comment: counts correct Patient Tobacco Use Status: Current everyday Tobacco user Tobacco use type: Cigarette Cigarettes Per Day: 10 Years Smoked: 15 e-Cigarette/Vaping Use: Never Used Second Hand Smoke Exposure: Yes service: No Current occupational status: employed 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[employer] Current occupational exposures/hazards: No Sexual orientation: Straight/Heterosexual Gender identity: Female Cognitive needs: No Hearing needs: No Vision needs: Yes (Contact lenses.) Female Reproductive History Menstrual Age of Menarche: 10 Review of Systems Const Denies chills and Denies fever(s) Physical Exam Const General: comfortable and no acute distress GI Other: Rectal exam shows the seton to be in place, seton is loose around the fistula tract, the fistulous tract appears a little shorter Assessment & Plan Assessment & Plan (1) Anal fistula: Code(s): K60.3 - Anal fistula Category: Medical Plan: Status post seton. I tightened the seton using a silk 2-0 tie. This is now snug again around the remaining fistula tract. I will see her again in the office next month. Coding Level of Care Code Global (86589) Diagnoses Anal fistula K60.3
== END 2024-06-05 13:58 | disposition home or self-care (01) ==
PROVIDERS: PCP Internal Medicine; Visit Provider Surgery
DX: K60.30 Anal fistula, unspecified (principal)
CPT/HCPCS: 99024

== ENCOUNTER → 2024-06-05 13:41 | Outpatient (BNVA) | payer OTHER, SELFPAY | PROVIDERS: PCP Internal Medicine; Visit Provider Surgery | DX: K60.30 Anal fistula, unspecified (principal); Z48.815 Encounter for surgical aftercare following surgery on the digestive system; Z97.8 Presence of other specified devices | CPT/HCPCS: 99212 ==

== ENCOUNTER 2024-06-12 12:45 | Outpatient (REF) | payer OTHER, SELFPAY | END 2024-06-12 12:46 | disposition home or self-care (01) | LOC: HO.LAB 12:45 | PROVIDERS: PCP Internal Medicine; Visit Provider Advanced Practice Midwife | DX: Z01.419 Encounter for gynecological examination (general) (routine) without abnormal findings (principal); N89.8 Other specified noninflammatory disorders of vagina; Z79.3 Long term (current) use of hormonal contraceptives | CPT/HCPCS: 81003; 99395 ==

== ENCOUNTER 2024-06-12 12:45 | Outpatient (AMB) | payer OTHER, SELFPAY ==
--- NOTE | 2024-06-12 12:49 | A.OFFVIS_ITS ---
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 Doing well with concerns: She reports a vaginal odor. History of recent anal fissure repair. She tries to eat healthy and stays active with exercise. Doing well on progesterone only pills and needs refills. She denies any risk factors to progesterone only pill use. Currently is sexually active. STI screening offered; she accepts. Denies family history of breast or ovarian. FH colon cancer. Last pap smear 2021, negative. Current tobacco user, not ready to quit. [facility] Medical History Anal fistula Osteoarthritis of right hip Tobacco use disorder Lipoma of scalp Elevated platelet count Anxiety and depression Body mass index (BMI) of 39.0-39.9 in adult Abscess of right thigh Morbid obesity HTN (hypertension) Depression Surgical History Hx of surgical procedure (~04/29/24) Hx of wisdom tooth extraction Status post excision of lipoma (~01/04/23) History of incision and drainage (~06/2021) Family History Mother Mental health disorder Hypertension Father Hypertension Paternal Grandfather Colon cancer, Onset Age: 64 Social History Household Members: None Housing: Apartment Alcohol intake: current Alcohol intake frequency: holidays/special occasions only Alcohol type: wine and hard liquor Comment: counts correct Patient Tobacco Use Status: Current everyday Tobacco user Tobacco use type: Cigarette Cigarettes Per Day: 10 Years Smoked: 15 e-Cigarette/Vaping Use: Never Used Second Hand Smoke Exposure: Yes service: No Current occupational status: employed 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[employer] Current occupational exposures/hazards: No Sexual orientation: Straight/Heterosexual Gender identity: Female Cognitive needs: No Hearing needs: No Vision needs: Yes (Contact lenses.) Female Reproductive History Menstrual Age of Menarche: 10 Duration of menses: 3-5 days Date of last menstrual period: 05/25/24 control method: pills Total pregnancies: 1 Ab induced: 1 Date of last pap smear: 01/09/22 (neg pap and hpv) Review of Systems Const All systems reviewed & are unremarkable except as noted in HPI and below Reports as per HPI Eyes Reports no additional complaints ENT Reports no additional complaints Card Reports no additional complaints Resp Reports no additional complaints GI Reports as per HPI and Reports no additional complaints Reports as per HPI Musc Reports no additional complaints Skin/Breast Reports as per HPI Neuro Reports no additional complaints Psych Reports no additional complaints Endo Reports no additional complaints Jonatan/Lymph Reports no additional complaints Aller/Immun Reports no additional complaints Physical Exam Vital Signs: Last Vital Signs BP 106/64 06/12/24 12:50 BMI result Body Mass Index 42.1 Const General: cooperative, healthy appearing, no acute distress, well developed and alert Orientation/consciousness: patient oriented x3 HEENT Head: Yes normal to inspection Eyes General: appearance normal, both eyes and all related structures Neck Neck: Yes normal visual inspection Thyroid: Thyroid normal Chest Chest palpation & inspection: normal inspection of the chest and other (no puckering, dimpling, peau de orange, retraction, discharge, masses) Breast/axilla inspection: normal inspection of the breasts Breast/axilla palpation: normal palpation of the breasts Resp Effort & Inspection: normal respiratory effort GI Inspection: Yes normal to inspection Palpation (GI): Soft to palpation Rectal Exam - Female: deferred and Fistula present (GI) (Repair site) General: Yes bladder normal to palpation External Female Exam: normal external appearance and normal appearance of the urethra Speculum Exam - Vagina: normal appearance of the vagina, normal palpation and normal vaginal discharge Speculum Exam - Cervix: normal appearance of the cervix and normal palpation Bimanual exam- vagina & uterus: normal bimanual exam, normal palpation, uterine size normal, bladder normal to palpation, normal palpation and non-tender Bimanual Exam- Adnexa, other: no masses Skin General skin exam: no rashes or lesions noted Rashes: no rashes Neuro General: patient oriented x3 Cognition (Neuro): normal cognition Extrem General: Yes normal to inspection Psych Attitude: cooperative Thought process: Normal thought process present Results AMB Urinalysis, Automated UA Leukoctes 0 Vern/uL Last Edit by Martha Diane Ruthie on 06/12/24 13:05 UA Nitrite Negative Last Edit by Martha Diane [facility] on 06/12/24 13:05 UA Urobilinogen 0 mg/dL Last Edit by Martha Diane [facility] on 06/12/24 13:0 5 UA Protein 0 mg/dL Last Edit by Martha Diane [facility] on 06/12/24 13:05 UA pH 6.0 Last Edit by Martha Diane [facility] on 06/12/24 13:05 UA Blood 0 Luis E/uL Last Edit by Martha Diane [facility] on 06/12/24 13:05 UA Specific [place] 1.015 Last Edit by Martha Diane [facility] on 06/12/24 13:05 UA Ketone Negative Last Edit by Martha Diane [facility] on 06/12/24 13:05 UA Bilirubin 0 mg/dL Last Edit by Martha Diane [facility] on 06/12/24 13:05 UA Glucose 0 mg/dL Last Edit by Martha Diane [facility] on 06/12/24 13:05 Results Reviewed Results Reviewed: Laboratory Last Values Urine pH (Auto) 6.0 06/12/24 13:00 Specific [place] (Auto) 1.015 06/12/24 13:00 Urine Protein (Auto) 0 mg/dL 06/12/24 13:00 Glucose (UA)(Auto) 0 mg/dL 06/12/24 13:00 Urine Ketones (Auto) Negative 06/12/24 13:00 Urine Blood (Auto) 0 Luis E/uL 06/12/24 13:00 Urine Nitrite (Auto) Negative 06/12/24 13:00 Urine Bilirubin (Auto) 0 mg/dL 06/12/24 13:00 Urine Urobilinogen (Auto) 0 mg/dL 06/12/24 13:00 Leukocyte Esterase (Auto) 0 Vern/uL 06/12/24 13:00 Assessment & Plan Assessment & Plan (1) Encounter for well woman exam with routine gynecological exam: Code(s): Z01.419 - Encounter for gynecological examination (general) (routine) without abnormal findings Category: Medical Plan Discussed: Current recommendations for pap smears per ASCCP guidelines. Breast awareness and periodic breast exams. Maintain a healthy lifestyle including a well balanced diet and routine exercise. control hormone use warnings: go to ER if and loss of vision, blindness, severe headache, chest pain or difficulty breathing, severe abdominal pain, or any pain or swelling in an extremity. Rx for BC refill. Encouraged tobacco cessation. Patient verbalizes understanding and agrees to the plan of care. She was given opportunity to ask questions and all questions were answered to the best of my ability. 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 This note is constructed using voice recognition software. While every effort has been made to ensure accuracy, combo welder errors may have been included. Orders: Orders AMB Urinalysis Automated Today N89.8 - Other specified noninflammatory disorders of vagina Bacterial Vaginosis Panel Today N89.8 - Other specified noninflammatory disorders of vagina CT NG by PCR Today N89.8 - Other specified noninflammatory disorders of vagina Coding Level of Care Code Est Pt Prev Care 18-39y(98601) Diagnoses Encounter for well woman exam with routine gynecological exam Z01.419
[2024-06-12 12:50] VITALS: BP 106/64; BMI 42.1
== END 2024-06-12 14:30 | disposition home or self-care (01) ==
PROVIDERS: PCP Internal Medicine; Visit Provider Advanced Practice Midwife
DX: Z01.419 Encounter for gynecological examination (general) (routine) without abnormal findings (principal); N89.8 Other specified noninflammatory disorders of vagina
CPT/HCPCS: 99395

== ENCOUNTER 2024-06-12 13:34 | Outpatient (REF) | payer OTHER, SELFPAY ==
[2024-06-12 18:03] LABS: Bacterial Vaginosis PCR POSITIVE (Negative); Candida Group PCR NOT DETECTED (Not Detect); Candida glab krusei PCR DETECTED (Not Detect); Trichomonas vaginalis PCR NOT DETECTED (Not Detect)
[2024-06-12 18:35] LABS: CT PCR NOT DETECTED (Not Detect.); NG PCR NOT DETECTED (Not Detect.)
== END 2024-06-12 13:35 | disposition home or self-care (01) ==
LOC: HO.LNP 13:34
PROVIDERS: Visit Provider Advanced Practice Midwife
DX: N89.8 Other specified noninflammatory disorders of vagina (principal)
CPT/HCPCS: 0352U; 87491; 87591

== ENCOUNTER 2024-08-07 15:26 | Outpatient (AMB) | payer OTHER, SELFPAY ==
--- OUTSIDE RECORDS SUMMARY | 2024-08-07 15:30 | XMS_ITS ---
Author Organization [facility] Address [address] [place] [id number] Care Team Providers Care Pediatrician Active Practice Name Role Phone No, PCP Primary Care Provider UnavailMala Russell Unavailable [phone] Cheryl Bains Unavailable [phone] REASON FOR VISIT recall Medications Medication SIG (Take, Route, Fr equency, Duration) Notes Start Date End Date Status amLODIPine Active Hydrochlorothiazide Active norethindrone Active hydrOXYzine Active sertraline Active Encounters Encounter Location Date Provider Diagnosis [address] [id number] 09/25/2023 Cheryl Bains Plan Of Treatment No Information Progress Notes * Tori AVILA EDOB:[birth year] (34 yo F)Acc No.[id number]:09/25/2023 Dental Notes Patient:?Tori AVILA Provider:?Cheryl Bains :1990???Age:33 Y???Sex:Female D ate:09/25/2023 Address:[address] [place] [address] [address] [id number] Pcp:PCP No Subjective: * Chief Complaints: * ???1. Recall. * Medical History:? * Medications:?Taking sertrali ne , Taking norethindrone , Taking hydrOXYzine , Taking Hydrochlorothiazide , Taking amLODIPine Objective: * Vitals:? Assessment: Plan: * Treatment: * Images: Billing Information: * Visit Code:? * Procedure Codes:? * Electronic signature of Cheryl Bains on 08/07/2024 at 03:30 PM EST Sign off status: Pending * Provider:?Cheryl Bains Date:?09/25/2023 Generated for Girma anna/Madison/Barbara on:?08/07/2024 03:30 PM EST
[2024-08-07 15:32] VITALS: BP 130/77; PULSE 113; BMI 40.8
--- NOTE | 2024-08-07 15:32 | MHC.OFFVIS ---
Vital Signs 08/07/24 15:32 Height 5 ft 2 in Weight 223 lb BMI 40.8 BP 130/77 Blood Pressure Location Rt brachial Position Sitting Pulse 113 H Intake Visit Reasons: one month follow-up seton Intake Note: Patient here for 1m f/u seton. Patient c/o: no concerns. No changes in medical hx since last visit. Level Glass Vial Filler Required: No Accompanied by: Self / Same As Patient Allergies No Known Allergies [No Known Allergies*] Allergy (Verified 08/07/24 15:33) Medication List - Last Reconciled 08/08/24 by Mike Wolf MD amlodipine 5 mg PO DAILY fluconazole 150 mg PO ONCE 1 day hydrochlorothiazide 25 mg PO DAILY ibuprofen 600 mg PO Q6H PRN metronidazole 0.75%(37.5mg/5gram) 1 appful vaginal BEDTIME 5 days norethindrone (contraceptive) (Incassia) 0.35 mg PO DAILY sertraline 100 mg PO DAILY trazodone 100 mg PO BEDTIME PRN HPI HPI one month follow-up seton: Details: She is here for follow-up for anal fistula with a seton in place. She says that she has no significant drainage anymore. She denies any significant pain or any new induration. [facility] Medical History Anal fistula Osteoarthritis of right hip Tobacco use disorder Lipoma of scalp Elevated platelet count Anxiety and depression Body mass index (BMI) of 39.0-39.9 in adult Abscess of right thigh Morbid obesity HTN (hypertension) Depression Surgical History Hx of surgical procedure (~04/29/24) Hx of wisdom tooth extraction Status post excision of lipoma (~01/04/23) History of incision and drainage (~06/2021) Family History Mother Mental health disorder Hypertension Father Hypertension Paternal Grandfather Colon cancer, Onset Age: 64 Social History Household Members: None Housing: Apartment Alcohol intake: current Alcohol intake frequency: holidays/special occasions only Alcohol type: wine and hard liquor Comment: counts correct Patient Tobacco Use Status: Current everyday Tobacco user Tobacco use type: Cigarette Cigarettes Per Day: 10 Years Smoked: 15 e-Cigarette/Vaping Use: Never Used Second Hand Smoke Exposure: Yes service: No Current occupational status: employed 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/[employer] Current occupational exposures/hazards: No Sexual orientation: Straight/Heterosexual Gender identity: Female Cognitive needs: No Hearing needs: No Vision needs: Yes (Contact lenses.) Female Reproductive History Menstrual Age of Menarche: 10 Review of Systems Const Denies chills and Denies fever(s) Card Denies chest pain Resp Denies cough GI Denies abdominal pain Denies difficulty voiding Physical Exam Vital Signs: Last Vital Signs Pulse 113 H 08/07/24 15:32 BP 130/77 08/07/24 15:32 BMI result Body Mass Index 40.8 Const General: comfortable and no acute distress Resp Effort & Inspection: normal respiratory effort Cardio Rate: regular rate GI Other: Rectal exam shows the seton to be in place with the fistula tract much shorter. There were no new areas of induration or sinuses. The seton is loose around the fistula tract Palpation (GI): Soft to palpation and nontender Assessment & Plan Assessment & Plan (1) Anal fistula: Code(s): K60.3 - Anal fistula Category: Medical Plan: Status post seton placement. I tighten the seton using a silk 2-0 tie to make this snug around the remaining fistula tract. The residual fistula tract is much shorter She again sometime next month. Hopefully, the seton we will cut through completely by then. Coding Level of Care Code Est Pt Level 2 (19287) Diagnoses Anal fistula K60.3
--- OUTSIDE RECORDS SUMMARY | 2024-08-07 18:46 | XMS_ITS ---
Author Organization [facility] Address [address] [place] [phone] Care Team Providers Care Control Center Operator Name Role Phone No, PCP Primary Care Provider UnavailMala Russell Unavailable [phone] Cheryl Bains Unavailable [phone] REASON FOR VISIT sensitive teeth Encounters Encounter Location Date Provider Diagnosis [address] [address] 07/16/2023 Cheryl DeFlorio Plan Of Treatment No Information Progress Notes * Tori POOL EDOB:[birth year] (34 yo F)Acc No.[id number]:07/16/2023 Patient:?Tori POOL :1990???Age:33 Y???Sex:Female Address:[address], [place], [address] * * Date:?
--- OUTSIDE RECORDS SUMMARY | 2024-08-07 18:46 | XMS_ITS | Patient Health Record ---
Author Organization [facility] Address [address] [place] [place], [place] [id number] Care Team Providers Care Operations Tech Name Role Phone No, PCP Primary Care Provider Mala Harmon Unavailable [phone] Cheryl Bains Unavailable [phone] Allergies No Known Allergies Reason For Referral No Information Medications Medication SIG (Take, Route, Fr equency, Duration) Notes Start Date End Date Status amLODIPine Active Hydrochlorothiazide Active norethindrone Active hydrOXYzine Active sertraline Active Plan Of Treatment No Information Insurance Providers Payer Name Payer Address Payer Phone Subscriber Number Group Number Insured Name Patient Relationship to Insured Coverage Start Date Coverage End Date [facility] Dental Program [address] [place] [phone] [id number] Tori Pool Self - patient is the insured 1 Medical (General) History Medical History History ICD Code hypertension
== END 2024-08-07 15:44 | disposition home or self-care (01) ==
PROVIDERS: PCP Internal Medicine; Visit Provider Surgery
DX: K60.30 Anal fistula, unspecified (principal)
CPT/HCPCS: 99212

== ENCOUNTER → 2024-08-07 15:26 | Outpatient (BNVA) | payer OTHER, SELFPAY | PROVIDERS: PCP Internal Medicine; Visit Provider Surgery | DX: K60.30 Anal fistula, unspecified (principal); Z96.89 Presence of other specified functional implants | CPT/HCPCS: 99212 ==

== ENCOUNTER 2024-08-14 14:53 | Outpatient (AMB) | payer OTHER, SELFPAY ==
[2024-08-14 14:54] VITALS: BMI 40.8
--- NOTE | 2024-08-14 14:54 | MHC.OFFVIS ---
Vital Signs 08/14/24 14:54 Height 5 ft 2 in Weight 222 lb 15.996 oz BMI 40.8 Intake Visit Reasons: Had Anal Fistula surgery, having problem Intake Note: This patient presents for seton follow-up. Pt c/o; reports no complaints. Road Equipment Operator Required: No Accompanied by: Self / Same As Patient Allergies No Known Allergies [No Known Allergies*] Allergy (Verified 08/14/24 14:55) Medication List - Last Reconciled 08/14/24 by Mike Wolf MD amlodipine 5 mg PO DAILY fluconazole 150 mg PO ONCE 1 day hydrochlorothiazide 25 mg PO DAILY ibuprofen 600 mg PO Q6H PRN metronidazole 0.75%(37.5mg/5gram) 1 appful vaginal BEDTIME 5 days norethindrone (contraceptive) (Incassia) 0.35 mg PO DAILY oxycodone-acetaminophen 5-325 mg 1 tab PO TID PRN sertraline 100 mg PO DAILY trazodone 100 mg PO BEDTIME PRN HPI HPI Had Anal Fistula surgery, having problem: Details: She is following me in the office regularly because of her anal fistula with a seton in place. She says about 3-4 days ago, she had noticed this small soft lump on the outside her anus. She says that this is not tender. She denies any bleeding. She denies any pain. However she was concerned about this. She does think that this is a hemorrhoid. However wanted this checked. [facility] Medical History (Updated 08/14/24 @ 15:18 by Mike Wolf MD) External hemorrhoid Anal fistula Osteoarthritis of right hip Tobacco use disorder Lipoma of scalp Elevated platelet count Anxiety and depression Body mass index (BMI) of 39.0-39.9 in adult Abscess of right thigh Morbid obesity HTN (hypertension) Depression Surgical History Hx of surgical procedure (~04/29/24) Hx of wisdom tooth extraction Status post excision of lipoma (~01/04/23) History of incision and drainage (~06/2021) Family History Mother Mental health disorder Hypertension Father Hypertension Paternal Grandfather Colon cancer, Onset Age: 64 Social History Household Members: None Housing: Apartment Alcohol intake: current Alcohol intake frequency: holidays/special occasions only Alcohol type: wine and hard liquor Comment: counts correct Patient Tobacco Use Status: Current everyday Tobacco user Tobacco use type: Cigarette Cigarettes Per Day: 10 Years Smoked: 15 e-Cigarette/Vaping Use: Never Used Second Hand Smoke Exposure: Yes service: No Current occupational status: employed 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[employer] Current occupational exposures/hazards: No Sexual orientation: Straight/Heterosexual Gender identity: Female Cognitive needs: No Hearing needs: No Vision needs: Yes (Contact lenses.) Female Reproductive History Menstrual Age of Menarche: 10 Review of Systems Const Denies chills and Denies fever(s) Card Denies chest pain, Denies dyspnea and Denies dyspnea on exertion Resp Denies cough, Denies dyspnea and Denies dyspnea on exertion GI Denies hematochezia and Denies change in bowel habits Denies hematuria Musc Denies back pain and Denies limited range of motion Neuro Denies focal weakness and Denies convulsions Psych Denies depression and Denies mood swings Physical Exam Vital Signs: BMI result Body Mass Index 40.8 Const General: comfortable and no acute distress Resp Effort & Inspection: normal respiratory effort Cardio Rate: regular rate GI Other: Rectal exam shows an external hemorrhoid on the left anterior, adjacent to her fistula with a seton. There is no thrombosis. There is no tenderness Assessment & Plan Assessment & Plan (1) External hemorrhoid: Code(s): K64.4 - Residual hemorrhoidal skin tags Category: Medical Plan: She has this small external hemorrhoid adjacent to her fistula tract. This is not thrombosed. This is not tender. I assured her about this as she was concerned that this was ?something bad?. She has 2 continue to see me in the office for her anal fistula with a seton in place. Coding Level of Care Code Est Pt Level 2 (54126) Diagnoses External hemorrhoid K64.4
== END 2024-08-14 15:39 | disposition home or self-care (01) ==
PROVIDERS: PCP Internal Medicine; Visit Provider Surgery
DX: K64.4 Residual hemorrhoidal skin tags (principal)
CPT/HCPCS: 99212

== ENCOUNTER → 2024-08-14 14:53 | Outpatient (BNVA) | payer OTHER, SELFPAY | PROVIDERS: PCP Internal Medicine; Visit Provider Surgery | DX: K64.4 Residual hemorrhoidal skin tags (principal); Z96.89 Presence of other specified functional implants | CPT/HCPCS: 99212 ==

== ENCOUNTER 2024-10-15 15:55 | Outpatient (AMB) | payer OTHER, SELFPAY ==
--- NOTE | 2024-10-15 15:56 | A.OFFVIS_ITS ---
Vital Signs 10/15/24 15:59 Height 5 ft 2 in Weight 232 lb BMI 42.4 Intake Visit Reasons: 1 mth follow up Seton Intake Note: This patient presents for one month follow-up, seton. Pt c/o; no concerns. Model Making Supervisor Required: No Accompanied by: Self / Same As Patient Allergies No Known Allergies [No Known Allergies*] Allergy (Verified 10/15/24 16:00) Medication List - Last Reconciled 10/15/24 by Mike Wolf MD amlodipine 5 mg PO DAILY fluconazole 150 mg PO ONCE 1 day hydrochlorothiazide 25 mg PO DAILY ibuprofen 600 mg PO Q6H PRN metronidazole 0.75%(37.5mg/5gram) 1 appful vaginal BEDTIME 5 days norethindrone (contraceptive) (Incassia) 0.35 mg PO DAILY oxycodone-acetaminophen 5-325 mg 1 tab PO TID PRN sertraline 100 mg PO DAILY trazodone 100 mg PO BEDTIME PRN HPI HPI 1 mth follow up Seton: Details: She has here for a follow-up for anal fistula with a seton in place. She denies any new complaints. She denies any significant drainage. [facility] Medical History External hemorrhoid Anal fistula Osteoarthritis of right hip Tobacco use disorder Lipoma of scalp Elevated platelet count Anxiety and depression Body mass index (BMI) of 39.0-39.9 in adult Abscess of right thigh Morbid obesity HTN (hypertension) Depression Surgical History Hx of surgical procedure (~04/29/24) Hx of wisdom tooth extraction Status post excision of lipoma (~01/04/23) History of incision and drainage (~06/2021) Family History Mother Mental health disorder Hypertension Father Hypertension Paternal Grandfather Colon cancer, Onset Age: 64 Social History Household Members: None Housing: Apartment Alcohol intake: current Alcohol intake frequency: holidays/special occasions only Alcohol type: wine and hard liquor Comment: counts correct Patient Tobacco Use Status: Current everyday Tobacco user Tobacco use type: Cigarette Cigarettes Per Day: 10 Years Smoked: 15 e-Cigarette/Vaping Use: Never Used Second Hand Smoke Exposure: Yes service: No Current occupational status: employed 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[employer] Current occupational exposures/hazards: No Sexual orientation: Straight/Heterosexual Gender identity: Female Cognitive needs: No Hearing needs: No Vision needs: Yes (Contact lenses.) Female Reproductive History Menstrual Age of Menarche: 10 Review of Systems Const Denies chills and Denies fever(s) Card Denies chest pain, Denies dyspnea and Denies dyspnea on exertion Resp Denies cough, Denies dyspnea and Denies dyspnea on exertion GI Denies hematochezia and Denies change in bowel habits Denies hematuria Musc Denies back pain and Denies limited range of motion Neuro Denies focal weakness and Denies convulsions Psych Denies depression and Denies mood swings Physical Exam Vital Signs: BMI result Body Mass Index 42.4 Const General: comfortable and no acute distress Nutritional Appearance: obese Resp Effort & Inspection: normal respiratory effort GI Other: Rectal exam shows the seton to be in place, seems loose around the remaining fistula tract, fistulous tract shorter than before Assessment & Plan Assessment & Plan (1) Anal fistula: Code(s): K60.3 - Anal fistula Category: Medical Plan: Seton in place. I was able to tighten the seton some more using a silk 3-0 tie. I will see her again in the office next month to see how this is coming along. We may be able to remove the seton if the remaining fistula tract is much shorter by then. Coding Level of Care Code Est Pt Level 3 (28726) Diagnoses Anal fistula K60.3
[2024-10-15 15:59] VITALS: BMI 42.4
--- OUTSIDE RECORDS SUMMARY | 2024-10-15 19:28 | XMS_ITS ---
Author Organization [facility] Address [address] [place] [id number] Care Team Providers Care Front Of House Manager Name Role Phone No, PCP Primary Care Provider UnavailMala Russell Unavailable [phone] Cheryl Bains Unavailable [phone] REASON FOR VISIT sensitive teeth Encounters Encounter Location Date Provider Diagnosis [address] [address] 07/16/2023 Cheryl DeFlorio Plan Of Treatment No Information Progress Notes * Tori POOL EDOB:[birth year] (34 yo F)Acc No.[id number]:07/16/2023 Patient:?Tori POOL :1990???Age:33 Y???Sex:Female Address:[address], [place], [address] * * Date:?
--- OUTSIDE RECORDS SUMMARY | 2024-10-15 19:28 | XMS_ITS ---
Author Organization [facility] Address [address] [place] [phone] Care Team Providers Care Electrician Refinery Name Role Phone No, PCP Primary Care Provider UnavailMala Russell Unavailable [phone] Cheryl Bains Unavailable [phone] REASON FOR VISIT recall Medications Medication SIG (Take, Route, Fr equency, Duration) Notes Start Date End Date Status amLODIPine Active Hydrochlorothiazide Active norethindrone Active hydrOXYzine Active sertraline Active Encounters Encounter Location Date Provider Diagnosis [address] [address] 09/25/2023 Cheryl Bains Plan Of Treatment No Information Progress Notes * Tori AVILA EDOB:[birth year] (34 yo F)Acc No.[id number]:09/25/2023 Dental Notes Patient:?Tori AVILA Provider:?Cheryl Bains :1990???Age:33 Y???Sex:Female D ate:09/25/2023 Address:[address] [place] [address] [address], [place] Pcp:PCP No Subjective: * Chief Complaints: * ???1. Recall. * Medical History:? * Medications:?Taking sertrali ne , Taking norethindrone , Taking hydrOXYzine , Taking Hydrochlorothiazide , Taking amLODIPine Objective: * Vitals:? Assessment: Plan: * Treatment: * Images: Billing Information: * Visit Code:? * Procedure Codes:? * Electronic signature of Cheryl Bains on 10/15/2024 at 07:27 PM EST Sign off status: Pending * Provider:?Cheryl Bains Date:?09/25/2023 Generated for Girma anna/Madison/Barbara on:?10/15/2024 07:27 PM EST
--- OUTSIDE RECORDS SUMMARY | 2024-10-15 19:28 | XMS_ITS | Patient Health Record ---
Author Organization [facility] Address [address], [place] [phone] Care Team Providers Care Per Diem Nurse Name Role Phone No, PCP Primary Care Provider Mala Harmon Unavailable [phone] Allergies No Known Allergies Reason For Referral No Information Medications Medication SIG (Take, Route, Fr equency, Duration) Notes Start Date End Date Status amLODIPine Active Hydrochlorothiazide Active norethindrone Active hydrOXYzine Active sertraline Active Plan Of Treatment No Information Insurance Providers Payer Name Payer Address Payer Phone Subscriber Number Group Number Insured Name Patient Relationship to Insured Coverage Start Date Coverage End Date [facility] Program [address] [place] [phone] [id number] Tori Pool Self - patient is the insured 1 Medical (General) History Medical History History ICD Code hypertension
== END 2024-10-15 16:12 | disposition home or self-care (01) ==
PROVIDERS: PCP Internal Medicine; Visit Provider Surgery
DX: K60.30 Anal fistula, unspecified (principal)
CPT/HCPCS: 99213

== ENCOUNTER → 2024-10-15 15:55 | Outpatient (BNVA) | payer OTHER, SELFPAY | PROVIDERS: PCP Internal Medicine; Visit Provider Surgery | DX: K60.30 Anal fistula, unspecified (principal) | CPT/HCPCS: 99212 ==

== ENCOUNTER 2024-11-13 08:36 | Outpatient (AMB) | payer OTHER, SELFPAY ==
--- NOTE | 2024-11-13 08:41 | A.OFFVIS_ITS ---
Vital Signs 11/13/24 08:47 Height 5 ft 2 in Weight 223 lb BMI 40.8 BP 128/72 Blood Pressure Location Rt brachial Position Sitting Pulse 82 Intake Visit Reasons: one month follow up, seton Intake Note: Patient here for 1m follow up Anal fistula. Seton was tighten at last visit in September. Reports no concerns. Patient c/o: denies bleeding. Normal BM. Plsql Developer Required: No Accompanied by: Self / Same As Patient Allergies No Known Allergies [No Known Allergies*] Allergy (Verified 11/13/24 08:44) Medication List - Last Reconciled 11/13/24 by Mike Wolf MD amlodipine 5 mg PO DAILY fluconazole 150 mg PO ONCE 1 day hydrochlorothiazide 25 mg PO DAILY ibuprofen 600 mg PO Q6H PRN metronidazole 0.75%(37.5mg/5gram) 1 appful vaginal BEDTIME 5 days norethindrone (contraceptive) (Incassia) 0.35 mg PO DAILY sertraline 100 mg PO DAILY tramadol 50 mg PO Q6H PRN trazodone 100 mg PO BEDTIME PRN HPI HPI one month follow up, seton: Details: She is here for a follow-up for her anal fistula with a seton in place. She denies any new complaints. She describes some drainage from the fistula tract. [facility] Medical History External hemorrhoid Anal fistula Osteoarthritis of right hip Tobacco use disorder Lipoma of scalp Elevated platelet count Anxiety and depression Body mass index (BMI) of 39.0-39.9 in adult Abscess of right thigh Morbid obesity HTN (hypertension) Depression Surgical History Hx of surgical procedure (~04/29/24) Hx of wisdom tooth extraction Status post excision of lipoma (~01/04/23) History of incision and drainage (~06/2021) Family History Mother Mental health disorder Hypertension Father Hypertension Paternal Grandfather Colon cancer, Onset Age: 64 Social History Household Members: None Housing: Apartment Alcohol intake: current Alcohol intake frequency: holidays/special occasions only Alcohol type: wine and hard liquor Comment: counts correct Patient Tobacco Use Status: Current everyday Tobacco user Tobacco use type: Cigarette Cigarettes Per Day: 10 Years Smoked: 15 e-Cigarette/Vaping Use: Never Used Second Hand Smoke Exposure: Yes service: No Current occupational status: employed 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[employer] Current occupational exposures/hazards: No Sexual orientation: Straight/Heterosexual Gender identity: Female Cognitive needs: No Hearing needs: No Vision needs: Yes (Contact lenses.) Female Reproductive History Menstrual Age of Menarche: 10 Review of Systems Const Denies chills and Denies fever(s) Card Denies chest pain, Denies dyspnea and Denies dyspnea on exertion Resp Denies cough, Denies dyspnea and Denies dyspnea on exertion GI Denies hematochezia and Denies change in bowel habits Denies hematuria Musc Denies back pain and Denies limited range of motion Neuro Denies focal weakness and Denies convulsions Psych Denies depression and Denies mood swings Physical Exam Vital Signs: Last Vital Signs Pulse 82 11/13/24 08:47 BP 128/72 11/13/24 08:47 BMI result Body Mass Index 40.8 Const General: comfortable and no acute distress Resp Effort & Inspection: normal respiratory effort Cardio Rate: regular rate GI Other: Rectal exam shows the seton to be in place with a very short residual fistula tract. No new sinuses or induration Palpation (GI): Soft to palpation, not firm and nontender Assessment & Plan Assessment & Plan (1) Anal fistula: Code(s): K60.3 - Anal fistula Category: Medical Plan: I tightened the seton to make this snug around the remaining short fistula tract. The seton has advanced significantly and the residual fistula tract is very short so I will consider removing the seton entirely next month. I will prescribe her Motrin for her pain as the seton is tight currently. Coding Level of Care Code Est Pt Level 3 (34883) Diagnoses Anal fistula K60.3
[2024-11-13 08:47] VITALS: BP 128/72; PULSE 82; BMI 40.8
--- OUTSIDE RECORDS SUMMARY | 2024-11-13 09:09 | XMS_ITS ---
Author Organization [facility] Address [address] [place] [phone] Care Team Providers Care Glass Rolling Machine Operator Name Role Phone No, PCP Primary Care Provider Cheryl Rojas Unavailable [phone] REASON FOR VISIT recall Medications Medication SIG (Take, Route, Fr equency, Duration) Notes Start Date End Date Status amLODIPine Active Hydrochlorothiazide Active norethindrone Active hydrOXYzine Active sertraline Active Encounters Encounter Location Date Provider Diagnosis [address] [address] 09/25/2023 Cheryl Bains Plan Of Treatment No Information Progress Notes * AUSTINKofiTori EDOB:[birth year] (34 yo F)Acc No.[id number]:09/25/2023 Dental Notes Patient:?Tori AVILA Provider:Rossy Bains :1990???Age:33 Y???Sex:Female D ate:09/25/2023 Address:[address] [place] [address] [address], [place] Pcp:PCP No Subjective: * Chief Complaints: * ???1. Recall. * Medical History:? * Medications:?Taking sertrali ne , Taking norethindrone , Taking hydrOXYzine , Taking Hydrochlorothiazide , Taking amLODIPine Objective: * Vitals:? Assessment: Plan: * Treatment: * Images: Billing Information: * Visit Code:? * Procedure Codes:? * Electronic signature of Cheryl Bains on 11/13/2024 at 09:09 AM EDT Sign off status: Pending * Provider:Rossy Bains Date:?09/25/2023 Generated for Girma anna/Madison/Barbara on:?11/13/2024 09:09 AM EDT
--- OUTSIDE RECORDS SUMMARY | 2024-11-13 09:09 | XMS_ITS ---
Author Organization [facility] Address [address] [place] [id number] Care Team Providers Care Meat Scrubber Name Role Phone No, PCP Primary Care Provider Unavailtalita e Cheryl Bains Unavailable [phone] REASON FOR VISIT sensitive teeth Encounters Encounter Location Date Provider Diagnosis [address] [address] 07/16/2023 Cheryl DeFlorio Plan Of Treatment No Information Progress Notes * Tori AVILA EDOB:[birth year] (34 yo F)Acc No.[id number]:07/16/2023 Patient:?Tori AVILA :1990???Age:33 Y???Sex:Female Address: [address], [place], [address] * * Date:?
--- OUTSIDE RECORDS SUMMARY | 2024-11-13 09:10 | XMS_ITS | Patient Health Record ---
Author Organization [facility] Address [address] [place], [place] [phone] Care Team Providers Care Cleaning Specialist Name Role Phone No, PCP Primary Care Provider Unavailabl e Allergies No Known Allergies Reason For Referral No Information Medications Medication SIG (Take, Route, Fr equency, Duration) Notes Start Date End Date Status amLODIPine Active Hydrochlorothiazide Active norethindrone Active hydrOXYzine Active sertraline Active Plan Of Treatment No Information Insurance Providers Payer Name Payer Address Payer Phone Subscriber Number Group Number Insured Name Patient Relationship to Insured Coverage Start Date Coverage End Date [facility] Program [address] [place] [phone] [id number] Tori oPol Self - patient is the insured 1 Medical (General) History Medical History History ICD Code hypertension
== END 2024-11-13 09:01 | disposition home or self-care (01) ==
LOC: HO.HGS 08:37
PROVIDERS: PCP Internal Medicine; Visit Provider Surgery
DX: K60.30 Anal fistula, unspecified (principal)
CPT/HCPCS: 99213

== ENCOUNTER → 2024-11-13 08:36 | Outpatient (BNVA) | payer OTHER, SELFPAY | PROVIDERS: PCP Internal Medicine; Visit Provider Surgery | DX: I10 Essential (primary) hypertension (principal); L81.1 Chloasma; M54.50 Low back pain, unspecified; E66.01 Morbid (severe) obesity due to excess calories; Z68.42 Body mass index [BMI] 45.0-49.9, adult; F32.9 Major depressive disorder, single episode, unspecified; M16.11 Unilateral primary osteoarthritis, right hip; K60.30 Anal fistula, unspecified; Z68.41 Body mass index [BMI] 40.0-44.9, adult; Z96.89 Presence of other specified functional implants | CPT/HCPCS: 99212 ==

== ENCOUNTER 2024-11-13 13:22 | Outpatient (AMB) | payer OTHER, SELFPAY ==
--- NOTE | 2024-11-13 13:30 | MHC.PC.OV ---
Vital Signs 11/13/24 13:32 Height 5 ft 2 in Weight 224 lb 8 oz BMI 41.1 BP 120/70 Blood Pressure Location Lt brachial Position Sitting Pulse 83 Pulse Source Pulse Oximeter Temp 97.5 F Temp Source Temporal Artery Scan Pulse Oximetry (%) 99 Oxygen Delivery Method Room Air Intake Visit Reasons: 6mth f/u Intake Note: Patient is here to follow up on Low back pain, HTN. Electronic Warfare Operator Required: No Boiler Blower: Not Required per policy Accompanied by: Self / Same As Patient Allergies No Known Allergies [No Known Allergies*] Allergy (Verified 11/13/24 13:32) Tobacco use date assessed: 11/13/24 Dental Screening Dental Screen Date: 11/13/24 Did you have a dental visit in the last 12 months?: Yes Did you have a dental problem in the last 6 months where you did not have access to dental care?: No Was dental information given to patient?: Patient has dentist [facility] Medical History External hemorrhoid Anal fistula Osteoarthritis of right hip Tobacco use disorder Lipoma of scalp Elevated platelet count Anxiety and depression Body mass index (BMI) of 39.0-39.9 in adult Abscess of right thigh Morbid obesity HTN (hypertension) Depression Surgical History Hx of surgical procedure (~04/29/24) Hx of wisdom tooth extraction Status post excision of lipoma (~01/04/23) History of incision and drainage (~06/2021) Family History Mother Mental health disorder Hypertension Father Hypertension Paternal Grandfather Colon cancer, Onset Age: 64 Social History Household Members: None Housing: Apartment Alcohol intake: current Alcohol intake frequency: holidays/special occasions only Alcohol type: wine and hard liquor Comment: counts correct Patient Tobacco Use Status: Current everyday Tobacco user Tobacco use type: Cigarette Cigarette Packs Per Day: 0.5 Cigarettes Per Day: 10 Years Smoked: 15 e-Cigarette/Vaping Use: Never Used Second Hand Smoke Exposure: Yes service: No Current occupational status: employed 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 1. Little interest or pleasure in doing things: not at all 2. Feeling down, depressed, or hopeless: not at all 3. Trouble falling or staying asleep, or sleeping too much: not at all 4. Feeling tired or having little energy: not at all 5. Poor appetite or overeating: not at all 6. Feeling bad about yourself - or that you are a failure or have let yourself or your family down: not at all 7. Trouble concentrating on things, such as reading the newspaper or watching television: not at all 8. Moving or speaking so slowly that other people could have noticed. Or the opposite - being so fidgety or restless that you have been moving around a lot more than usual: not at all 9. Thoughts that you would be better off or of hurting yourself in some way: not at all Total score: 0 Depression Screening Interpretation: Negative Depression Screening Done: Yes Source: Developed by Drs. Samuel Dasilva, Noni Espinoza, Sal Bunch and colleagues, with an educational sarah from [email or web address]. Thrive Questionnaire Date Thrive assessed: 11/13/24 I am a: Patient What is your living situation today?: I have a steady place to live Within the past 12 months, did the food you bought not last and you didn't have the money to get more?: Never true Within the past 12 months, did you worry whether your food would run out before you got money to buy more?: Never true Do you have trouble paying for medicines?: No Do you have trouble getting transportation to medical appointments?: No Do you have trouble paying your heating and electricity bill?: No Do you have trouble taking care of your child, family member or friend?: No Do you have trouble with day-to-day activities such as bathing, preparing meals, shopping, managing finances, etc.?: No Are you currently unemployed and looking for a job?: No Are you interested in more education?: No Please select the resources that you would like help with: None Currently or been in a relationship where the following occur: No concerns reported THRIVE Score: 0 AUDIT C Alcohol Use Questionnaire (AUDIT-C) 2. How many drinks containing alcohol do you have on a typical day when you are drinking?: 1 or 2 3. How often do you have six or more drinks on one occasion?: Never Total Score: 0 DONALDO-7 AMB Questionnaire DONALDO-7 Date DONALDO - 7 assessed: 11/13/24 Feeling nervous, anxious, or on edge: 0 = Not at all Not being able to stop or control worryin = Not at all Worrying too much about different things: 0 = Not at all Trouble relaxin = Not at all Being so restless that it is hard to sit still: 0 = Not at all Becoming easily annoyed or irritable: 0 = Not at all Feeling afraid as if something awful might happen: 0 = Not at all Total DONALDO-7 score (0-4 normal; 5-9 mild; 10-14 moderate; 15-21 severe): 0 Source: Developed by Drs. Samuel Dasilva, Noni Espinoza, Sal Bunch and colleagues, with an educational sarah from [email or web address]. Physical exam (Primary Care) Vital Signs: Last Vital Signs Temp 97.5 F 11/13/24 13:32 Pulse 83 11/13/24 13:32 BP 120/70 11/13/24 13:32 Pulse Ox 99 11/13/24 13:32 Oxygen Delivery Method Room Air 11/13/24 13:32 BMI result Body Mass Index 41.1 Tobacco/Smoking Status: Tobacco use Status Tobacco use date assessed 11/13/24 11/13/24 13:37 Patient Tobacco Use Status Current everyday Tobacco 11/13/24 13:37 Tobacco use type Cigarette 11/13/24 13:37 e-Cigarette/Vaping Use Never Used 11/13/24 13:37 PHQ-9: PHQ-9 Score PHQ-9: Total score 0 11/13/24 13:37 Depression Screening Interpretation: Negative Thrive Assessment: Date of Thrive Assessment Date Thrive assessed 11/13/24 11/13/24 13:37 Currently or been in a relationship where the following occur: No concerns reported Coding Level of Care Code Est Pt Level 4 (55258) Complex EM visit Add On G2211 Diagnoses Melasma L81.1 Morbid obesity with BMI of 45.0-49.9, adult E66.01; Z68.42 HTN (hypertension) I10 Depression F32.9 Osteoarthritis of right hip M16.11 Assessment & Plan Assessment & Plan (1) Melasma: Code(s): L81.1 - Chloasma Plan: Dermatology appt made (2) Morbid obesity with BMI of 45.0-49.9, adult: Code(s): E66.01 - Morbid (severe) obesity due to excess calories; Z68.42 - Body mass index [BMI] 45.0-49.9, adult Category: Medical Plan: Counselling on the importance of diet and exercise done (3) HTN (hypertension): Code(s): I10 - Essential (primary) hypertension Category: Medical Plan: Continue current treatment (4) Depression: Code(s): F32.9 - Major depressive disorder, single episode, unspecified Category: Medical Plan: Continue use of Trazodone (5) Osteoarthritis of right hip: Code(s): M16.11 - Unilateral primary osteoarthritis, right hip Category: Medical Plan: Meloxicam and cyclobenzaprine ordered. Will call with results Plan History of Present Illness The patient is a 34-year-old female presenting with chronic right hip and shoulder pain, insomnia, and management of HSV-2. She reports a persistent pain in both the right hip and shoulder, attributed to osteoarthritis, noted from previous X-rays. Despite attempts to manage the pain with non-prescription medication, there is little relief. She experiences severe discomfort, primarily at night, impacting her quality of life. This pain leads to significant distress, causing fear of progression to a condition like her mother?s rheumatoid arthritis. The patient also manages insomnia with trazodone, a transition from hydroxyzine, which has notably improved her sleep. Regarding her HSV-2 status, she experiences infrequent outbreaks, usually addressed topically. Moreover, she expresses concern over a skin lesion on her nose, requesting a dermatological consultation. Social History - Employed full-time and maintains a positive outlook despite chronic pain. - Reports having gym membership but does not presently exercise regularly. - Recently lost approximately 40 pounds. - Engages in self-care measures for pain, such as heating pads and stretching exercises. Review of Systems - Musculoskeletal: Reports chronic right hip and shoulder pain. - Dermatological: Reports skin lesion on the nose. - Neurological: Denies morning stiffness. - Genitourinary: Reports infrequent HSV-2 outbreaks, primarily asymptomatic. - Respiratory: History of asthma. Physical Exam General: Cooperative and healthy appearing Nutritional Appearance: Well nourished Orientation/consciousness: Patient oriented x3 Limitations: No limitations Head: Normal to inspection General: Appearance normal, both eyes and all related structures Neck: Normal visual inspection Chest: Normal palpation of entire chest wall Respiratory: Normal respiratory effort Neurology: Patient oriented x3 Results - Labs: C-reactive protein (CRP) and rheumatoid factor (RF) pending for arthritis evaluation. Plan The patient will initiate treatment with meloxicam and cyclobenzaprine for osteoarthritis-related pain management, with a reassessment planned in two weeks. Trazodone will continue due to its efficacy in addressing her insomnia. Management for HSV-2 will remain episodic rather than suppressive. We arranged a dermatological referral to examine concerns regarding the nasal lesion. Lab workup for inflammatory markers and rheumatoid factor will be performed given her family history and symptoms. Follow-up will address medication efficacy and lab results. Patient was informed and verbally consented to the use of an ambient scribe for clinic note documentation during this visit. Discussion Notes I discussed the planned switch to meloxicam and cyclobenzaprine for managing osteoarthritic pain, explaining the non-narcotic nature of the anti-inflammatory and muscle relaxation benefits to support sleep. We reviewed HSV-2 management, focusing on episodic treatment, and the infrequency of outbreaks does not warrant continuous suppressive therapy. I explored the risks and procedures surrounding potential rheumatoid arthritis testing, ordering CRP and rheumatoid factor determinations. Dermatology referrals were agreed upon to examine her nasal skin changes, ensuring peace of mind regarding the lesion. We set a follow-up appointment in two weeks to evaluate the impact of current interventions and any further requirements. Patient Instructions - Begin meloxicam and cyclobenzaprine as directed for pain management. - Continue trazodone for insomnia as prescribed. - Use episodic antiviral treatment during any HSV-2 outbreaks. - Follow-up in two weeks for re-evaluation of symptoms and treatment effectiveness. - Proceed with scheduled lab work for CRP and rheumatoid factor. - Attend dermatological consultation for skin evaluation as referred. - Maintain regular physical activity as tolerated for overall health. Orders: Orders C Reactive Protein Today E66.01 - Morbid (severe) obesity due to excess calories, F32.9 - Major depressive disorder, single episode, unspecified, I10 - Essential (primary) hypertension, M16.11 - Unilateral primary osteoarthritis, right hip, Z68.42 - Body mass index [BMI] 45.0-49.9, adult Complete Blood Count no Diff Today E66.01 - Morbid (severe) obesity due to excess calories, F32.9 - Major depressive disorder, single episode, unspecified, I10 - Essential (primary) hypertension, M16.11 - Unilateral primary osteoarthritis, right hip, Z68.42 - Body mass index [BMI] 45.0-49.9, adult Liver Panel Today E66.01 - Morbid (severe) obesity due to excess calories, F32.9 - Major depressive disorder, single episode, unspecified, I10 - Essential (primary) hypertension, M16.11 - Unilateral primary osteoarthritis, right hip, Z68.42 - Body mass index [BMI] 45.0-49.9, adult Rheumatoid Factor Today E66.01 - Morbid (severe) obesity due to excess calories, F32.9 - Major depressive disorder, single episode, unspecified, I10 - Essential (primary) hypertension, M16.11 - Unilateral primary osteoarthritis, right hip, Z68.42 - Body mass index [BMI] 45.0-49.9, adult Basic Metabolic Panel Today E66.01 - Morbid (severe) obesity due to excess calories, F32.9 - Major depressive disorder, single episode, unspecified, I10 - Essential (primary) hypertension, M16.11 - Unilateral primary osteoarthritis, right hip, Z68.42 - Body mass index [BMI] 45.0-49.9, adult Lipid Panel Today E66.01 - Morbid (severe) obesity due to excess calories, F32.9 - Major depressive disorder, single episode, unspecified, I10 - Essential (primary) hypertension, M16.11 - Unilateral primary osteoarthritis, right hip, Z68.42 - Body mass index [BMI] 45.0-49.9, adult Thyroid Stimulating Hormone Today E66.01 - Morbid (severe) obesity due to excess calories, F32.9 - Major depressive disorder, single episode, unspecified, I10 - Essential (primary) hypertension, M16.11 - Unilateral primary osteoarthritis, right hip, Z68.42 - Body mass index [BMI] 45.0-49.9, adult UA and rflx microscopic Today E66.01 - Morbid (severe) obesity due to excess calories, F32.9 - Major depressive disorder, single episode, unspecified, I10 - Essential (primary) hypertension, M16.11 - Unilateral primary osteoarthritis, right hip, Z68.42 - Body mass index [BMI] 45.0-49.9, adult Referrals Dermatology Referral L81.1 - Chloasma Medications: New meloxicam 15 mg PO DAILY 14 tabs 0RF valacyclovir 500 mg PO Q12H 14 tabs 0RF cyclobenzaprine 10 mg PO BEDTIME 14 tabs 0RF Discontinued ibuprofen Discontinued Reason: Doctor's Order 600 mg PO Q6H PRN 20 tabs 0RF pain
[2024-11-13 13:32] VITALS: BP 120/70; PULSE 83; TEMP 36.4; O2SAT 99; BMI 41.1
== END 2024-11-13 13:57 | disposition home or self-care (01) ==
LOC: HO.HMCH 13:23
PROVIDERS: PCP Internal Medicine; Visit Provider Internal Medicine
DX: L81.1 Chloasma (principal); E66.01 Morbid (severe) obesity due to excess calories; Z68.42 Body mass index [BMI] 45.0-49.9, adult; I10 Essential (primary) hypertension; F32.9 Major depressive disorder, single episode, unspecified; M16.11 Unilateral primary osteoarthritis, right hip

== ENCOUNTER 2024-11-24 06:13 | Outpatient (REF) | payer OTHER, SELFPAY ==
--- OUTSIDE RECORDS SUMMARY | 2024-11-24 06:16 | XMS_ITS ---
Author Organization [facility] Address [address] [place] [id number] Care Team Providers Care Tank Calibrator Name Role Phone No, PCP Primary Care Provider Unavailtalita e Cheryl Bains Unavailable [phone] REASON FOR VISIT sensitive teeth Encounters Encounter Location Date Provider Diagnosis [address] [address] 07/16/2023 Cheryl DeFlorio Plan Of Treatment No Information Progress Notes * Tori AVILA EDOB:[birth year] (34 yo F)Acc No.[id number]:07/16/2023 Patient:?Tori AVILA :1990???Age:33 Y???Sex:Female Address: [address], [place], [address] * * Date:?
--- OUTSIDE RECORDS SUMMARY | 2024-11-24 06:16 | XMS_ITS | Patient Health Record ---
Author Organization [facility] Address [address], [place] [id number] Care Team Providers Care Imagery Analyst Name Role Phone No, PCP Primary Care [...] Insured Coverage Start Date Coverage End Date [facility] Dental Program [address] [place] [address] [id number] Tori Pool Self - patient is the insured 1 Medical (General) History Medical History History ICD Code hypertension
[2024-11-24 08:05] LABS: Hematocrit 43.3 % (37.0-47.0); Hemoglobin 14.9 g/dl (12.0-16.0); Mean Corpuscular HGB Conc 34.4 g/dl (31.0-35.0); Mean Corpuscular Hemoglobin 30.2 pg (27.0-33.0); Mean Corpuscular Volume 87.8 fL (80.0-98.0); Platelet Count 394 X10*3/uL (160-400); Red Blood Count 4.93 X10*6/uL (4.20-5.50); Red Cell Distribution Width 11.9 % (11.0-16.0); White Blood Count 8.7 X10*3/uL (4.8-10.8)
[2024-11-24 08:13] LABS: Appearance Urine Clear; Color Urine Yellow; Glucose Urine UA Negative (Negative); Leukocyte Esterase Urine Small (1+) (Negative); Nitrite Urine Negative (Negative); PH 5.5 (5.0-9.0); Specific Gravity - Urine >= 1.030 (1.005-1.025); UMIC TRIGGER UA YES; Urine Blood Negative (Negative); Urine Ketones Trace mg/dL (Negative); Urine Protein Negative (Neg-Trace)
[2024-11-24 08:15] LABS: Bacteria Urine 1+ (None Seen); Hyaline Casts Urine 0-2 /LPF (0-2); RBC Urine 0-2 /HPF (0-2)
[2024-11-24 08:47] LABS: Rheumatoid Factor 23.3 IU/mL (<15.0)
[2024-11-24 08:53] LABS: Alanine Aminotransferase 24 U/L (0-31); Albumin Level 3.9 g/dL (3.5-5.0); Anion Gap 13 (12-20); Aspartate Amino Transferase 27 U/L (5-31); Bilirubin Direct 0.1 mg/dL (0.0-0.5); Bilirubin Total 0.3 mg/dL (0.0-1.0); Blood Urea Nitrogen 22 mg/dL (9-16); C Reactive Protein 0.98 mg/dL (< or = 0.50); Carbon Dioxide 25 mmol/L (22-29); Chloride 106 mmol/L (96-108); Cholesterol 166 mg/dL (<200); Estimated Glomerular Filt Rate > 60; Glucose Random 91 mg/dL (60-115); HDL Cholesterol 52 mg/dL (>40); LDL Cholesterol Calculated 98 mg/dL (<100); Potassium 3.7 mmol/L (3.3-5.1); Sodium 140 mmol/L (135-145); Total Protein 6.8 g/dL (6.5-8.0); Triglycerides 81 mg/dL (<150)
[2024-11-24 09:06] LABS: Thyroid Stimulating Hormone 2.28 uIU/mL (0.32-4.0)
[2024-11-24 09:21] LABS: Alkaline Phosphatase 69 U/L (39-117)
== END 2024-11-24 06:14 | disposition home or self-care (01) ==
LOC: HO.LAB 06:13
PROVIDERS: PCP Internal Medicine; Visit Provider Internal Medicine
DX: M16.11 Unilateral primary osteoarthritis, right hip (principal); E66.01 Morbid (severe) obesity due to excess calories; Z68.42 Body mass index [BMI] 45.0-49.9, adult; I10 Essential (primary) hypertension; F32.9 Major depressive disorder, single episode, unspecified
CPT/HCPCS: 36415; 80048; 80061; 80076; 81001; 84443; 85027; 86140; 86431

== ENCOUNTER 2024-11-27 13:38 | Outpatient (AMB) | payer OTHER, SELFPAY ==
--- NOTE | 2024-11-27 14:07 | MHC.PC.OV ---
Vital Signs 11/27/24 14:08 Height 5 ft 2 in Weight 229 lb 8 oz BMI 42.0 BP 130/72 Blood Pressure Location Lt brachial Position Sitting Pulse 95 Pulse Source Pulse Oximeter Temp 97.5 F Temp Source Temporal Artery Scan Pulse Oximetry (%) 97 Oxygen Delivery Method Room Air Intake Visit Reasons: 2 week follow up Intake Note: Patient is here to follow up on Depression, HTN. Surgical Asst Required: No Service Establishment Attendant: Not Required per policy Accompanied by: Self / Same As Patient Allergies No Known Allergies [No Known Allergies*] Allergy (Verified 11/27/24 14:08) Tobacco use date assessed: 11/13/24 Dental Screening Dental Screen Date: 11/13/24 [facility] Medical History (Updated 11/27/24 @ 06:14 by Chris Bolaños MD) Rheumatoid arthritis External hemorrhoid Anal fistula Osteoarthritis of right hip Tobacco use disorder Lipoma of scalp Elevated platelet count Anxiety and depression Body mass index (BMI) of 39.0-39.9 in adult Abscess of right thigh Morbid obesity HTN (hypertension) Depression Surgical History Hx of surgical procedure (~04/29/24) Hx of wisdom tooth extraction Status post excision of lipoma (~01/04/23) History of incision and drainage (~06/2021) Family History Mother Mental health disorder Hypertension Father Hypertension Paternal Grandfather Colon cancer, Onset Age: 64 Social History Household Members: None Housing: Apartment Alcohol intake: current Alcohol intake frequency: holidays/special occasions only Alcohol type: wine and hard liquor Comment: counts correct Patient Tobacco Use Status: Current everyday Tobacco user Tobacco use type: Cigarette Cigarette Packs Per Day: 0.5 Cigarettes Per Day: 10 Years Smoked: 15 e-Cigarette/Vaping Use: Never Used Second Hand Smoke Exposure: Yes service: No Current occupational status: employed 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 Samuel Dasilva, Noni Espinoza, Sal Bunch and colleagues, with an educational sarah from [employer]. Physical exam (Primary Care) Vital Signs: Last Vital Signs Temp 97.5 F 11/27/24 14:08 Pulse 95 11/27/24 14:08 BP 130/72 11/27/24 14:08 Pulse Ox 97 11/27/24 14:08 Oxygen Delivery Method Room Air 11/27/24 14:08 BMI result Body Mass Index 42.0 Tobacco/Smoking Status: Tobacco use Status Tobacco use date assessed 11/13/24 11/27/24 14:07 Patient Tobacco Use Status Current everyday Tobacco 11/27/24 14:07 Tobacco use type Cigarette 11/27/24 14:07 e-Cigarette/Vaping Use Never Used 11/27/24 14:07 Thrive Assessment: Date of Thrive Assessment Date Thrive assessed 11/13/24 11/27/24 14:07 Coding Level of Care Code Est Pt Level 4 (26396) Complex EM visit Add On G2211 Diagnoses Rheumatoid arthritis M06.9 Assessment & Plan Assessment & Plan (1) Rheumatoid arthritis: Code(s): M06.9 - Rheumatoid arthritis, unspecified Category: Medical Plan: Blood work shows elevated C-reactive protein and slightly positive rheumatoid arthritis. Patient is not getting relief all day with the meloxicam. Medication was stopped and naproxen added to the regimen. A rheumatology appointment has been requested. Plan History of Present Illness The patient is a 34-year-old female presenting with persistent hip pain. She experiences significant pain exacerbation in the evenings despite the morning use of meloxicam. Previous blood tests showed a slight elevation in the rheumatoid factor and C-reactive protein levels, raising a possibility of rheumatoid arthritis for which she is awaiting rheumatology consultation. Social History - Employment status: Not discussed - Housing: Not discussed - Educational level: Not discussed - Family status: Not discussed - Exercise habits: The patient continues daily activities despite the pain. - Substance use: Not discussed - Nutrition and weight management: Not discussed - Functional status: Maintains normal activities despite pain. Review of Systems - Musculoskeletal: Reports persistent hip pain, worsens in the afternoon and evenings. - General: Reports improved sleep with trazodone. - Genitourinary: Post-operative malodorous discharge after fistula surgery. - Constitutional: Denies any other significant systemic issues. Physical Exam General: Cooperative and healthy appearing Nutritional Appearance: Well nourished Orientation/consciousness: Patient oriented x3 Limitations: No limitations Head: Normal to inspection General: Appearance normal, both eyes and all related structures Neck: Normal visual inspection Chest: Normal palpation of entire chest wall Respiratory: Normal respiratory effort Neurology: Patient oriented x3 Results - Labs: - Positive rheumatoid factor - Elevated C-reactive protein - Tests and Diagnostics: - NONE discussed Plan The patient's current pain management using meloxicam is inadequate as it only provides short-term relief. Therefore, naproxen will be prescribed for more consistent pain control. I cautioned about long-term NSAID use and communicated the importance of follow-up with a litigation docket manager due to the inflammatory markers indicative of possible underlying rheumatoid arthritis. Adjustments will be made based on the findings of the rheumatology consultation. Patient was informed and verbally consented to the use of an ambient scribe for clinic note documentation during this visit. Discussion Notes I discussed with the patient the likely inflammatory nature of her hip pain, as suggested by the laboratory results. We reviewed the necessity of proper symptom management and possible changes in pain relief medication, switching from meloxicam to naproxen twice daily to achieve a more even pain control throughout the day. I stressed the importance of a timely consultation with a litigation docket manager and assured her of my support in escalating the urgency of her appointment based on her current pain levels. Further management of her post-operative condition after fistula repair was confirmed, with her reporting no ongoing issues. Patient Instructions - Discontinue meloxicam. - Begin taking naprosyn (naproxen) twice daily with food. - Keep the scheduled consultation with the litigation docket manager, ensuring to communicate if the appointment is delayed. - Contact the office if the pain becomes unbearable or if there are any new symptoms. - Follow any additional recommendations provided by the litigation docket manager. Medications: New naproxen (Naprosyn) 500 mg PO BID 30 tabs 0RF Discontinued meloxicam Discontinued Reason: Doctor's Order 15 mg PO DAILY 14 tabs 0RF ibuprofen Discontinued Reason: Doctor's Order 600 mg PO TID PRN 20 tabs 0RF pain trazodone Discontinued Reason: Doctor's Order 100 mg PO BEDTIME PRN 90 tabs 1RF for insomnia
[2024-11-27 14:08] VITALS: BP 130/72; PULSE 95; TEMP 36.4; O2SAT 97; BMI 42.0
--- OUTSIDE RECORDS SUMMARY | 2024-11-27 16:29 | XMS_ITS ---
Author Organization [facility] Address [address] [place] [id number] Care Team Providers Care Occupational Therapy Supervisor Name Role Phone No, PCP Primary Care Provider Unavailtalita e Cheryl Bains Unavailable [phone] REASON FOR VISIT sensitive teeth Encounters Encounter Location Date Provider Diagnosis [address] [address] 07/16/2023 Cheryl DeFlorio Plan Of Treatment No Information Progress Notes * Tori AVILA EDOB:[birth year] (34 yo F)Acc No.[id number]:07/16/2023 Patient:?Tori AVILA :1990???Age:33 Y???Sex:Female Address: [address], [place], [address] * * Date:?
--- OUTSIDE RECORDS SUMMARY | 2024-11-27 16:29 | XMS_ITS | Patient Health Record ---
Author Organization [facility] Address [address] [place], [place] [id number] Care Team Providers Care Clinical Associate Name Role Phone No, PCP Primary Care [...] Insured Coverage Start Date Coverage End Date [facility] Dental Program [address] [place] [address] [phone] [id number] Tori Pool Self - patient is the insured 1 Medical (General) History Medical History History ICD Code hypertension
--- OUTSIDE RECORDS SUMMARY | 2024-11-27 16:29 | XMS_ITS ---
Author Organization [facility] Address [address] [place] [phone] Care Team Providers Care Regulatory Compliance Director Name Role Phone No, PCP Primary Care Provider Cheryl Rojas Unavailable [phone] REASON FOR VISIT recall Medications Medication SIG (Take, Route, Fr equency, Duration) Notes Start Date End Date Status amLODIPine Active Hydrochlorothiazide Active norethindrone Active hydrOXYzine Active sertraline Active Encounters Encounter Location Date Provider Diagnosis [address] [address] 09/25/2023 Cheryl Bains Plan Of Treatment No Information Progress Notes * AUSTINKofiTori EDOB:[birth year] (34 yo F)Acc No.[id number]:09/25/2023 Dental Notes Patient:?Tori AVILA Provider:Rossy Bains :1990???Age:33 Y???Sex:Female D ate:09/25/2023 Address:[address] [place] [address] [address] [id number] Pcp:PCP No Subjective: * Chief Complaints: * ???1. Recall. * Medical History:? * Medications:?Taking sertrali ne , Taking norethindrone , Taking hydrOXYzine , Taking Hydrochlorothiazide , Taking amLODIPine Objective: * Vitals:? Assessment: Plan: * Treatment: * Images: Billing Information: * Visit Code:? * Procedure Codes:? * Electronic signature of Cheryl Bains on 11/27/2024 at 04:28 PM EDT Sign off status: Pending * Provider:Rossy Bains Date:?09/25/2023 Generated for Girma anna/Madsion/Barbara on:?11/27/2024 04:28 PM EDT
== END 2024-11-27 15:06 | disposition home or self-care (01) ==
LOC: HO.HMCH 13:39
PROVIDERS: PCP Internal Medicine; Visit Provider Internal Medicine
DX: M06.9 Rheumatoid arthritis, unspecified (principal)

== ENCOUNTER → 2024-11-27 13:38 | Outpatient (BNVA) | payer OTHER, SELFPAY | PROVIDERS: PCP Internal Medicine; Visit Provider Internal Medicine | DX: M06.9 Rheumatoid arthritis, unspecified (principal) | CPT/HCPCS: 99212 ==

== ENCOUNTER 2024-12-03 09:46 | Outpatient (AMB) | payer OTHER, SELFPAY ==
--- NOTE | 2024-12-03 09:47 | MHC.OFFVIS ---
Vital Signs 12/03/24 09:58 Height 5 ft 2 in Weight 227 lb 4.745 oz BMI 41.6 BP 120/72 Blood Pressure Location Lt brachial Position Sitting Pulse 98 Pulse Source Pulse Oximeter Pulse Oximetry (%) 98 Oxygen Delivery Method Room Air Intake Visit Reasons: RA/ New Patient Intake Note: Patient presents today for RA. C/O pain on RT shoulder and RT hip. Is been 2 years feeling pain. I have tried taking Tylenol, Aleve and Ibuprofen and it didn't touch the pain. It's getting worse. Allergies No Known Allergies [No Known Allergies*] Allergy (Verified 12/03/24 09:56) Medication List - Last Reconciled 12/03/24 by Lisa Tejada MD amlodipine 5 mg PO DAILY hydrochlorothiazide 25 mg PO DAILY meloxicam 15 mg PO DAILY norethindrone (contraceptive) (Incassia) 0.35 mg PO DAILY sertraline 100 mg PO DAILY valacyclovir 500 mg PO Q12H HPI Comments Details: Patient is a 34-year-old female current everyday smoker with anxiety/depression, hypertension and history of thrombocytosis here today for evaluation of joint pain in the setting of a positive rheumatoid factor Patient reports that she has been having a several month history of right shoulder and right hip/buttock pain. Has been followed up by ortho and has had an MRI of her shoulder showing early degenerative changes of the AC joint. At this time she states that her shoulder is in the issue but her right hip has been the most painful. Responds well to meloxicam. Denies prolonged morning stiffness that improves with use Denies pain or stiffness affecting her hands, wrists, feet or elbows Has a family history of rheumatoid arthritis (father with RA) Denies rashes, photosensitivity, alopecia, oral/nasal ulcers, sicca symptoms, lymphadenopathy, chest pain/shortness of breath, foamy urine, lower extremity edema, muscle weakness, Raynaud's Also denies history of seizure, CVA, psychosis, history of kidney problems, history of cytopenias, history of VTE including PE or DVTs [facility] Medical History (Updated 12/03/24 @ 13:46 by Lisa Tejada MD) External hemorrhoid Anal fistula Osteoarthritis of right hip Tobacco use disorder Lipoma of scalp Elevated platelet count Anxiety and depression Body mass index (BMI) of 39.0-39.9 in adult Abscess of right thigh Morbid obesity HTN (hypertension) Depression Surgical History Hx of surgical procedure (~04/29/24) Hx of wisdom tooth extraction Status post excision of lipoma (~01/04/23) History of incision and drainage (~06/2021) Family History Mother Mental health disorder Hypertension Father Hypertension Paternal Grandfather Colon cancer, Onset Age: 64 Social History Household Members: None Housing: Apartment Alcohol intake: current Alcohol intake frequency: holidays/special occasions only Alcohol type: wine and hard liquor Comment: counts correct Patient Tobacco Use Status: Current everyday Tobacco user Tobacco use type: Cigarette Cigarette Packs Per Day: 0.5 Cigarettes Per Day: 10 Years Smoked: 15 e-Cigarette/Vaping Use: Never Used Second Hand Smoke Exposure: Yes service: No Current occupational status: employed 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/[employer] Current occupational exposures/hazards: No Sexual orientation: Straight/Heterosexual Gender identity: Female Cognitive needs: No Hearing needs: No Vision needs: Yes (Contact lenses.) Female Reproductive History Menstrual Age of Menarche: 10 Review of Systems Const Details: Review of Systems Constitutional: Denies fever, chills, weight loss ENT: Denies vision changes, eye pain or eye redness, dental caries, dry mouth GI: Denies nausea, vomiting, diarrhea, abdominal pain, change in BM Pulm: Denies SOB, CORDERO, hemoptysis, wheezing Cards: Denies chest pain, palpitations Skin: Denies Raynaud's, rash, nail changes, photosensitivity, SUPERVISOR [employer]: Denies headaches, weakness, paresthesias, recurrent falls MSK: as per HPI All other systems reviewed and are unremarkable except noted above Physical Exam Vital Signs: Last Vital Signs Pulse 98 12/03/24 09:58 BP 120/72 12/03/24 09:58 Pulse Ox 98 12/03/24 09:58 Oxygen Delivery Method Room Air 12/03/24 09:58 BMI result Body Mass Index 41.6 Vital signs reviewed Physical Examination CONSTITUITIONAL Patient alert and cooperative. Well appearing and in no apparent painful distress HEENT Conjunctiva and sclera clear. ?Pupils equal round and reactive to light. ?No lymphadenopathy. ? CHEST/RESPIRATORY SYSTEM Normal respiratory effort and able to speak in complete sentences. ?Clear to auscultation bilaterally. ?No crackles, rales, rhonchi, wheezes heard. CARDIAC SYSTEM Regular rate and rhythm. ?S1 and S2 heard no murmurs. ?Radial pulses intact bilaterally MSK Hands: ?Good licensed mortician strength bilaterally. No deformities noted. ?No synovitis noted to the MCPs, PIPs or DIPs. ?No tenderness to palpation of these joints. Wrists: ?Full range of motion at the wrists without pain. ?No tenderness to palpation or synovitis noted to the wrists. Elbows: Full range of motion without pain. No tenderness, weakness, swelling, increased warmth or erythema. Shoulders: Full active range of motion bilaterally. Tenderness to palpation of the right AC joint. Negative rotator cuff maneuvers bilaterally Hips: Right hip. Negative JOANN positive FLAIR. Left hip negative JOANN and negative FLAIR. Tenderness to palpation of we right buttock Hip bursa: No tenderness to palpation Knees: ?Full range of motion. ?No tenderness, swelling, increased warmth or erythema.?No effusion or crepitations Ankles: Full range of motion. ?No tenderness, swelling, increased warmth or erythema.? Feet: ?Negative squeeze test. ?No tenderness to palpation or swelling of the MTPs. Tender points:?No tenderness to palpation of the bilateral trapezius, supraspinatus, greater trochanters, anterior costochondral junctions, bilateral gluteal areas, bilateral suboccipital muscle insertions SKIN Skin intact without rashes. Results Reviewed Results Reviewed: Laboratory Tests 11/24/24 06:24 WBC 8.7 RBC 4.93 Hgb 14.9 Hct 43.3 Plt Count 394 Sodium 140 Potassium 3.7 Chloride 106 Carbon Dioxide 25 BUN 22 H Creatinine 0.81 AST 27 ALT 24 Alkaline Phosphatase 69 C-Reactive Protein 0.98 H Immunology labs 11/24/24 06:24 Rheumatoid Factor 23.3 H Assessment & Plan Assessment & Plan (1) Piriformis syndrome of right side: Code(s): G57.01 - Lesion of sciatic nerve, right lower limb Plan: #Piriformis syndrome vs gluteus medius/minimus tendinopathy Patient is a 34-year-old female here today for evaluation of hip pain in the setting of a positive rheumatoid factor. At this time patient's history and examination is not consistent with rheumatoid arthritis. Her exam and history is more consistent with a tendinopathy likely piriformis tendinopathy based on the positive FLAIR maneuver. She may also have a gluteus minimus/medius tendinopathy as well. Exercises given and we will re evaluate in 4 months. If there is no improvement we will pursue MRI of the hip at that time. She can continue taking meloxicam Plan - Exercises given and will refer to PT - Continue meloxicam - RTC 4 months for reevaluation (2) Rheumatoid factor positive: Code(s): R76.8 - Other specified abnormal immunological findings in serum Plan: #Positive Rheumatoid Factor The presence of a positive rheumatoid factor test is generally associated with an increased likelihood of rheumatoid arthritis but can also be present in other autoimmune and non autoimmune conditions as well as healthy individuals. Conditions related to a positive rheumatoid factor include infections including hepatitis-B and C, herpes, HIV and other viral infections, liver disease, sarcoidosis, and certain types of cancer. Rheumatoid factors are found in 80-90% of patients with rheumatoid arthritis, 15-30% of patients with lupus, 80% of patients with Sjogren's syndrome, status 60% of patients with MCTD and 20-30% of patients with systemic sclerosis. It can also be found in normal individuals to 4% of the population especially those with the family history. At this time this patient does not have the prototypical signs or symptoms concerning for rheumatoid arthritis with no involvement of the MCPs, PIPs, MTPs, wrists or any other small joints. Rosina RAGLAND. Incidence of RA in people with persistently raised RF. Meena Rheum Dis. 2000 Mar;59(8):654. doi: 10.1136/uegenio.59.8.654. PMID: 53670065; PMCID: [id number]. Plan I spent 45 minutes reviewing the record and labs, taking a history, examining the patient, discussing the treatment plan, ordering diagnostic work up and documenting in the medical record Orders: Orders PT Evaluation and Treatment Today G57.00 - Lesion of sciatic nerve, unspecified lower limb Coding Level of Care Code New Pt Level 4 (14463) Diagnoses Piriformis syndrome of right side G57.01 Rheumatoid factor positive R76.8
[2024-12-03 09:58] VITALS: BP 120/72; PULSE 98; O2SAT 98; BMI 41.6
--- OUTSIDE RECORDS SUMMARY | 2024-12-03 10:58 | XMS_ITS ---
Author Organization [facility] Address [address] [place] [id number] Care Team Providers Care Oral Pathologist Name Role Phone No, PCP Primary Care Provider Cheryl Rojas Unavailable [phone] REASON FOR VISIT recall Medications Medication SIG (Take, Route, Fr equency, Duration) Notes Start Date End Date Status amLODIPine Active Hydrochlorothiazide Active norethindrone Active hydrOXYzine Active sertraline Active Encounters Encounter Location Date Provider Diagnosis [address] [address] 09/25/2023 Cheryl Bains Plan Of Treatment No Information Progress Notes * AUSTINKofiTori EDOB:[birth year] (34 yo F)Acc No.[id number]:09/25/2023 Dental Notes Patient:?Tori AVILA Provider:Rossy Bains :1990???Age:33 Y???Sex:Female D ate:09/25/2023 Address:[address] [place] [address] [address], [id number] Pcp:PCP No Subjective: * Chief Complaints: * ???1. Recall. * Medical History:? * Medications:?Taking sertrali ne , Taking norethindrone , Taking hydrOXYzine , Taking Hydrochlorothiazide , Taking amLODIPine Objective: * Vitals:? Assessment: Plan: * Treatment: * Images: Billing Information: * Visit Code:? * Procedure Codes:? * Electronic signature of Cheryl Bains on 12/03/2024 at 10:58 AM EDT Sign off status: Pending * Provider:Rossy Bains Date:?09/25/2023 Generated for Girma anna/Madison/Barbara on:?12/03/2024 10:58 AM EDT
--- OUTSIDE RECORDS SUMMARY | 2024-12-03 10:59 | XMS_ITS | Patient Health Record ---
Author Organization [facility] Address [address], [place] [id number] Care Team Providers Care Day Camp Unit Leader Name Role Phone No, PCP Primary Care [...] Insured Coverage Start Date Coverage End Date [facility] Dental Program [address] [place] [address] [id number] Tori Pool Self - patient is the insured 1 Medical (General) History Medical History History ICD Code hypertension
--- OUTSIDE RECORDS SUMMARY | 2024-12-03 10:59 | XMS_ITS ---
Author Organization [facility] Address [address] [place] [phone] Care Team Providers Care Otolaryngology Physician Name Role Phone No, PCP Primary Care Provider Unavailtalita e Cheryl Bains Unavailable [phone] REASON FOR VISIT sensitive teeth Encounters Encounter Location Date Provider Diagnosis [address] [address] 07/16/2023 Cheryl DeFlorio Plan Of Treatment No Information Progress Notes * Tori AVILA EDOB:[birth year] (34 yo F)Acc No.[id number]:07/16/2023 Patient:?Tori AVILA :1990???Age:33 Y???Sex:Female Address: [address], [place], [address] * * Date:?
== END 2024-12-03 10:41 | disposition home or self-care (01) ==
LOC: HO.RHE 09:46
PROVIDERS: PCP Internal Medicine; Visit Provider Student in an Organized Health Care Education/Training Program
DX: G57.01 Lesion of sciatic nerve, right lower limb (principal); R76.8 Other specified abnormal immunological findings in serum
CPT/HCPCS: 99204

== ENCOUNTER → 2024-12-03 09:46 | Outpatient (BNVA) | payer OTHER, SELFPAY | PROVIDERS: PCP Internal Medicine; Visit Provider Student in an Organized Health Care Education/Training Program | DX: M25.511 Pain in right shoulder (principal); M25.551 Pain in right hip; G57.01 Lesion of sciatic nerve, right lower limb; R76.8 Other specified abnormal immunological findings in serum | CPT/HCPCS: 99202 ==

== ENCOUNTER 2025-01-01 13:36 | Outpatient (AMB) | payer OTHER, SELFPAY ==
--- NOTE | 2025-01-01 13:38 | A.OFFVIS_ITS ---
Vital Signs 01/01/25 13:39 Height 5 ft 2 in Weight 231 lb BMI 42.2 BP 125/95 H Blood Pressure Location Rt brachial Position Sitting Pulse 90 Intake Visit Reasons: one month follow up, seton Intake Note: Patient here to follow up Anal fistula. Reports seton is due to be removed today. Patient c/o: no concerns. Reports no changes in medical hx since last visit. Shorer Required: No Accompanied by: Self / Same As Patient Allergies No Known Allergies [No Known Allergies*] Allergy (Verified 01/01/25 13:39) Medication List - Last Reconciled 01/01/25 by Mike Wolf MD amlodipine 5 mg PO DAILY cyclobenzaprine 10 mg PO BEDTIME hydrochlorothiazide 25 mg PO DAILY meloxicam 15 mg PO DAILY norethindrone (contraceptive) (Incassia) 0.35 mg PO DAILY sertraline 100 mg PO DAILY valacyclovir 500 mg PO Q12H HPI HPI one month follow up, seton: Details: She is here for follow-up for anal fistula with a seton in place She says she says she really has had no discharge at all for several weeks now. She denies any pain. She says she feels ?great?. [facility] Medical History (Updated 12/03/24 @ 13:46 by Lisa Tejada MD) External hemorrhoid Anal fistula Osteoarthritis of right hip Tobacco use disorder Lipoma of scalp Elevated platelet count Anxiety and depression Body mass index (BMI) of 39.0-39.9 in adult Abscess of right thigh Morbid obesity HTN (hypertension) Depression Surgical History Hx of surgical procedure (~04/29/24) Hx of wisdom tooth extraction Status post excision of lipoma (~01/04/23) History of incision and drainage (~06/2021) Family History Mother Mental health disorder Hypertension Father Hypertension Paternal Grandfather Colon cancer, Onset Age: 64 Social History Household Members: None Housing: Apartment Alcohol intake: current Alcohol intake frequency: holidays/special occasions only Alcohol type: wine and hard liquor Comment: counts correct Patient Tobacco Use Status: Current everyday Tobacco user Tobacco use type: Cigarette Cigarette Packs Per Day: 0.5 Cigarettes Per Day: 10 Years Smoked: 15 e-Cigarette/Vaping Use: Never Used Second Hand Smoke Exposure: Yes service: No Current occupational status: employed 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[employer] Current occupational exposures/hazards: No Sexual orientation: Straight/Heterosexual Gender identity: Female Cognitive needs: No Hearing needs: No Vision needs: Yes (Contact lenses.) Female Reproductive History Menstrual Age of Menarche: 10 Review of Systems Const Denies chills and Denies fever(s) Card Denies chest pain, Denies dyspnea and Denies dyspnea on exertion Resp Denies cough, Denies dyspnea and Denies dyspnea on exertion GI Denies hematochezia and Denies change in bowel habits Denies hematuria Musc Denies back pain and Denies limited range of motion Neuro Denies focal weakness and Denies convulsions Psych Denies depression and Denies mood swings Physical Exam Vital Signs: Last Vital Signs Pulse 90 01/01/25 13:39 BP 125/95 H 01/01/25 13:39 BMI result Body Mass Index 42.2 Const General: comfortable and no acute distress Resp Effort & Inspection: normal respiratory effort GI Other: Rectal exam shows the seton to be in place but with a very short residual fistula tract that seems to be superficial now, no induration, no discharge, no redness Palpation (GI): Soft to palpation Assessment & Plan Assessment & Plan (1) Anal fistula: Code(s): K60.3 - Anal fistula Category: Medical Plan: I removed the seton by cutting this. She understands the risk of recurrence. She is doing well overall. I will see her in the office in about 1 month to see how she is doing She is comfortable with the plan. Coding Level of Care Code Est Pt Level 2 (42090) Diagnoses Anal fistula K60.3
[2025-01-01 13:39] VITALS: BP 125/95; PULSE 90; BMI 42.2
--- OUTSIDE RECORDS SUMMARY | 2025-01-01 14:14 | XMS_ITS ---
Author Organization [facility] Address [address] [place] [phone] Care Team Providers Care Erosion Control Specialist Name Role Phone No, PCP Primary Care Provider Cheryl Rojas Unavailable [phone] REASON FOR VISIT recall Medications Medication SIG (Take, Route, Fr equency, Duration) Notes Start Date End Date Status amLODIPine Active Hydrochlorothiazide Active norethindrone Active hydrOXYzine Active sertraline Active Encounters Encounter Location Date Provider Diagnosis [address] [address] 09/25/2023 Cheryl Bains Plan Of Treatment No Information Progress Notes * AUSTINKofiTori EDOB:[birth year] (34 yo F)Acc No.[id number]:09/25/2023 Dental Notes Patient:?Tori AVILA Provider:Rossy Bains :1990???Age:33 Y???Sex:Female D ate:09/25/2023 Address:[address] [place] [address] [address], [id number] Pcp:PCP No Subjective: * Chief Complaints: * ???1. Recall. * Medical History:? * Medications:?Taking sertrali ne , Taking norethindrone , Taking hydrOXYzine , Taking Hydrochlorothiazide , Taking amLODIPine Objective: * Vitals:? Assessment: Plan: * Treatment: * Images: Billing Information: * Visit Code:? * Procedure Codes:? * Electronic signature of Cheryl Bains on 01/01/2025 at 02:14 PM EDT Sign off status: Pending * Provider:Rossy Bains Date:?09/25/2023 Generated for Girma anna/Madison/Barbara on:?01/01/2025 02:14 PM EDT
--- OUTSIDE RECORDS SUMMARY | 2025-01-01 14:14 | XMS_ITS ---
Author Organization [facility] Address [address] [place] [phone] Care Team Providers Care Primary Care Pediatrician Name Role Phone No, PCP Primary Care Provider Unavailtalita e Cheryl Bains Unavailable [phone] REASON FOR VISIT sensitive teeth Encounters Encounter Location Date Provider Diagnosis [address] [address] 07/16/2023 Cheryl DeFlorio Plan Of Treatment No Information Progress Notes * Tori AVILA EDOB:[birth year] (34 yo F)Acc No.[id number]:07/16/2023 Patient:?Tori AVILA :1990???Age:33 Y???Sex:Female Address: [address], [place], [address] * * Date:?
--- OUTSIDE RECORDS SUMMARY | 2025-01-01 14:14 | XMS_ITS | Patient Health Record ---
Author Organization [facility] Address [address] [place], [place] [phone] Care Team Providers Care Supervisor Malt [employer] Name Role Phone No, PCP Primary Care [...] Insured Coverage Start Date Coverage End Date [facility] Dental Program [address] [place] [id number] Tori Pool Self - patient is the insured 1 Medical (General) History Medical History History ICD Code hypertension
== END 2025-01-01 13:54 | disposition home or self-care (01) ==
LOC: HO.HGS 13:37
PROVIDERS: PCP Internal Medicine; Visit Provider Surgery
DX: K60.30 Anal fistula, unspecified (principal)
CPT/HCPCS: 99212

== ENCOUNTER → 2025-01-01 13:36 | Outpatient (BNVA) | payer OTHER, SELFPAY | PROVIDERS: PCP Internal Medicine; Visit Provider Surgery | DX: K60.30 Anal fistula, unspecified (principal) | CPT/HCPCS: 99212 ==

== ENCOUNTER 2025-02-05 13:19 | Outpatient (AMB) | payer OTHER, SELFPAY ==
--- OUTSIDE RECORDS SUMMARY | 2023-09-25 10:00 | XMS_ITS ---
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 Name Role Phone ZZArccarleyve - DO NOT USE, no PCP Primary Care Prov ider Unavailable Cheryl Bains Unavailable [phone] REASON FOR VISIT recall Medications Medication SIG (Take, Route, Fr equency, Duration) Notes Start Date End Date Status amLODIPine Active Hydrochlorothiazide Active norethindrone Active hydrOXYzine Active sertraline Active Encounters Encounter Location Date Provider Diagnosis [address] [address] 09/25/2023 Cheryl Hanho Plan Of Treatment No Information Progress Notes * Tori AVILA EDOB:[birth year] (34 yo F)Acc No.[id number]:09/25/2023 Dental Notes Patient: Tori COOPER Provider: Liliane Bains :1990 A ge:33 Y S ex:Female Date:09/25/2023 Address:[address], [id number] Pcp:no PCP ZZAmaria - DO NO T USE Subjective: * Chief Complaints: * 1 . Recall. * Medical History: * Medications: T aking sertraline , Taking norethindrone , Taking hydrOXYzine , Taking Hydrochlorothiazide , Taking amLODIPine Objective: * Vitals: Assessment: Plan: * Treatment: * Images: Billing Information: * Visit Code: * Procedure Codes: * Electronic signature of Cheryl Bains on 02/05/2025 at 02:26 PM EDT Sign off status: Pending * Provider: Liliane Bains Date: 0 09/25/2023 Generated for Girma anna/Madison/Rejiitting on: 0 02/05/2025 02:26 PM EDT
--- NOTE | 2025-02-05 13:31 | MHC.OFFVIS ---
Vital Signs 02/05/25 13:36 Height 5 ft 2 in Weight 230 lb BMI 42.1 BP 129/86 Blood Pressure Location Lt brachial Position Sitting Pulse 91 Intake Visit Reasons: one month follow up, seton Intake Note: Patient is seen in office for one month follow up visit, post seton removal. Pt c/o: denies any concerns at the time of visit Synthetic Staple Extruder Required: No Accompanied by: Self / Same As Patient Allergies No Known Allergies (No Known Allergies*) Allergy (Verified 02/05/25 13:37) Medication List - Last Reconciled 02/05/25 by iMke Wolf MD amlodipine 5 mg PO DAILY cyclobenzaprine 10 mg PO BEDTIME hydrochlorothiazide 25 mg PO DAILY meloxicam 15 mg PO DAILY norethindrone (contraceptive) (Incassia) 0.35 mg PO DAILY sertraline 100 mg PO DAILY trazodone 100 mg PO BEDTIME PRN 90 days valacyclovir 500 mg PO Q12H HPI HPI one month follow up, seton: Details: She is here for follow-up for her anal fistula. She had a seton in place for a long time and has not remove this last month. She denies any new complaints. She denies any new complaints. She denies any drainage or any pain or swelling. [facility] Medical History External hemorrhoid Anal fistula Osteoarthritis of right hip Tobacco use disorder Lipoma of scalp Elevated platelet count Anxiety and depression Body mass index (BMI) of 39.0-39.9 in adult Abscess of right thigh Morbid obesity HTN (hypertension) Depression Surgical History Hx of surgical procedure (~04/29/24) Hx of wisdom tooth extraction Status post excision of lipoma (~01/04/23) History of incision and drainage (~06/2021) Family History Mother Mental health disorder Hypertension Father Hypertension Paternal Grandfather Colon cancer, Onset Age: 64 Social History Household Members: None Housing: Apartment Alcohol intake: current Alcohol intake frequency: holidays/special occasions only Alcohol type: wine and hard liquor Comment: counts correct Patient Tobacco Use Status: Current everyday Tobacco user Tobacco use type: Cigarette Cigarette Packs Per Day: 0.5 Cigarettes Per Day: 10 Years Smoked: 15 e-Cigarette/Vaping Use: Never Used Second Hand Smoke Exposure: Yes service: No Current occupational status: employed 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[employer] Current occupational exposures/hazards: No Sexual orientation: Straight/Heterosexual Gender identity: Female Cognitive needs: No Hearing needs: No Vision needs: Yes (Contact lenses.) Female Reproductive History Menstrual Age of Menarche: 10 Review of Systems Const Denies chills and Denies fever(s) Card Denies chest pain Resp Denies cough GI Denies abdominal pain Physical Exam Const General: comfortable and no acute distress Resp Effort & Inspection: normal respiratory effort GI Other: Rectal exam shows no persistent induration, no discharge, old fistula tract still partially open but dry, no tenderness or redness Assessment & Plan Assessment & Plan (1) Anal fistula: Code(s): K60.3 - Anal fistula Category: Medical Plan: This was treated with a cutting seton. I have removed the seton last month and she continues to do well There is no suggestion of any recurrent fistula or any abscess Therefore instructed her to follow up in the office on a p.r.n. basis. Coding Level of Care Code Est Pt Level 2 (33191) Diagnoses Anal fistula K60.3
[2025-02-05 13:36] VITALS: BP 129/86; PULSE 91; BMI 42.1
== END 2025-02-05 14:03 | disposition home or self-care (01) ==
LOC: HO.HGS 13:19
PROVIDERS: PCP Internal Medicine; Visit Provider Surgery
DX: K60.30 Anal fistula, unspecified (principal)
CPT/HCPCS: 99212

== ENCOUNTER → 2025-02-05 13:19 | Outpatient (BNVA) | payer OTHER, SELFPAY | PROVIDERS: PCP Internal Medicine; Visit Provider Surgery | DX: K60.30 Anal fistula, unspecified (principal) | CPT/HCPCS: 99212 ==

== ENCOUNTER 2025-04-03 15:58 | Outpatient (AMB) | payer OTHER, SELFPAY ==
[2025-04-03 16:01] VITALS: BP 120/64; PULSE 100; O2SAT 99; BMI 43.1
--- NOTE | 2025-04-03 16:01 | A.OFFVIS_ITS ---
Vital Signs 04/03/25 16:01 Height 5 ft 2 in Weight 235 lb 10.786 oz BMI 43.1 BP 120/64 Blood Pressure Location Lt brachial Position Sitting Pulse 100 Pulse Source Pulse Oximeter Pulse Oximetry (%) 99 Oxygen Delivery Method Room Air Intake Visit Reasons: RA Intake Note: Patient presents for RA follow up. Allergies No Known Allergies (No Known Allergies*) Allergy (Verified 04/03/25 16:04) Medication List - Last Reconciled 04/03/25 by Lisa Tejada MD amlodipine 5 mg PO DAILY cyclobenzaprine 10 mg PO BEDTIME hydrochlorothiazide 25 mg PO DAILY meloxicam 15 mg PO DAILY norethindrone (contraceptive) (Incassia) 0.35 mg PO DAILY sertraline 100 mg PO DAILY trazodone 100 mg PO BEDTIME PRN 90 days valacyclovir 500 mg PO Q12H HPI Comments Details: Patient is a 34-year-old female current everyday smoker with anxiety/depression, hypertension and history of thrombocytosis here today for follow up Interval History: Patient last seen 12/03/24 with me - New patient visit for evaluation of hip pain in the setting of elevated RF - No other sx concerning for inflammatory arthritis - Exam consistent with piriformis syndrome - Given exercises Today - Not on any rheum medications - Exercises did not improve the hip pain Rheumatologic History: Initial History: Patient is a 34-year-old female current everyday smoker with anxiety/depression, hypertension and history of thrombocytosis here today for evaluation of joint pain in the setting of a positive rheumatoid factor Patient reports that she has been having a several month history of right shoulder and right hip/buttock pain. Has been followed up by ortho and has had an MRI of her shoulder showing early degenerative changes of the AC joint. At this time she states that her shoulder is in the issue but her right hip has been the most painful. Responds well to meloxicam. Denies prolonged morning stiffness that improves with use Denies pain or stiffness affecting her hands, wrists, feet or elbows Has a family history of rheumatoid arthritis (father with RA) Denies rashes, photosensitivity, alopecia, oral/nasal ulcers, sicca symptoms, lymphadenopathy, chest pain/shortness of breath, foamy urine, lower extremity edema, muscle weakness, Raynaud's Also denies history of seizure, CVA, psychosis, history of kidney problems, history of cytopenias, history of VTE including PE or DVTs Current Rheumatology Medication(s): [facility] Medical History External hemorrhoid Anal fistula Osteoarthritis of right hip Tobacco use disorder Lipoma of scalp Elevated platelet count Anxiety and depression Body mass index (BMI) of 39.0-39.9 in adult Abscess of right thigh Morbid obesity HTN (hypertension) Depression Surgical History Hx of surgical procedure (~04/29/24) Hx of wisdom tooth extraction Status post excision of lipoma (~01/04/23) History of incision and drainage (~06/2021) Family History Mother Mental health disorder Hypertension Father Hypertension Paternal Grandfather Colon cancer, Onset Age: 64 Social History Household Members: None Housing: Apartment Alcohol intake: current Alcohol intake frequency: holidays/special occasions only Alcohol type: wine and hard liquor Comment: counts correct Patient Tobacco Use Status: Current everyday Tobacco user Tobacco use type: Cigarette Cigarette Packs Per Day: 0.5 Cigarettes Per Day: 10 Years Smoked: 15 e-Cigarette/Vaping Use: Never Used Second Hand Smoke Exposure: Yes service: No Current occupational status: employed 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[employer] Current occupational exposures/hazards: No Sexual orientation: Straight/Heterosexual Gender identity: Female Cognitive needs: No Hearing needs: No Vision needs: Yes (Contact lenses.) Female Reproductive History Menstrual Age of Menarche: 10 Review of Systems Const Details: Review of Systems Constitutional: Denies fever, chills, weight loss ENT: Denies vision changes, eye pain or eye redness, dental caries, dry mouth GI: Denies nausea, vomiting, diarrhea, abdominal pain, change in BM Pulm: Denies SOB, CORDERO, hemoptysis, wheezing Cards: Denies chest pain, palpitations Skin: Denies Raynaud's, rash, nail changes, photosensitivity, SMALL BUSINESS DIRECTOR: Denies headaches, weakness, paresthesias, recurrent falls MSK: as per HPI All other systems reviewed and are unremarkable except noted above Physical Exam Exam Exam: Exam deferred Vital Signs: Last Vital Signs Pulse 100 04/03/25 16:01 BP 120/64 04/03/25 16:01 Pulse Ox 99 04/03/25 16:01 Oxygen Delivery Method Room Air 04/03/25 16:01 BMI result Body Mass Index 43.1 Results Reviewed Results Reviewed: Laboratory Tests 11/24/24 06:24 WBC 8.7 RBC 4.93 Hgb 14.9 Hct 43.3 Plt Count 394 Sodium 140 Potassium 3.7 Chloride 106 Carbon Dioxide 25 BUN 22 H Creatinine 0.81 AST 27 ALT 24 Alkaline Phosphatase 69 C-Reactive Protein 0.98 H Immunology labs 11/24/24 06:24 Rheumatoid Factor 23.3 H XR Hip 09/2023 FINDINGS: The bilateral sacroiliac joints are symmetric. Mild degenerative changes in the right hip with mild hypertrophic change and joint space narrowing. Alignment preserved. Left hip joint alignment preserved on single AP view. IMPRESSION: Mild degenerative changes in the right hip. Assessment & Plan Assessment & Plan (1) Osteoarthritis of right hip: Code(s): M16.11 - Unilateral primary osteoarthritis, right hip Category: Medical Qualifiers: Osteoarthritis type: primary Qualified Code(s): M16.11 - Unilateral primary osteoarthritis, right hip Plan: #Right Hip Pain Patient is a 34-year-old female who is here today for follow up. Initially presented to Rheumatology for the evaluation of right hip pain in the setting of an elevated rheumatoid factor however there was no evidence of underlying rheumatoid arthritis and x-rays from the hip showed early osteoarthritic changes and her examination was consistent with piriformis syndrome. She was given exercises but despite consistently doing these exercises she had no improvement in her pain and continues to have severe pain of her right hip. We will check an MRI to further evaluate the source of this pain Plan - Right hip MRI - RTC after results Plan I spent 20 minutes reviewing the record and labs, taking a history, examining the patient, discussing the treatment plan, ordering diagnostic work up and documenting in the medical record Orders: Orders MR hip RT wo con 04/03/25 M16.11 - Unilateral primary osteoarthritis, right hip Coding Level of Care Code Est Pt Level 3 (90978) Diagnoses Primary osteoarthritis of right hip M16.11 Osteoarthritis type: primary
--- OUTSIDE RECORDS SUMMARY | 2025-04-03 16:01 | XMS_ITS | Patient Health Record ---
Author Organization [facility] Address [address] [place], [place] [phone] Care Team Providers Care Plumber Pipe Fitting Name Role Phone NO, PCP Primary Care Provider Allergies No Known Allergies Reason For Referral No Information Medications Medication SIG (Take, Route, Fr equency, Duration) Notes Start Date End Date Status amLODIPine Active Hydrochlorothiazide Active norethindrone Active hydrOXYzine Active sertraline Active Plan Of Treatment No Information Insurance Providers Payer Name Payer Address Payer Phone Subscriber Number Group Number Insured Name Patient Relationship to Insured Coverage Start Date Coverage End Date [facility] Program [address] [place] [phone] [id number] Tori Pool Self - patient is the insured 1 Medical (General) History Medical History History ICD Code hypertension
== END 2025-04-03 16:29 | disposition home or self-care (01) ==
LOC: HO.RHES 15:59
PROVIDERS: PCP Internal Medicine; Visit Provider Student in an Organized Health Care Education/Training Program
DX: M16.11 Unilateral primary osteoarthritis, right hip (principal)
CPT/HCPCS: 99213

== ENCOUNTER → 2025-04-03 15:58 | Outpatient (BNVA) | payer OTHER, SELFPAY | PROVIDERS: PCP Internal Medicine; Visit Provider Student in an Organized Health Care Education/Training Program | DX: M16.11 Unilateral primary osteoarthritis, right hip (principal) | CPT/HCPCS: 99212 ==

== ENCOUNTER → 2025-05-05 18:45 | Outpatient (BNV) | payer OTHER, SELFPAY | PROVIDERS: PCP Internal Medicine; Visit Provider Radiology Diagnostic Radiology | DX: M16.11 Unilateral primary osteoarthritis, right hip (principal); M85.851 Other specified disorders of bone density and structure, right thigh; N83.202 Unspecified ovarian cyst, left side | CPT/HCPCS: 73721 ==

== ENCOUNTER 2025-05-05 18:51 | Outpatient (REF) | payer OTHER, SELFPAY ==
--- OUTSIDE RECORDS SUMMARY | 2025-05-02 17:00 | XMS_ITS ---
Author Organization [facility] Address [address] [place] [address] Care Team Providers Care Offbearer Sewer Pipe Name Role Phone NO, PCP Primary Care Provider Migration, Provider Unavailable Unavailable [facility]AS[facility]ISIT [facility] Encounter Medications Medication SIG (Take, Route, [...] Active Encounters Encounter Location Date Provider Diagnosis [facility] [address] [place] [address] 05/02/2025 Provider Migration Plan Of Treatment No Information Progress Notes * Tori POOL EDOB:[birth year] (34 yo F)Acc No.[id number]:05/02/2025 Patient: Andrew Tori MILTON Provider: :1990 A ge:34 Y S ex:Female Date:05/02/2025 [facility] [address] [place], [place] Pcp:PCP NO Subjective: * Chief Complaints: * [...] Electronic signature of Prov ider Migration on 05/05/2025 at 07:19 PM EDT Sign off status: Pending * Provider: Date: 05/02/2025 Generated for Girma anna/Madison/Rejiitting on: 05/05/2025 07:19 PM EDT
--- NOTE | ~2025-05-05 | MR_ITS ---
EXAMINATION: MR HIP WITHOUT CONTRAST, RIGHT CLINICAL INFORMATION: Unilateral primary osteoarthritis, right hip. Right hip pain. COMPARISON: Correlated to x-ray dated October 11, 2023. TECHNIQUE: MRI of the right hip was obtained using routine sequences on a high-field strength magnet. FINDINGS: There is a focal 5 mm bone marrow T2 fat-sat signal abnormality within the greater trochanter, right femur. There is no bone marrow T2 fat-sat signal right acetabulum origin of the femoral head neck intertrochanteric region and proximal diaphysis of the right femur. There is mild asymmetric joint space narrowing, right coxofemoral joint. No gross joint effusion. There is fatty bone marrow of the femoral head and greater trochanter right femur. Normal alignment between the femoral head and the acetabulum, right coxofemoral joint. No signal abnormality within the muscles in the right hip. Nonspecific prominent lymph nodes, right inguinal region. Flow-void signal within the main vessels is normal. No right inguinal hernia. Fluid-filled bladder. 3 cm fluid signal characteristic lesion/structure left adnexa. Multiple nabothian cysts in the cervix Scattered follicles right adnexa.. No ascites in the included peritoneal cavity. Appendix is normal. MR/MR hip RT wo con IMPRESSION: No acute fracture or dislocation, right hip. No joint effusion. Fatty bone marrow, head and greater trochanter right femur. 3 cm cystic lesion left ovary. Electronically signed by: Gavin Andrews MD 05/06/2025 07:15 AM EDT
--- OUTSIDE RECORDS SUMMARY | 2025-05-05 19:19 | XMS_ITS | Patient Health Record ---
Author Organization [facility] Address [address] [place] [address] Care Team Providers Care Director Of Safety Name Role Phone NO, PCP Primary Care Provider Migration, Provider Unavailable Unavailable Allergies No Known Allergies Reason For Referral No Information Medications Medication SIG (Take, Route, Frequency, Duration) [...] Active Encounters Encounter Location Date Provider Diagnosis [facility] [address] [place] [address] 05/02/2025 Provider Migration Plan Of Treatment No Information Insurance Providers Payer Name Payer Address Payer Phone Subscriber Number Group Number Insured Name Patient Relationship to Insured Coverage Start Date Coverage End Date [place] [employer] [address] [place] [phone] [id number] Tori Pool Self - patient is the insured 12/04/202 1 Medical (General) History Medical History History ICD Code hypertension
== END 2025-05-05 18:52 | disposition home or self-care (01) ==
LOC: HO.MRI 18:51
PROVIDERS: PCP Internal Medicine; Visit Provider Student in an Organized Health Care Education/Training Program
DX: M16.11 Unilateral primary osteoarthritis, right hip (principal)
CPT/HCPCS: 73721

== ENCOUNTER 2025-06-11 13:17 | Outpatient (AMB) | payer OTHER, SELFPAY ==
--- OUTSIDE RECORDS SUMMARY | 2025-05-02 17:00 | XMS_ITS ---
Author Organization [facility] Address [address] [place] [address] Care Team Providers Care Encoding Clerk Name Role Phone NO, PCP Primary Care Provider Migration, Provider Unavailable Unavailable REAS[facility] FOR VISIT [facility] Encounter Medications Medication SIG (Take, Route, [...] Active Encounters Encounter Location Date Provider Diagnosis [facility] [address] [place] [address] 05/02/2025 Provider Migration Plan Of Treatment No Information Progress Notes * Tori POOL EDOB:[birth year] (34 yo F)Acc No.[id number]:05/02/2025 Patient: Andrew Tori MILTON Provider: :1990 A ge:34 Y S ex:Female Date:05/02/2025 [facility] [address] [place], [id number] Pcp:PCP NO Subjective: * Chief Complaints: * [...] Electronic signature of Prov ider Migration on 06/11/2025 at 04:46 PM EDT Sign off status: Pending * Provider: Date: 0 05/02/2025 Generated for Girma anna/Madison/Barbara on: 04:46 PM EDT
--- NOTE | 2025-06-11 13:27 | A.OFFPC_ITS ---
Vital Signs 06/11/25 13:28 Height 5 ft 2 in Weight 227 lb 8 oz BMI 41.6 BP 110/60 Blood Pressure Location Rt brachial Position Sitting Pulse 109 H Pulse Source Pulse Oximeter Temp 97.1 F Temp Source Temporal Artery Scan Pulse Oximetry (%) 98 Oxygen Delivery Method Room Air Intake Visit Reasons: 6 month f/u Intake Note: Patient is here to follow up on HTN. Straw Baler Required: No Smocking Machine Operator: Not Required per policy Accompanied by: Self / Same As Patient Allergies No Known Allergies (No Known Allergies*) Allergy (Verified 06/11/25 13:28) Tobacco use date assessed: 06/11/25 Dental Screening Dental Screen Date: 11/13/24 [facility] Medical History External hemorrhoid Anal fistula Osteoarthritis of right hip Tobacco use disorder Lipoma of scalp Elevated platelet count Anxiety and depression Body mass index (BMI) of 39.0-39.9 in adult Abscess of right thigh Morbid obesity HTN (hypertension) Depression Surgical History Hx of surgical procedure (~04/29/24) Hx of wisdom tooth extraction Status post excision of lipoma (~01/04/23) History of incision and drainage (~06/2021) Family History Mother Mental health disorder Hypertension Father Hypertension Paternal Grandfather Colon cancer, Onset Age: 64 Social History Household Members: None Housing: Apartment Alcohol intake: current Alcohol intake frequency: holidays/special occasions only Alcohol type: wine and hard liquor Comment: counts correct Patient Tobacco Use Status: Current everyday Tobacco user Tobacco use type: Cigarette Cigarette Packs Per Day: 0.5 Cigarettes Per Day: 10 Years Smoked: 15 e-Cigarette/Vaping Use: Never Used Second Hand Smoke Exposure: Yes service: No Current occupational status: employed 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 1. Little interest or pleasure in doing things: not at all 2. Feeling down, depressed, or hopeless: not at all 3. Trouble falling or staying asleep, or sleeping too much: not at all 4. Feeling tired or having little energy: not at all 5. Poor appetite or overeating: several days 6. Feeling bad about yourself - or that you are a failure or have let yourself or your family down: not at all 7. Trouble concentrating on things, such as reading the newspaper or watching television: not at all 8. Moving or speaking so slowly that other people could have noticed. Or the opposite - being so fidgety or restless that you have been moving around a lot more than usual: not at all 9. Thoughts that you would be better off or of hurting yourself in some way: not at all Total score: 1 Depression Screening Interpretation: Positive Depression Screening Done: Yes Source: Developed by Drs. Samuel Dasilva, Noni Espinoza, Sal Bunch and colleagues, with an educational sarah from [employer]. Thrive Questionnaire Date Thrive assessed: 06/04/25 I am a: Patient What is your living situation today?: I have a steady place to live Within the past 12 months, did the food you bought not last and you didn't have the money to get more?: Never true Within the past 12 months, did you worry whether your food would run out before you got money to buy more?: Never true Do you have trouble paying for medicines?: No Do you have trouble getting transportation to medical appointments?: No Do you have trouble paying your heating and electricity bill?: No Do you have trouble taking care of your child, family member or friend?: No Do you have trouble with day-to-day activities such as bathing, preparing meals, shopping, managing finances, etc.?: No Are you currently unemployed and looking for a job?: No Are you interested in more education?: No Please select the resources that you would like help with: None Currently or been in a relationship where the following occur: No concerns reported THRIVE Score: 0 AUDIT C Alcohol Use Questionnaire (AUDIT-C) 1. How often do you have a drink containing alcohol?: Monthly or less Total Score: 1 DONALDO-7 AMB Questionnaire DONALDO-7 Date DONALDO - 7 assessed: 11/13/24 Feeling nervous, anxious, or on edge: 0 = Not at all Not being able to stop or control worryin = Not at all Worrying too much about different things: 0 = Not at all Trouble relaxin = Not at all Being so restless that it is hard to sit still: 0 = Not at all Becoming easily annoyed or irritable: 0 = Not at all Feeling afraid as if something awful might happen: 0 = Not at all Total DONALDO-7 score (0-4 normal; 5-9 mild; 10-14 moderate; 15-21 severe): 0 Source: Developed by Drs. Samuel Dasilva, Noni Espinoza, Sal Bunch and colleagues, with an educational sarah from [employer]. Physical exam (Primary Care) Vital Signs: Last Vital Signs Temp 97.1 F 06/11/25 13:28 Pulse 109 H 06/11/25 13:28 BP 110/60 06/11/25 13:28 Pulse Ox 98 06/11/25 13:28 Oxygen Delivery Method Room Air 06/11/25 13:28 BMI result Body Mass Index 41.6 Tobacco/Smoking Status: Tobacco use Status Tobacco use date assessed 06/11/25 06/11/25 13:32 Patient Tobacco Use Status Current everyday Tobacco 06/11/25 13:32 Tobacco use type Cigarette 06/11/25 13:32 e-Cigarette/Vaping Use Never Used 06/11/25 13:32 PHQ-9: PHQ-9 Score PHQ-9: Total score 1 06/11/25 13:32 Depression Screening Interpretation: Positive Thrive Assessment: Date of Thrive Assessment Date Thrive assessed 06/04/25 06/11/25 13:32 Currently or been in a relationship where the following occur: No concerns reported Coding Level of Care Code Est Pt Level 4 (72693) Complex EM visit Add On G2211 Diagnoses Primary osteoarthritis of right hip M16.11 Osteoarthritis type: primary Internal derangement of right shoulder M24.811 Assessment & Plan Assessment & Plan (1) Osteoarthritis of right hip: Code(s): M16.11 - Unilateral primary osteoarthritis, right hip Category: Medical Qualifiers: Osteoarthritis type: primary Qualified Code(s): M16.11 - Unilateral primary osteoarthritis, right hip Plan: History of Present Illness - The patient is a 34-year-old female presenting with severe pain in the right hip and right shoulder. - Reports a bone spur in the right hip, confirmed by MRI, causing significant pain unrelieved by meloxicam. - Engages in stretching exercises at home without relief. - Arthritis in the right shoulder also contributes to the pain. - Rheumatology consultation suggested stretching, with MRI confirming a bone spur. - Elevated rheumatoid factor noted but deemed insignificant for arthritis by director medical economics. 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 Review of Systems - Musculoskeletal: Reports severe pain in the right hip and right shoulder, unrelieved by meloxicam. - General: Denies any other health concerns or medication refills needed. Physical Exam General: Cooperative and healthy appearing Nutritional Appearance: Well nourished Orientation/consciousness: Patient oriented x3 Limitations: No limitations Head: Normal to inspection General: Appearance normal, both eyes and all related structures Neck: Normal visual inspection Chest: Normal palpation of entire chest wall Respiratory: Everything is good. ormal respiratory effort Neurology: Patient oriented x3 Results - Imaging: MRI confirmed the presence of a bone spur in the right hip. - Laboratory: Elevated rheumatoid factor noted, deemed insignificant for arthritis. Plan - Referral to physical therapy for hip pain management. - Advised to verify insurance coverage for GLP-1 prescription. - Influenza vaccination declined, no further action needed. Discussion Notes I discussed the option of physical therapy for the patient's hip pain due to a bone spur and arranged for a referral. We also talked about the possibility of prescribing a GLP-1, and I advised the patient to check with her insurance provider regarding coverage. The patient declined the influenza vaccination, and we agreed no further action was necessary at this time. Patient Instructions - Follow up with physical therapy for hip pain management. - Contact your insurance provider to inquire about GLP-1 coverage. - No need for influenza vaccination at this time as per your decision. (2) Internal derangement of right shoulder: Code(s): M24.811 - Other specific joint derangements of right shoulder, not elsewhere classified Category: Medical Plan: As above, PT ordered Orders: Orders PT Evaluation and Treatment Today M16.11 - Unilateral primary osteoarthritis, right hip, M24.811 - Other specific joint derangements of right shoulder, not elsewhere classified
[2025-06-11 13:28] VITALS: BP 110/60; PULSE 109; TEMP 36.2; O2SAT 98; BMI 41.6
--- OUTSIDE RECORDS SUMMARY | 2025-06-11 16:47 | XMS_ITS | Patient Health Record ---
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
== END 2025-06-11 13:45 | disposition home or self-care (01) ==
LOC: HO.HMCH 13:18
PROVIDERS: PCP Internal Medicine; Visit Provider Internal Medicine
DX: M16.11 Unilateral primary osteoarthritis, right hip (principal); M24.811 Other specific joint derangements of right shoulder, not elsewhere classified

== ENCOUNTER → 2025-06-11 13:17 | Outpatient (BNVA) | payer OTHER, SELFPAY | PROVIDERS: PCP Internal Medicine; Visit Provider Internal Medicine | DX: I10 Essential (primary) hypertension (principal); M16.11 Unilateral primary osteoarthritis, right hip; M24.811 Other specific joint derangements of right shoulder, not elsewhere classified | CPT/HCPCS: 99212 ==

== ENCOUNTER 2025-06-18 12:42 | Outpatient (REF) | payer OTHER, SELFPAY | END 2025-06-18 12:43 | disposition home or self-care (01) | LOC: HO.LAB 12:42 | PROVIDERS: PCP Internal Medicine; Visit Provider Advanced Practice Midwife | DX: Z01.419 Encounter for gynecological examination (general) (routine) without abnormal findings (principal); N83.209 Unspecified ovarian cyst, unspecified side; N89.8 Other specified noninflammatory disorders of vagina | CPT/HCPCS: 99395 ==

== ENCOUNTER 2025-06-18 12:42 | Outpatient (AMB) | payer OTHER, SELFPAY ==
--- OUTSIDE RECORDS SUMMARY | 2025-05-02 17:00 | XMS_ITS ---
Author Organization [facility] Address [address] [place] [address] Care Team Providers Care Vacation Guide Name Role Phone NO, PCP Primary Care Provider [phone] Migration, Provider Unavailable Unavailable REASON FOR [facility]ISIT [facility] Encounter Medications Medication SIG (Take, [...] Active Encounters Encounter Location Date Provider Diagnosis [facility] [address] [place] [address] 05/02/2025 Provider Migration Plan Of Treatment No Information Progress Notes * Tori POOL EDOB:[birth year] (34 yo F)Acc No.[id number]:05/02/2025 Patient: Andrew Tori MILTON Provider: :1990 A ge:34 Y S ex:Female Date:05/02/2025 Address: [address] [facility] [address] [place], [place] Pcp:PCP NO Subjective: * Chief Complaints: * [...] Electronic signature of Prov ider Migration on 06/18/2025 at 03:33 PM EDT Sign off status: Pending * Provider: Date: 0 05/02/2025 Generated for Girma anna/Madison/Rejiitting on: 03:33 PM EDT
--- NOTE | 2025-06-18 12:57 | MHC.OFFVIS ---
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 Progesterone only pill user, history of hypertension. Has monthly bleeding and sometimes random spotting. Extra pill on time. Not interested in Mirena IUD. Has a 3cm cyst found on MR. She is not having pain. Currently is sexually active. She tries to eat healthy and stays active with exercise. amily history of breast, ovarian or colon cancer. Last pap smear 2021, negative. [facility] Medical History Vaginal discharge Ovarian cyst External hemorrhoid Anal fistula Osteoarthritis of right hip Tobacco use disorder Lipoma of scalp Elevated platelet count Anxiety and depression Body mass index (BMI) of 39.0-39.9 in adult Abscess of right thigh Morbid obesity HTN (hypertension) Depression Surgical History Hx of surgical procedure (~04/29/24) Hx of wisdom tooth extraction Status post excision of lipoma (~01/04/23) History of incision and drainage (~06/2021) Family History Mother Mental health disorder Hypertension Father Hypertension Paternal Grandfather Colon cancer, Onset Age: 64 Family/Other History of breast cancer Colon cancer Ovarian cancer Social History Household Members: None Housing: Apartment Alcohol intake: current Alcohol intake frequency: holidays/special occasions only Alcohol type: wine and hard liquor Comment: counts correct Patient Tobacco Use Status: Current everyday Tobacco user Tobacco use type: Cigarette Cigarette Packs Per Day: 0.5 Cigarettes Per Day: 10 Years Smoked: 15 e-Cigarette/Vaping Use: Never Used Second Hand Smoke Exposure: Yes service: No Current occupational status: employed 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/[employer] Current occupational exposures/hazards: No Sexual orientation: Straight/Heterosexual Gender identity: Female Cognitive needs: No Hearing needs: No Vision needs: Yes (Contact lenses.) Female Reproductive History Menstrual Age of Menarche: 10 Date of last menstrual period: 05/29/25 control method: pills Total pregnancies: 1 Number of Living Children: 0 Ab induced: 1 Date of last pap smear: 01/09/22 (neg pap and hpv) Review of Systems Const All systems reviewed & are unremarkable except as noted in HPI and below Reports as per HPI Eyes Reports no additional complaints ENT Reports no additional complaints Card Reports no additional complaints Resp Reports no additional complaints GI Reports as per HPI and Reports no additional complaints Reports as per HPI Musc Reports no additional complaints Skin/Breast Reports as per HPI Neuro Reports no additional complaints Psych Reports no additional complaints Endo Reports no additional complaints Jonatan/Lymph Reports no additional complaints Aller/Immun Reports no additional complaints Physical Exam Vital Signs: Last Vital Signs BP 110/72 06/18/25 12:58 BMI result Body Mass Index 41.3 Const General: cooperative, healthy appearing, no acute distress, well developed and alert Orientation/consciousness: patient oriented x3 HEENT Head: Yes normal to inspection Eyes General: appearance normal, both eyes and all related structures Neck Neck: Yes normal visual inspection Thyroid: Thyroid normal Chest Chest palpation & inspection: normal inspection of the chest and other (no puckering, dimpling, peau de orange, retraction, discharge, masses) Breast/axilla inspection: normal inspection of the breasts Breast/axilla palpation: normal palpation of the breasts Resp Effort & Inspection: normal respiratory effort GI Inspection: Yes normal to inspection Palpation (GI): Soft to palpation Rectal Exam - Female: deferred General: Yes bladder normal to palpation External Female Exam: normal external appearance and normal appearance of the urethra Speculum Exam - Vagina: normal appearance of the vagina, normal palpation and abnormal vaginal discharge frothy Speculum Exam - Cervix: normal appearance of the cervix and normal palpation Bimanual exam- vagina & uterus: normal bimanual exam, normal palpation, uterine size normal, bladder normal to palpation, normal palpation and non-tender Bimanual Exam- Adnexa, other: no masses Skin General skin exam: no rashes or lesions noted Rashes: no rashes Neuro General: patient oriented x3 Cognition (Neuro): normal cognition Extrem General: Yes normal to inspection Psych Attitude: cooperative Thought process: Normal thought process present Assessment & Plan Assessment & Plan (1) Encounter for well woman exam with routine gynecological exam: Code(s): Z01.419 - Encounter for gynecological examination (general) (routine) without abnormal findings Category: Medical Plan: Discussed: Current recommendations for pap smears per ASCCP guidelines. Breast awareness and periodic breast exams. Maintain a healthy lifestyle including a well balanced diet and routine exercise. Rx sent in for progesterone only pills. Patient verbalizes understanding and agrees to the plan of care. She was given opportunity to ask questions and all questions were answered to the best of my ability. 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 This note is constructed using voice recognition software. While every effort has been made to ensure accuracy, biotech production specialist errors may have been included. (2) Ovarian cyst: Code(s): N83.209 - Unspecified ovarian cyst, unspecified side Category: Medical Plan: Plan pelvic ultrasound and follow up in person call sooner if there is any pain or concerns with findings today. The patient expressed understanding and agreement with the plan of care. All of her questions and concerns were addressed to the best of my ability. (3) Vaginal discharge: Code(s): N89.8 - Other specified noninflammatory disorders of vagina Category: Medical Plan: BV panel and GC chlamydia obtained await results for final plan of care. Rx for Metrogel based on symptoms today. Reviewed the role of probiotics, and boric acid protocol. The patient expressed understanding and agreement with the plan of care. All of her questions and concerns were addressed to the best of my ability. Plan This note is constructed using voice recognition software. While every effort has been made to ensure accuracy, biotech production specialist errors may have been included. Orders: Orders US pelvic and transvaginal Today N83.209 - Unspecified ovarian cyst, unspecified side Bacterial Vaginosis Panel Today N89.8 - Other specified noninflammatory disorders of vagina CT NG by PCR Vag/Cerv Today N89.8 - Other specified noninflammatory disorders of vagina Medications: New metronidazole 0.75%(37.5mg/5gram) 1 appful vaginal DAILY 70 grams 2RF 5 days Refilled norethindrone (contraceptive) (Incassia) 0.35 mg PO DAILY 84 tabs 4RF Coding Level of Care Code Est Pt Prev Care 18-39y(27414) Diagnoses Encounter for well woman exam with routine gynecological exam Z01.419 Ovarian cyst N83.209 Vaginal discharge N89.8
[2025-06-18 12:58] VITALS: BP 110/72; BMI 41.3
--- OUTSIDE RECORDS SUMMARY | 2025-06-18 15:34 | XMS_ITS | Patient Health Record ---
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 Name Role Phone NO, PCP Primary Care Provider [phone] Migration, Provider Unavailable Unavailable Allergies No Known [...] Date Provider Diagnosis [facility] [address] [place] [address] 05/02/2025 Provider Migration Plan Of Treatment No Information Insurance Providers Payer Name Payer Address Payer Phone Subscriber Number Group Number Insured Name Patient Relationship to Insured Coverage Start Date Coverage End Date [place] [employer] [facility] [address] [place] [phone] [id number] Tori Pool Self - patient is the insured 12/04/202 1 Medical (General) History Medical History History ICD Code hypertension
== END 2025-06-18 13:56 | disposition home or self-care (01) ==
LOC: HO.HWS 12:43
PROVIDERS: PCP Internal Medicine; Visit Provider Advanced Practice Midwife
DX: Z01.419 Encounter for gynecological examination (general) (routine) without abnormal findings (principal); N83.209 Unspecified ovarian cyst, unspecified side; N89.8 Other specified noninflammatory disorders of vagina
CPT/HCPCS: 99395; 99459

== ENCOUNTER 2025-06-18 13:55 | Outpatient (REF) | payer OTHER, SELFPAY ==
[2025-06-19 02:07] LABS: Bacterial Vaginosis PCR POSITIVE (Negative); Candida Group PCR NOT DETECTED (Not Detect); Candida glab krusei PCR NOT DETECTED (Not Detect); Trichomonas vaginalis PCR NOT DETECTED (Not Detect)
[2025-06-19 02:38] LABS: CT PCR NOT DETECTED (Not Detect.); NG PCR NOT DETECTED (Not Detect.)
== END 2025-06-18 13:56 | disposition home or self-care (01) ==
LOC: HO.LNP 13:55
PROVIDERS: Visit Provider Advanced Practice Midwife
DX: N89.8 Other specified noninflammatory disorders of vagina (principal); Z20.2 Contact with and (suspected) exposure to infections with a predominantly sexual mode of transmission
CPT/HCPCS: 81515; 87491; 87591

== ENCOUNTER 2025-08-18 16:04 | Outpatient (REF) | payer OTHER, SELFPAY ==
--- OUTSIDE RECORDS SUMMARY | 2025-05-02 16:00 | XMS_ITS ---
Author Organization [facility] Address [address] [place] [address] Care Team Providers Care Jewelry Dipper Name Role Phone NO, PCP Primary Care Provider Migration, Provider Unavailable Unavailable [facility]AS[facility] FOR VISIT [facility] Encounter Medications Medication SIG (Take, Route, Frequency, Duration) Notes Start Date End Date Status Sertraline HCl *Please review a nd pick correct strength-formulatio n from Medispan options. If intended option is not shown, discontinue and re-order from Quick Search* Active Norethindrone *Please review a nd pick correct strength-formulatio n from Medispan options. If intended option is not shown, discontinue and re-order from Quick Search* Active hydrOXYzine HCl *Please review a nd pick correct strength-formulatio n from Medispan options. If intended option is not shown, discontinue and re-order from Quick Search* Active hydroCHLOROthiazide *Please revi ew and pick correct strength-formulatio n from Medispan options. If intended option is not shown, discontinue and re-order from Quick Search* Active amLODIPine Besylate *Please revi ew and pick correct strength-formulatio n from Medispan options. If intended option is not shown, discontinue and re-order from Quick Search* Active Encounters Encounter Location Date Provider Diagnosis [facility] [address] [place] [address] 05/02/2025 Provider Migration Plan Of Treatment No Information Progress Notes * Tori POOL EDOB:[birth year] (35 yo F)Acc No.[id number]:05/02/2025 Patient: Andrew Tori MILTON Provider: :1990 A ge:34 Y S ex:Female Date:05/02/2025 Address: [address] [facility] [address] [place], [id number] Pcp:PCP NO Subjective: * Chief Complaints: * 1 . Multum To Medispan Conversion Encounter. * Medical History: * Medications: T aking Sertraline HCl , Notes to Pharmacist: *Please review and pick correct strength-formulation from Medispan options. If intended option is not shown, discontinue and re-order from Quick Search*, Taking Norethindrone , Notes to Pharmacist: *Please review and pick correct strength-formulation from Medispan options. If intended option is not shown, discontinue and re-order from Quick Search*, Taking hydrOXYzine HCl , Notes to Pharmacist: *Please review and pick correct strength-formulation from Medispan options. If intended option is not shown, discontinue and re-order from Quick Search*, Taking hydroCHLOROthiazide , Notes to Pharmacist: *Please review and pick correct strength-formulation from Medispan options. If intended option is not shown, discontinue and re-order from Quick Search*, Taking amLODIPine Besylate , Notes to Pharmacist: *Please review and pick correct strength-formulation from Medispan options. If intended option is not shown, discontinue and re-order from Quick Search* Objective: * Vitals: Assessment: Plan: * Treatment: * Images: Billing Information: * Visit Code: * Procedure Codes: * Electronic signature of Prov ider Migration on 08/18/2025 at 07:03 PM EST Sign off status: Pending * Provider: Date: 0 05/02/2025 Generated for Girma anna/Madison/Barbara on: 07:03 PM EST
--- NOTE | ~2025-08-18 | US_ITS ---
EXAMINATION: US PELVIS CLINICAL INFORMATION: Unspecified ovarian cyst. COMPARISON: MRI hip revealed cystic lesion left ovary TECHNIQUE: Ultrasound of the pelvis is performed using both transabdominal and transvaginal transducers along with Doppler. Transvaginal imaging is performed due to inadequate visualization transabdominally. FINDINGS: Uterus: The uterus is anteverted and measures 7.8 x 3.4 x 4.6 cm. Cervix is unremarkable. The double wall endometrial thickness is 5 mm. The uterus is smooth in contour and has normal myometrial echogenicity. There is a small hypoechoic lesion in the right body of uterus measuring 1.8 x 1.6 x 1.6 cm. Appears avascular at this time. No additional lesions seen.. Adnexa: Both ovaries are visualized. There is normal color flow to the adnexa. There is no ovarian torsion. There is no pelvic ascites or fluid collection. Right ovary measures 4.0 x 2.7 x 2.8 cm. Volume 15.7 mL. There is a simple anechoic cyst right ovary measuring 2.7 x 2.0 x 2.0 cm. Left ovary measures 2.9 x 1.8 x 2.3 cm. Volume 6.3 mL. No focal lesion seen. There is no free fluid in the cul-de-sac. US/US pelvic and transvaginal IMPRESSION: Small avascular uterine fibroid measuring 1.8 cm. Small right ovarian cyst. Previous MRI visualized left ovarian cyst has resolved Electronically signed by: Mark Anthony Sweet MD 08/18/2025 04:40 PM [facility] [place]
--- OUTSIDE RECORDS SUMMARY | 2025-08-18 19:04 | XMS_ITS | Patient Health Record ---
Author Organization 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 [address] [place] [address] 05/02/2025 Provider Migration Plan Of Treatment No Information Insurance Providers Payer Name Payer Address Payer Phone Subscriber Number Group Number Insured Name Patient Relationship to Insured Coverage Start Date Coverage End Date [place] [facility] [address] [place] [address] [phone] [id number] Tori Pool Self - patient is the insured 12/04/202 1 Medical (General) History Medical History History ICD Code hypertension
== END 2025-08-18 16:05 | disposition home or self-care (01) ==
LOC: HO.US 16:04
PROVIDERS: PCP Internal Medicine; Visit Provider Advanced Practice Midwife
DX: N83.201 Unspecified ovarian cyst, right side (principal)
CPT/HCPCS: 76830; 76856

== ENCOUNTER → 2025-08-18 16:05 | Outpatient (BNV) | payer OTHER, SELFPAY | PROVIDERS: PCP Internal Medicine; Visit Provider Radiology Diagnostic Radiology | DX: N83.291 Other ovarian cyst, right side (principal); D25.9 Leiomyoma of uterus, unspecified | CPT/HCPCS: 76830; 76856 ==